=== PATIENT | female | born 1975 ===

== ENCOUNTER → 2022-09-28 14:16 | Outpatient (BNVA) | payer OTHER, SELFPAY | PROVIDERS: Visit Provider Physician Assistant Surgical ==

== ENCOUNTER 2022-12-20 14:23 | Outpatient (AMB) | payer OTHER, SELFPAY ==
--- NOTE | 2022-12-20 14:51 | MHC.OFFVISWM ---
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: office cmi Allergies sertraline [From ZOLOFT] Allergy (Unknown, Unverified 02/04/20 15:26) FEELS HOT dust,pollen,mold Allergy (Mild, Uncoded 12/20/22 14:59) Itchy Eyes Medication List - Last Reconciled 12/20/22 by PRITESH Knight aspirin 81 mg PO DAILY buspirone 10 mg PO BID diphenhydramine HCl (Banophen) 25 mg PO TID PRN docusate sodium 100 mg PO DAILY fexofenadine 180 mg PO DAILY loratadine (Allergy Relief (loratadine)) 5 mg PO BID topiramate 50 mg PO DAILY HPI HPI Comments History of Present Illness Details Pt is here to start the [facility] surgical weight loss program. She heard about our program on social media. Her goal is to lose weight and achieve a healthy lifestyle. She reports first being concerned about her weight over the last 5 years, highest weight to date was 216. Current weight is 194.8 pounds with a BMI of 36.8. She has tried multiple methods of weight loss including fad diets without permanent results. She lives with her . She does not work. She wakes at:?8 am, and goes to bed at?10 pm. Dinner is at 4. Breakfast: skip or coffee w cream and little sugar AM snack: skip Lunch: skip PM snack: skip Dinner: rice, meat, eggs, bread After dinner: chips, donuts Other snacks: as above Liquids: 64-96 oz water, no soda, no juice Alcohol/marijuana/tobacco intake: none Exercise: none, can join [employer] GERD score: 19 ESTER score: 6 ESS score: 1 QOL score: 115 [facility] Surgical History Hx of cholecystectomy Hx of tubal ligation Family History Mother Arthritis Osteoarthritis High cholesterol Hypertension Diabetes Heart problem Father Liver problem Diabetes Hypertension High cholesterol Social History Alcohol intake: never Patient Tobacco Use Status: Never used Tobacco Review of Systems Const All systems reviewed & are unremarkable except as noted in HPI and below Physical Exam Vital Signs: Last Vital Signs Temp 97.2 F 12/20/22 15:04 Pulse 72 12/20/22 15:04 BP 129/69 12/20/22 15:04 Pulse Ox 98 12/20/22 15:04 Oxygen Delivery Method Room Air 12/20/22 15:04 BMI result Body Mass Index 36.8 Const General: cooperative, healthy appearing and no acute distress Orientation/consciousness: patient oriented x3 HEENT Head: Yes normal to inspection Ears: hearing grossly normal bilaterally General nose exam: Normal external nose present Face and sinus: Yes normal facial exam Eyes General: appearance normal, both eyes and all related structures Resp Effort & Inspection: normal respiratory effort Auscultation: clear to auscultation bilaterally Cardio Rate: regular rate Rhythm: regular rhythm Heart sounds: S1 normal heart sound present and S2 normal heart sound present GI Inspection: Yes normal to inspection, No distended, Yes incision (well healed open cholecystectomy scar) and Yes obesity Palpation (GI): Soft to palpation, nontender and no guarding Auscultation: normal bowel sounds Skin General skin exam: no rashes or lesions noted Neuro General: patient oriented x3 Extrem General: No edema Psych Appearance: grossly normal Mental Status: mental status grossly normal Speech and movement: Normal speech and movement present Affect: normal affect Attitude: cooperative Assessment & Plan Assessment & Plan (1) Obesity (BMI 30-39.9): Code(s): E66.9 - Obesity, unspecified Plan: This is a?47 yo female who will start our SWL program to prepare for bariatric surgery.? Blood work, h pylori , CXR, ECG, Abd US and UGI have been ordered. She is being scheduled for RD and BH initial consultations. She will start SWL classes and watch the first three videos before her next appointment. ? Adequate sleep of 7-8 hours per night discussed, awakening at 8 am and going to bed around 10 pm ? Purchase body composition analyzer scale (Joe raygoza or Mimi perez) and check weight weekly. The best time to do this is first thing in the morning after going to the bathroom. 1. Nutritional counseling: Be sure to careful read the number of scoops per shake Start with 3 Premier Protein shakes ([employer], [employer], [facility]), First shake (1 scoop in 8 oz low fat unsweetened almond milk or water) at 9am-11am, Second shake (1/2 scoop in 8 oz unsweetened almond milk or water) at 1pm-3pm Dinner at 4pm (8 forks of protein and 8 forks of salad/vegetables). Meal to include lean meat (beef, fish, pork, turkey, chicken), cooked vegetables or a salad with olive oil and/or fruits (berries, pears, apples, kiwi). Avoid salt, breads, potatoes, rice, pasta, desserts. 1 protein bar (Zone Perfect bars at [employer], [employer], or [employer]) at 5pm-7pm. Another shake with 1/2 scoop in 8 oz unsweetened almond milk at 8pm-10pm. Try to drink 64 oz of water daily and avoid soda and juices. ?2. Each shake would be drunk slowly, like coffee in a period of 2 hours. ?3. Cut each bar in 4 pieces and eat each piece in 30 min ?to make each bar last 2 hours. ?4. I emphasized the importance of measuring accurately the food portion and measure it carefully when serving the food on the plate ?5. The meal portions include 8 full-size forks of meat and 8 full-size forks of salad. You always eat the meat portion but you can replace up to half of the forks of salad/vegetables with rice, potatoes or pasta, or a fruit ?if you like. The less you do it the better weight loss will be. ?6. One full-size fork is what can be scooped on the fork without falling aside and not what can be bit with the fork. Use regular forks like those you find in a typical restaurant. ?7.? Please send me weight measurements as soon as possible and then once a week. Always include your diet and exercise plan. Alternatively come weekly at the office for weight checks and send me the measurements. ?8. Exercise counseling: Begin by watching a stretching for beginners video. Start slowly and begin to stretch your muscles. You should do this before and after each exercise session to prevent injury. Please join [employer] gym near your home. Ask the distribution center manager or one of the trainers how to use the machines if you are unfamiliar with them. Start elliptical with a resistance of 2. Increase resistance by 1 every 3 min to your most comfortable resistance with a max resistance of 8. Reduce the resistance by 1 every 3 minutes back down to 2 and repeat cycles for 300 calories. Alternatively, start treadmill with a speed of 3.0 and incline of 0, increasing incline by 1 every 3 minutes to the highest comfortable level (max 6 for now) then decrease in the same fashion. Repeat process to a goal of 300 calories. Goal of 2000 calories burned or more weekly. You may also consider use of the stationary bike. The easiest would be to chose the fat-burn or interval training program on the machine and do this until you reach the 300 calorie goal. Alternatively, you can manually adjust the resistance in a similar fashion as mentioned above, (resistance of 2-8 with a goal speed of 12 mph). Tracking calories is essential. 9. Alternatively start walking outside daily, tracking calories with a goal of 300 calories per day, daily. You can download the an[employer] Pop[employer] which can track your time, distance and calories while walking outside. You press start in the anastasiya when you start and then stop when you are finished. 10.? It is important to avoid for at least 18 months postoperatively and it has been discussed at the information session 11. Please get labs, EKG and chest X-Ray within 1 week. 12. Discussed and answered all questions regarding?obtained consent to participate in the [place] [facility]?Registry. 13. Please follow the diet plan exactly, without any change. If you do not like something about the plan or you feel hungry, you need to communicate with me so I can help you revise the plan. You should not change the plan yourself. Text me at [phone] 14. Goal is to lose at least 12 pounds in the first month 15. Goal is to lose 10% of your weight before surgery, which is about 19 lbs. Ultimate weight goal: 175 lbs before surgery 16. Per your insurance company, you will need to be in our program for 3 months prior to approval of your surgery Patient is morbidly obese and is not considered stable at this time.?I spent a total of 70 minutes reviewing/updating records, examining the patient and counseling the patient on weight management as detailed above. Orders: Orders Vitamin B12 and Folate Today E66.9 - Obesity, unspecified Comprehensive Met. Panel Today E66.9 - Obesity, unspecified C Reactive Protein Today E66.9 - Obesity, unspecified Ferritin Today E66.9 - Obesity, unspecified Hemoglobin A1c Today E66.9 - Obesity, unspecified Insulin Today E66.9 - Obesity, unspecified IRON PROFILE Today E66.9 - Obesity, unspecified Lipid Panel Today E66.9 - Obesity, unspecified PTHI Today E66.9 - Obesity, unspecified TSH reflex Free T4 Today E66.9 - Obesity, unspecified Vitamin A Today E66.9 - Obesity, unspecified Vitamin B1 Today E66.9 - Obesity, unspecified Vitamin D 25-OH Total Today E66.9 - Obesity, unspecified Zinc Today E66.9 - Obesity, unspecified ECG 12 lead EKG Today E66.9 - Obesity, unspecified FL upper GI w air Today E66.9 - Obesity, unspecified Complete Blood Count Auto Diff Today E66.9 - Obesity, unspecified H Pylori Breath Test Today E66.9 - Obesity, unspecified US abdomen comp w elastography Today E66.9 - Obesity, unspecified XR chest 2V Today E66.9 - Obesity, unspecified Referrals Behavioral Health Referral E66.9 - Obesity, unspecified Nutrition/Dietitian Referral E66.9 - Obesity, unspecified Coding Level of Care Code New Pt Level 5 (80182) Diagnoses Obesity (BMI 30-39.9) E66.9 Time Spent (min) 99
[2022-12-20 15:04] VITALS: BP 129/69; PULSE 72; TEMP 36.2; O2SAT 98; BMI 36.8
== END 2022-12-20 17:13 | disposition home or self-care (01) ==
PROVIDERS: Visit Provider Physician Assistant Surgical
DX: E66.9 Obesity, unspecified (principal); Z68.36 Body mass index [BMI] 36.0-36.9, adult
CPT/HCPCS: 99205

== ENCOUNTER → 2022-12-20 14:23 | Outpatient (BNVA) | payer OTHER, SELFPAY | PROVIDERS: Visit Provider Physician Assistant Surgical | DX: E66.9 Obesity, unspecified (principal); Z68.36 Body mass index [BMI] 36.0-36.9, adult | CPT/HCPCS: 99202 ==

== ENCOUNTER 2022-12-25 13:56 | Outpatient (REF) | payer OTHER, SELFPAY ==
--- NOTE | ~2022-12-25 | XR_ITS ---
EXAMINATION: XR CHEST CLINICAL INFORMATION: Obesity COMPARISON: None available. TECHNIQUE: 2 views of the chest were obtained. FINDINGS: No significant abnormality is noted involving the heart, lungs, mediastinum, bony thorax or soft tissues. XR/XR chest 2V IMPRESSION: Unremarkable chest examination.
[2022-12-25 14:11] LABS: MANUAL DIFF FLAG NO
--- NOTE | 2022-12-25 14:26 | ECG_ITS ---
Test Reason : E66.9 Blood Pressure : / mmHG Vent. Rate : 073 BPM Atrial Rate : 073 BPM P-R Int : 166 ms QRS Dur : 084 ms QT Int : 390 ms P-R-T Axes : 044 009 013 degrees QTc Int : 429 ms Normal sinus rhythm Normal ECG No previous ECGs available Referred By: Karl Jain Electronically Signed By:Festus Flores
[2022-12-25 14:48] LABS: Basophils Percent Auto 0.6 % (0-2); Eosinophils Absolute Auto 0.1 X10*3/uL (0.0-0.4); Eosinophils Percent Auto 0.8 % (0-4); Hematocrit 39.1 % (37.0-47.0); Hemoglobin 12.7 g/dl (12.0-16.0); Imm Gran Abs Auto 0.02 X10*3/uL (0.00-0.03); Imm Gran Pct Auto 0.3 % (0.0-0.4); Lymphocytes Absolute Auto 1.9 X10*3/uL (1.2-4.9); Lymphocytes Percent Auto 26.1 % (20-40); Mean Corpuscular HGB Conc 32.5 g/dl (31.0-35.0); Mean Corpuscular Hemoglobin 28.2 pg (27.0-33.0); Mean Corpuscular Volume 86.7 fL (80.0-98.0); Mean Platelet Volume 10.7 fL (9.4-12.3); Monocytes Absolute Auto 0.5 X10*3/uL (0.1-1.2); Monocytes Percent Auto 6.8 % (2-11); Neutrophils Absolute Auto 4.7 x10*3/uL (2.0-8.3); Neutrophils Percent Auto 65.4 % (45-73); Platelet Count 339 X10*3/uL (160-400); Red Blood Count 4.51 X10*6/uL (4.20-5.50); Red Cell Distribution Width 13.5 % (11.0-16.0); White Blood Count 7.2 X10*3/uL (4.8-10.8)
[2022-12-25 15:51] LABS: Estimated Average Glucose 123 mg/dL; Hemoglobin A1c % 5.9 %
[2022-12-25 16:13] LABS: Alanine Aminotransferase 32 U/L (0-31); Albumin Level 4.4 g/dL (3.5-5.0); Alkaline Phosphatase 78 U/L (39-117); Anion Gap 14 (12-20); Aspartate Amino Transferase 24 U/L (5-31); Bilirubin Total 0.5 mg/dL (0.0-1.0); Blood Urea Nitrogen 20 mg/dL (9-16); C Reactive Protein 0.74 mg/dL (< or = 0.50); Calcium 9.9 mg/dL (8.4-10.2); Carbon Dioxide 21 mmol/L (22-29); Chloride 110 mmol/L (96-108); Cholesterol 241 mg/dL; Estimated Glomerular Filt Rate > 60; Glucose Random 101 mg/dL (60-115); HDL Cholesterol 44 mg/dL; Iron 56 mcg/dL (30-160); LDL Cholesterol Calculated 165 mg/dl; Percent Iron Saturation 20 % (15-50); Potassium 3.6 mmol/L (3.3-5.1); Sodium 141 mmol/L (135-145); Total Iron Binding Capacity 284 mcg/dL (228-428); Total Protein 8.1 g/dL (6.5-8.0); Triglycerides 164 mg/dL; Unsaturated Iron Binding 228 ug/dL
[2022-12-25 16:19] LABS: Ferritin 248 ng/mL (10-250); Insulin 19 uU/mL (2-29); TSH reflex Free T4 0.79 uIU/mL (0.32-4.0); Vitamin D 25-OH Total 28.8 ng/mL (>30)
[2022-12-25 16:30] LABS: Folate 13.9 ng/mL (> or = 4.0); Vitamin B12 552 pg/mL (200-900)
[2022-12-27 22:09] LABS: Calcium (PTHI) 9.8 mg/dL (8.6-10.2); PTHI 41 pg/mL (16-77)
[2022-12-28 17:02] LABS: Zinc 83 mcg/dL (60-130)
[2022-12-29 17:44] LABS: Vitamin A 76 mcg/dL (38-98)
[2022-12-31 05:18] LABS: Vitamin B1 10 nmol/L (8-30)
== END 2022-12-25 13:57 | disposition home or self-care (01) ==
LOC: HO.XRAY 13:56
PROVIDERS: Visit Provider Physician Assistant Surgical
DX: E66.9 Obesity, unspecified (principal)
CPT/HCPCS: 36415; 71046; 80053; 80061; 82306; 82607; 82728; 82746; 83036; 83525; 83540; 83970; 84425; 84443; 84590; 84630; 85025; 86140; 93005

== ENCOUNTER → 2022-12-25 14:26 | Outpatient (BNV) | payer OTHER, SELFPAY | PROVIDERS: Visit Provider Internal Medicine Cardiovascular Disease | DX: E66.9 Obesity, unspecified (principal) | CPT/HCPCS: 93010 ==

== ENCOUNTER → 2023-01-04 14:30 | Outpatient (BNVA) | payer OTHER, SELFPAY | PROVIDERS: PCP Internal Medicine; Visit Provider Dietitian, Registered | DX: E66.9 Obesity, unspecified (principal); Z68.35 Body mass index [BMI] 35.0-35.9, adult; Z90.49 Acquired absence of other specified parts of digestive tract; Z71.3 Dietary counseling and surveillance | CPT/HCPCS: 97802 ==

== ENCOUNTER 2023-01-18 12:35 | Outpatient (AMB) | payer OTHER, SELFPAY ==
--- NOTE | 2023-01-18 12:38 | A.OFFVIS_ITS ---
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 Allergies sertraline [From ZOLOFT] Allergy (Unknown, Unverified 01/18/23 12:53) FEELS HOT dust,pollen,mold Allergy (Mild, Uncoded 01/18/23 12:53) Itchy Eyes Medication List - Last Reconciled 01/18/23 by PRITESH Knight aspirin 81 mg PO DAILY buspirone 10 mg PO BID cholecalciferol (vitamin D3) 125 mcg PO DAILY 90 days diphenhydramine HCl (Banophen) 25 mg PO TID PRN docusate sodium 100 mg PO DAILY fexofenadine 180 mg PO DAILY loratadine (Allergy Relief (loratadine)) 5 mg PO BID riboflavin (vitamin B2) 400 mg PO DAILY topiramate 50 mg PO DAILY HPI HPI Comments History of Present Illness Details The patient is a pleasant 47 year old female who returns to the clinic for pre-operative surgical weight loss management. They were last seen in the o ffice on 12/20/22, recorded weight at that time was 194.8 pounds, with a BMI of 36.8. Today's weight is 186 pounds and BMI is 35.1. There has been a weight loss of 8.8 pounds since initiating the surgical weight loss program on 12/20/22 with a total body weight loss of 4.5 %. Pre op work up completed as follows: SWL classes:? 08/25 BH appts: 01/28/23 ? ? RD appts: f/u 02/08/23 Labs: 12/25/22-low D H. pylori: 01/18/23-P CXR: 12/25/22-nad EK12/25/22-normal ABD U/S: 01/22/23 UGI: 01/22/23 The patient reports she is following the meal plan. Current meal plan includes: 3 Premier Protein shakes ([employer], [employer], [employer]), First shake (1 scoop in 8 oz low fat unsweetened almond milk or water) at 9am- 11am, Second shake (1/2 scoop in 8 oz unsweetened almond milk or water) at 1pm-3pm Dinner at 4pm (8 forks of protein and 8 forks of salad/vegetables). 1 protein bar (Zone Perfect bars at [employer], [facility], or [employer]) at 5pm-7pm. Another shake with 1/2 scoop in 8 oz unsweetened almond milk at 8pm-10pm. Drinking 32 oz of water Current exercise plan includes: treadmill at home, daily, 300 calories, speed 2.4 incline 3-6 PFSH Surgical History Hx of cholecystectomy Hx of tubal ligation Family History Mother Arthritis Osteoarthritis High cholesterol Hypertension Diabetes Heart problem Father Liver problem Diabetes Hypertension High cholesterol Social History Alcohol intake: never Patient Tobacco Use Status: Never used Tobacco Review of Systems Const All systems reviewed & are unremarkable except as noted in HPI and below Physical Exam Vital Signs: Last Vital Signs Temp 97.3 F 01/18/23 12:51 Pulse 75 01/18/23 12:51 BP 129/76 01/18/23 12:51 Pulse Ox 96 01/18/23 12:51 Oxygen Delivery Method Room Air 01/18/23 12:51 BMI result Body Mass Index 35.1 Const General: healthy appearing and no acute distress Resp Effort & Inspection: normal respiratory effort Auscultation: clear to auscultation bilaterally Cardio Rate: regular rate Rhythm: regular rhythm GI Auscultation: normal bowel sounds Extrem General: Yes normal to inspection Assessment & Plan Assessment & Plan (1) Obesity (BMI 30-39.9): Code(s): E66.9 - Obesity, unspecified Plan: change meal plan to : 3 Premier Protein shakes ([employer], [employer], [employer]), First shake (1 scoop in 8 oz low fat unsweetened almond milk or water) at 9am- 11am, Second shake (1/2 scoop in 8 oz unsweetened almond milk or water) at 1pm-3pm Dinner at 4pm (8 forks of protein and 8 forks of salad/vegetables). Another shake with 1/2 scoop in 8 oz unsweetened almond milk at 8pm-10pm. May move to 7-9 pm as needed Reminded of upcoming appts rct 1 month Coding Level of Care Code Est Pt Level 3 (69650) Diagnoses Obesity (BMI 30-39.9) E66.9
[2023-01-18 12:51] VITALS: BP 129/76; PULSE 75; TEMP 36.3; O2SAT 96; BMI 35.1
== END 2023-01-18 13:24 | disposition home or self-care (01) ==
PROVIDERS: Visit Provider Physician Assistant Surgical
DX: E66.9 Obesity, unspecified (principal); Z68.35 Body mass index [BMI] 35.0-35.9, adult
CPT/HCPCS: 99213

== ENCOUNTER → 2023-01-18 12:35 | Outpatient (BNVA) | payer OTHER, SELFPAY | PROVIDERS: Visit Provider Physician Assistant Surgical | DX: Z11.0 Encounter for screening for intestinal infectious diseases (principal); E66.9 Obesity, unspecified; Z68.35 Body mass index [BMI] 35.0-35.9, adult | CPT/HCPCS: 83013; 99212 ==

== ENCOUNTER 2023-01-22 07:44 | Outpatient (REF) | payer OTHER, SELFPAY ==
--- NOTE | ~2023-01-22 | FL_ITS ---
EXAMINATION: XR FLUOROSCOPY UPPER GI WITH AIR CLINICAL INFORMATION: Preop bariatric surgery; obesity unspecified; mild gastroesophageal reflux. COMPARISON: None TECHNIQUE: Fluoroscopic air contrast upper GI examination was performed utilizing standard techniques with thin and thick barium and effervescent granules. Numerous spot images were obtained. FINDINGS: Lateral cine images of the oropharynx and hypopharynx demonstrate normal swallow mechanism with normal epiglottic inversion and soft palate elevation. No tracheal penetration, glottic or subglottic aspiration identified. No nasopharyngeal reflux present. Hypopharyngeal structures appear normal without evidence of mass or diverticulum. There was no significant cricopharyngeal achalasia. Dual and single contrast images of the esophagus demonstrate normal caliber, contour, and mucosal pattern. No evidence of stricture, mass, or ulcerations identified. Esophageal peristalsis was essentially normal. No evidence of hiatus hernia identified. Mild gastroesophageal reflux was seen during the course of the examination, to the level of the sera. Dual contrast and single contrast images of the stomach demonstrated normal contour and mucosal pattern without evidence of mass, ulceration, or other abnormality. Contrast freely passed into the gastric antrum and duodenal bulb without delay. Single and air-contrast images of the duodenal bulb demonstrate no abnormality. The duodenal sweep has a normal appearance, course, and mucosal fold appearance. The imaged proximal jejunum has a normal fold pattern and caliber. Of note was rapid transit of contrast into the proximal and mid small bowel, with contrast in the region of the mid to distal ileum at the and of the examination. The patient did state she was taking laxative of some sort but could not remember what. Cholecystectomy clips noted. FLUOROSCOPY TIME: 3.6 minutes. Number of Spot Images: 24 DOSE AREA PRODUCT: 43.926 uGy-m2 (microgray-meter squared) FL/FL upper GI w air IMPRESSION: 1. Mild gastroesophageal reflux. Remainder the examination was normal aside from somewhat rapid transit through the small bowel as detailed.
--- NOTE | ~2023-01-22 | US_ITS ---
EXAMINATION: US COMPLETE ABDOMEN WITH LIVER ELASTOGRAPHY CLINICAL INFORMATION: Obesity COMPARISON: None available. TECHNIQUE: Real-time imaging of the abdominal viscera. Noninvasive ultrasound liver fibrosis assessment is performed using Julissa ElastPQ point quantification shear wave elastography (2D-SWE) with a C5-2 MHz transducer. Multiple elastography samples are obtained. FINDINGS: PANCREAS: Not well visualized due to overlying bowel gas. ABDOMINAL AORTA: The proximal, middle, and distal aortic segments are normal in caliber. INFERIOR VENA CAVA: Visualized portions are normal. LIVER: Echogenic liver. Normal size and contour. No focal lesion or intrahepatic biliary duct dilatation. The right lobe measures 17 cm in length. The left lobe measures 7 cm in length. Portal flow is normal/hepatopedal Shear wave liver elastography median stiffness is 1.7 m/s (reference: normal median stiffness is 1.3 m/s or less). IQR/median stiffness to assess sampling precision is 0.08 (reference: good quality data set is IQR/median stiffness of 0.15 or less). GALLBLADDER: Surgically removed COMMON BILE DUCT: Normal in caliber measuring 0.6 cm in diameter. RIGHT KIDNEY: Normal. No hydronephrosis. No renal calculi or focal parenchymal lesions. The kidney measures 11 cm in maximum dimension. LEFT KIDNEY: Normal. No hydronephrosis. No renal calculi or focal parenchymal lesions. The kidney measures 11.66 cm in maximum dimension. SPLEEN: Normal. The spleen measures 9 cm in maximum dimension. FREE FLUID: None. US/US abdomen comp w elastography IMPRESSION: 1. Impression: Echogenic liver probably representing fatty infiltration. Limited visualization of the pancreas. 2. Liver elastography: Adequate liver sampling. Slightly increased liver stiffness suggestive of compensated advanced chronic liver disease but need further test for confirmation. REFERENCE: Society of Radiologists in Ultrasound Liver Stiffness Thresholds (2020): LIVER STIFFNESS THRESHOLDS: *Liver Stiffness equal or less than 1.3 m/s: High probability of being normal. *Liver Stiffness less than 1.7 m/s: In the absence of other known clinical signs, rules out compensated advanced chronic liver disease. *Liver Stiffness 1.7-2.1 m/s: Suggestive of compensated advanced chronic liver disease but need further test for confirmation. *Liver Stiffness over 2.1 m/s: Rules in compensated advanced chronic liver disease. *Liver Stiffness over 2.4 m/s: Suggestive of clinically significant portal hypertension. QUALITY OF DATA SET: *IQR/Median value equal or less than 0.15 implies a quality data set. *IQR/Median value over 0.15 implies a poor quality data set. SIGNIFICANT CHANGE FROM PRIOR EXAM: Significant change if liver stiffness measurement is 10% or greater from prior exam. OTHER CONSIDERATIONS: The stage of liver fibrosis may be overestimated in the setting of acute hepatitis, liver inflammation, elevated liver function tests, hepatic vascular congestion, obstructive cholestasis, non-fasting state, and infiltrative diseases such as amyloidosis and lymphoma. In some patients with NAFLD, the liver stiffness thresholds for compensated advanced chronic liver disease may be lower. In causes other than viral hepatitis and NAFLD, liver stiffness thresholds are not well established.
== END 2023-01-22 07:45 | disposition home or self-care (01) ==
LOC: HO.US 07:44
PROVIDERS: PCP Internal Medicine; Visit Provider Physician Assistant Surgical
DX: E66.9 Obesity, unspecified (principal)
CPT/HCPCS: 74246; 76705; 76981

== ENCOUNTER → 2023-01-22 07:45 | Outpatient (BNV) | payer OTHER, SELFPAY | PROVIDERS: PCP Internal Medicine; Visit Provider Radiology Diagnostic Radiology | DX: K21.9 Gastro-esophageal reflux disease without esophagitis (principal) | CPT/HCPCS: 74246 ==

== ENCOUNTER 2023-02-11 12:00 | Outpatient (AMB) | payer OTHER, SELFPAY ==
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
== END 2023-02-11 13:00 | disposition home or self-care (01) ==
LOC: HO.HBST 12:34
PROVIDERS: PCP Internal Medicine; Visit Provider Counselor Mental Health
DX: F43.9 Reaction to severe stress, unspecified (principal); F41.8 Other specified anxiety disorders; F41.0 Panic disorder [episodic paroxysmal anxiety]
CPT/HCPCS: 90791

== ENCOUNTER → 2023-02-11 12:00 | Outpatient (BNVA) | payer OTHER, SELFPAY | PROVIDERS: PCP Internal Medicine; Visit Provider Counselor Mental Health ==

== ENCOUNTER 2023-02-22 08:44 | Outpatient (AMB) | payer OTHER, SELFPAY ==
--- NOTE | 2023-02-22 08:49 | A.OFFVIS_ITS ---
Intake VS Expanded 02/22/23 09:03 BP 112/68 Blood Pressure Location Rt brachial Blood Pressure Position Sitting Pulse 68 Pulse Source Pulse Oximeter Temp 96.4 F L Temperature Source Temporal Artery Scan Pulse Oximetry 99 Oxygen Delivery Method Room Air Height 5 ft 1 in Weight 177 lb BMI 33.4 Body Fat % 41.9 Body Fat Mass 74.0 Fat Free Mass 102.8 Visceral Fat Rating 10.0 Body Water % 41.4 Body Water Mass 73.2 Muscle Mass/Score 97.4 Basal Metabolic Rate/Score 1,436 Intake Visit Reasons: (OV) F/U SWL Global Safety Officer Required: Yes Global Safety Officer Name: office cmi Allergies sertraline [From ZOLOFT] Allergy (Unknown, Verified 02/22/23 08:58) FEELS HOT dust,pollen,mold Allergy (Mild, Uncoded 01/18/23 12:53) Itchy Eyes Medication List - Last Reconciled 02/22/23 by PRITESH Knight aspirin 81 mg PO DAILY bupropion HCl (Wellbutrin XL) 300 mg PO QAM buspirone 10 mg PO BID cholecalciferol (vitamin D3) 125 mcg PO DAILY 90 days diphenhydramine HCl (Banophen) 25 mg PO TID PRN docusate sodium 100 mg PO DAILY fexofenadine 180 mg PO DAILY loratadine (Allergy Relief (loratadine)) 5 mg PO BID riboflavin (vitamin B2) 400 mg PO DAILY topiramate 50 mg PO DAILY HPI HPI Comments History of Present Illness Details The patient is a pleasant 47 year old female who returns to the clinic for pre-operative surgical weight loss management. They were last seen in the office on 01/18/23, recorded weight at that time was 186 pounds, with a BMI of 35.1. Today's weight is 177 pounds and BMI is 33.4. There has been a weight loss of 17.8 pounds since initiating the surgical weight loss program on 12/20/22 with a total body weight loss of 9.1 %. Pre op work up completed as follows: SWL classes:? 08/25 BH appts: f/u 03/13/23 ? ? RD appts: f/u 03/05/23 Labs: 12/25/22-low D H. pylori: 01/18/23-neg CXR: 12/25/22-nad EK12/25/22-normal ABD U/S: 01/22/23-fatty liver UGI: 01/22/23-mild gerd The patient reports she is following the meal plan. Current meal plan includes: 3 Premier Protein shakes ([employer], [employer], [employer]), First shake (1 scoop in 8 oz low fat unsweetened almond milk or water) at 9am- 11am, Second shake (1/2 scoop in 8 oz unsweetened almond milk or water) at 1pm-3pm Dinner at 4pm (8 forks of protein and 8 forks of salad/vegetables). Another shake with 1/2 scoop in 8 oz unsweetened almond milk at 8pm-10pm. May move to 7-9 pm as needed Drinking 32 oz of water Current exercise plan includes: treadmill at home, daily, 300 calories, speed 2.4 incline 3-6 PFSH Surgical History Hx of cholecystectomy Hx of tubal ligation Family History Mother Arthritis Osteoarthritis High cholesterol Hypertension Diabetes Heart problem Father Liver problem Diabetes Hypertension High cholesterol Social History Alcohol intake: never Patient Tobacco Use Status: Never used Tobacco Review of Systems Const All systems reviewed & are unremarkable except as noted in HPI and below Physical Exam Const General: healthy appearing and no acute distress Resp Effort & Inspection: normal respiratory effort Auscultation: clear to auscultation bilaterally Cardio Rate: regular rate Rhythm: regular rhythm GI Auscultation: normal bowel sounds Extrem General: Yes normal to inspection Assessment & Plan Assessment & Plan (1) Obesity (BMI 30-39.9): Code(s): E66.9 - Obesity, unspecified Plan: change meal plan 2 Premier Protein shakes ([employer], [employer], [employer]), First shake (1/2 scoop in 8 oz low fat unsweetened almond milk or water) at 9am- 11am, Second shake (1/2 scoop in 8 oz unsweetened almond milk or water) at 1pm-3pm Dinner at 4pm (7 forks of protein and 7 forks of salad/vegetables). continue exercise speed 2.8 incline 0-6 reminded of upcoming BH/RD appts transfer care to Dr Trivedi Coding Level of Care Code Est Pt Level 3 (35418) Diagnoses Obesity (BMI 30-39.9) E66.9
[2023-02-22 09:03] VITALS: BP 112/68; PULSE 68; TEMP 35.8; O2SAT 99; BMI 33.4
== END 2023-02-22 09:19 | disposition home or self-care (01) ==
PROVIDERS: Visit Provider Physician Assistant Surgical
DX: E66.9 Obesity, unspecified (principal); Z68.33 Body mass index [BMI] 33.0-33.9, adult
CPT/HCPCS: 99213

== ENCOUNTER → 2023-02-22 08:44 | Outpatient (BNVA) | payer OTHER, SELFPAY | PROVIDERS: Visit Provider Physician Assistant Surgical | DX: E66.9 Obesity, unspecified (principal); Z68.33 Body mass index [BMI] 33.0-33.9, adult | CPT/HCPCS: 99212 ==

== ENCOUNTER 2023-03-05 15:46 | Outpatient (AMB) | payer OTHER, SELFPAY ==
--- NOTE | 2023-03-05 15:42 | A.OFFVIS_ITS ---
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 194# current weight 177# Reason for consult elevated BMI Diet Assmnt0 Details pt states she is getting bored of her nutrition plan 9am-11am shake 1/2 scoop premier powder - 7g protein 1-3pm shake 1/2 scoop premier powder - 7 g protein [id number]: fish or chicken 8 forks of each protein intake is only about 40g per day SWL online classes: completed, did not score well on class 4 Dietary counseling reduction Diagnosis Nutrition problem #1 overweight/obesity As related to (etiology) #1 excess energy intake and physical inactivity As evidenced by (sign/symptom) #1 high BMI Monitoring/Goals Nutrition problem monitoring total energy intake, level of knowledge/skill, total PRO intake, total CHO intake and weight Outcome progress progressing Learning/Education Readiness to learn good Stages of change action Educational materials provided Yes (MN cookbook, macros, label, expect post op) Most Recent Diabetes Results: No Data to Display PFSH Surgical History Hx of cholecystectomy Hx of tubal ligation Family History Mother Arthritis Osteoarthritis High cholesterol Hypertension Diabetes Heart problem Father Liver problem Diabetes Hypertension High cholesterol Social History Alcohol intake: never Patient Tobacco Use Status: Never used Tobacco Assessment & Plan Assessment & Plan (1) Obesity (BMI 30-39.9): Code(s): E66.9 - Obesity, unspecified Patient Instructions: Patient is cleared from a nutrition standpoint for bariatric surgery. Educational requirements have been completed. Reviewed vitamin supplementation and commitment to protein shake for several months post surgery. Encouraged communication with office as needed talk to MD or PA as protein intake is low Telehealth Telehealth Location of provider rendering services: practice address Location of patient: address on file Patient Identification confirmed using: Name, : Yes Telehealth method: voice only Patient verbally consented to treatment: Yes Patient verbally consented to billing insurance company: Yes Patient informed of any privacy concerns related to visit: Yes Minutes spent on Phone/Video with Pt.: 30 Coding Level of Care Code Nutr Indiv Subseq (24895) Diagnoses Obesity (BMI 30-39.9) E66.9 Time Spent (min) 30
== END 2023-03-05 16:02 | disposition home or self-care (01) ==
LOC: HO.HBS 15:46
PROVIDERS: Visit Provider Dietitian, Registered
DX: E66.9 Obesity, unspecified (principal)

== ENCOUNTER → 2023-03-05 15:46 | Outpatient (BNVA) | payer OTHER, SELFPAY | PROVIDERS: Visit Provider Dietitian, Registered | DX: E66.9 Obesity, unspecified (principal); Z90.49 Acquired absence of other specified parts of digestive tract | CPT/HCPCS: 97803 ==

== ENCOUNTER 2023-03-22 08:04 | Outpatient (AMB) | payer OTHER, SELFPAY ==
--- NOTE | 2023-03-22 09:47 | MHC.OFFVISWM ---
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* Allergies sertraline [From ZOLOFT] Allergy (Unknown, Verified 03/22/23 09:48) FEELS HOT dust,pollen,mold Allergy (Mild, Uncoded 03/22/23 09:48) Itchy Eyes Medication List - Last Reconciled 03/22/23 by Kaiden Fisher MD aspirin 81 mg PO DAILY bupropion HCl (Wellbutrin XL) 300 mg PO QAM buspirone 10 mg PO BID cholecalciferol (vitamin D3) 125 mcg PO DAILY 90 days diphenhydramine HCl (Banophen) 25 mg PO TID PRN docusate sodium 100 mg PO DAILY fexofenadine 180 mg PO DAILY loratadine (Allergy Relief (loratadine)) 5 mg PO BID nabumetone 500 mg PO BID riboflavin (vitamin B2) 400 mg PO DAILY topiramate 50 mg PO DAILY HPI TV Consult/Transfer 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* HPI Details Start time: 9.30am, End time: 10.38am ?I spent 63 minutes speaking with the patient on the phone plus an additional 5 minutes reviewing and updating records for a total of 68 minutes HPI Comments History of Present Illness Details Overall weight loss: 19.5lbs, or 10.01% TBWL Is doing 2 Premier protein shakes (1 scoop in 8oz almond milk) and one meal (7 forks of protein and 7 forks of salad or vegetables) Exercise: [facility] Medical History (Updated 03/22/23 @ 09:57 by Kaiden Fisher MD) DJD (degenerative joint disease) Migraines GERD (gastroesophageal reflux disease) Anxiety Depression Hyperlipidemia Surgical History Hx of tubal ligation Hx of cholecystectomy Family History Mother Arthritis Osteoarthritis High cholesterol Hypertension Diabetes Heart problem Father Liver problem Diabetes Hypertension High cholesterol Social History Alcohol intake: never Patient Tobacco Use Status: Never used Tobacco Assessment & Plan Assessment & Plan (1) Obesity (BMI 30-39.9): Code(s): E66.9 - Obesity, unspecified Plan: 1. Plan for lap sleeve gastrectomy including upper GI endoscopy. All tests has been completed and reviewed and the patient is cleared for the surgery. ?If diaphragmatic or ventral hernias are present at time of surgery, these will be repaired laparoscopically as well. Risks and complications were discussed in detail including possible conversion to an open procedure, anastomotic leak, bleeding requiring transfusion, small bowel obstruction, , DVT and pulmonary embolism, cardiac, or pulmonary complications, as jail complications such as anastomotic ulcer, insufficient weight loss and vitamin deficiencies. I emphasized the importance of close follow-up, adherence to instructions and good communication. So far she has proven to be an excellent communicator and very compliant with all our directions accomplishing a great weight loss. I believe that she is an excellent candidate and she is ready. 2. Change nutritional plan to 2 Premier protein shakes (HALF scoop each in 8oz almond milk) at 10am-12pm and 2pm-4pm, dinner at 6pm (8 forks of protein and 8 forks of marlon or vegetables) and one Celebrate protein bar at 8pm-10pm 3. continue the [employer] device daily for 30 minutes 4. Please purchase a stationary bike at home that can track calories. Let me know if you do so I can give you an exercise plan. 5. Continue to send me weight measurements weekly on (2) BMI 33.0-33.9,adult: Code(s): Z68.33 - Body mass index [BMI] 33.0-33.9, adult (3) GERD (gastroesophageal reflux disease): Code(s): K21.9 - Gastro-esophageal reflux disease without esophagitis Telehealth Telehealth Location of provider rendering services: practice address Location of patient: address on file Patient Identification confirmed using: Name, : Yes Telehealth method: voice only Patient verbally consented to treatment: Yes Patient verbally consented to billing insurance company: Yes Patient informed of any privacy concerns related to visit: Yes Minutes spent on Phone/Video with Pt.: 68 Coding Level of Care Code Tele Est Pt Level 5 (07609) Diagnoses Obesity (BMI 30-39.9) E66.9 BMI 33.0-33.9,adult Z68.33 GERD (gastroesophageal reflux disease) K21.9 Time Spent (min) 68
[2023-03-22 10:02] VITALS: BMI 33.1
== END 2023-03-22 10:39 | disposition home or self-care (01) ==
LOC: HO.HBS 08:04
PROVIDERS: Visit Provider Surgery
DX: E66.9 Obesity, unspecified (principal); Z68.33 Body mass index [BMI] 33.0-33.9, adult; K21.9 Gastro-esophageal reflux disease without esophagitis
CPT/HCPCS: 99215

== ENCOUNTER → 2023-03-22 08:04 | Outpatient (BNVA) | payer OTHER, SELFPAY | PROVIDERS: Visit Provider Surgery ==

== ENCOUNTER 2023-04-08 12:30 | Outpatient (AMB) | payer OTHER, SELFPAY ==
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
== END 2023-04-08 13:00 | disposition home or self-care (01) ==
LOC: HO.HBST 12:38
PROVIDERS: Visit Provider Counselor Mental Health
DX: F41.0 Panic disorder [episodic paroxysmal anxiety] (principal); F43.9 Reaction to severe stress, unspecified; F41.8 Other specified anxiety disorders
CPT/HCPCS: 90834

== ENCOUNTER → 2023-04-08 12:30 | Outpatient (BNVA) | payer OTHER, SELFPAY | PROVIDERS: Visit Provider Counselor Mental Health ==

== ENCOUNTER 2023-04-29 10:15 | Outpatient (REF) | payer OTHER, SELFPAY ==
[2023-04-29 10:44] LABS: MANUAL DIFF FLAG NO
[2023-04-29 10:55] LABS: Basophils Percent Auto 0.7 % (0-2); Eosinophils Absolute Auto 0.1 X10*3/uL (0.0-0.4); Eosinophils Percent Auto 1.2 % (0-4); Hematocrit 39.8 % (37.0-47.0); Hemoglobin 12.8 g/dl (12.0-16.0); Imm Gran Abs Auto 0.02 X10*3/uL (0.00-0.03); Imm Gran Pct Auto 0.3 % (0.0-0.4); Lymphocytes Absolute Auto 1.5 X10*3/uL (1.2-4.9); Lymphocytes Percent Auto 25.2 % (20-40); Mean Corpuscular HGB Conc 32.2 g/dl (31.0-35.0); Mean Corpuscular Hemoglobin 28.2 pg (27.0-33.0); Mean Corpuscular Volume 87.7 fL (80.0-98.0); Mean Platelet Volume 10.9 fL (9.4-12.3); Monocytes Absolute Auto 0.3 X10*3/uL (0.1-1.2); Monocytes Percent Auto 5.4 % (2-11); Neutrophils Absolute Auto 4.1 x10*3/uL (2.0-8.3); Neutrophils Percent Auto 67.2 % (45-73); Platelet Count 302 X10*3/uL (160-400); Red Blood Count 4.54 X10*6/uL (4.20-5.50); Red Cell Distribution Width 13.5 % (11.0-16.0); White Blood Count 6.1 X10*3/uL (4.8-10.8)
[2023-04-29 11:01] LABS: Prothrombin Time 12.1 SEC (11.1-13.3)
[2023-04-29 11:03] LABS: Partial Thromboplastin Time 31.8 SEC (26.0-36.4)
[2023-04-29 11:05] LABS: Estimated Average Glucose 126 mg/dL
[2023-04-29 11:31] LABS: Alanine Aminotransferase 41 U/L (0-31); Albumin Level 4.3 g/dL (3.5-5.0); Alkaline Phosphatase 87 U/L (39-117); Anion Gap 11 (12-20); Aspartate Amino Transferase 22 U/L (5-31); Bilirubin Total 0.4 mg/dL (0.0-1.0); Blood Urea Nitrogen 24 mg/dL (9-16); C Reactive Protein 0.43 mg/dL (< or = 0.50); Calcium 10.1 mg/dL (8.4-10.2); Carbon Dioxide 23 mmol/L (22-29); Chloride 111 mmol/L (96-108); Cholesterol 218 mg/dL (<200); Estimated Glomerular Filt Rate 52; Glucose Random 124 mg/dL (60-115); HDL Cholesterol 37 mg/dL (>40); LDL Cholesterol Calculated 151 mg/dL (<100); Potassium 4.4 mmol/L (3.3-5.1); Sodium 141 mmol/L (135-145); Triglycerides 154 mg/dL (<150)
[2023-04-29 11:52] LABS: Insulin 22 uU/mL (2-29); TSH reflex Free T4 0.94 uIU/mL (0.32-4.0)
== END 2023-04-29 10:16 | disposition home or self-care (01) ==
LOC: HO.LAB 10:15
PROVIDERS: Visit Provider Surgery
DX: E66.9 Obesity, unspecified (principal); E78.5 Hyperlipidemia, unspecified
CPT/HCPCS: 36415; 80053; 80061; 83036; 83525; 84443; 85025; 85610; 85730; 86140; 86850; 86900; 86901

== ENCOUNTER 2023-05-03 09:06 | Outpatient (AMB) | payer OTHER, SELFPAY ==
--- NOTE | 2023-05-03 09:33 | A.OFFVIS_ITS ---
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* Allergies sertraline [From ZOLOFT] Allergy (Unknown, Verified 05/03/23 09:39) FEELS HOT dust,pollen,mold Allergy (Mild, Uncoded 05/03/23 09:39) Itchy Eyes Medication List - Last Reconciled 05/03/23 by Kaiden Fisher MD bupropion HCl (Wellbutrin XL) 300 mg PO QAM buspirone 10 mg PO BID cholecalciferol (vitamin D3) 125 mcg PO DAILY 90 days diphenhydramine HCl (Banophen) 25 mg PO TID PRN docusate sodium (Colace) 100 mg PO DAILY docusate sodium 100 mg PO DAILY fexofenadine 180 mg PO DAILY loratadine (Allergy Relief (loratadine)) 5 mg PO BID nabumetone 500 mg PO BID ondansetron 4 mg PO Q12H pantoprazole 40 mg PO DAILY polyethylene glycol 3350 (Miralax) 17 grams PO DAILY riboflavin (vitamin B2) 400 mg PO DAILY sucralfate 10 mL PO BID topiramate 50 mg PO DAILY HPI TV 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* HPI Details Start time: 8.18am, End time: 9.38am ?I spent 15 minutes speaking with the patient on the phone plus an additional 5 minutes reviewing and updating records for a total of 20 minutes HPI Comments History of Present Illness Details Overall weight loss: 27.3lbs, or 14% TBWL Is doing 2 Premier protein shakes (1/2 scoop in almond milk) and 3 Premier shakes with one scoop each [facility] Medical History (Updated 04/28/23 @ 19:04 by Kaiden Fisher MD) DJD (degenerative joint disease) Migraines GERD (gastroesophageal reflux disease) Anxiety Depression Hyperlipidemia Surgical History Hx of tubal ligation Hx of cholecystectomy Family History Mother Arthritis Osteoarthritis High cholesterol Hypertension Diabetes Heart problem Father Liver problem Diabetes Hypertension High cholesterol Social History Alcohol intake: never Patient Tobacco Use Status: Never used Tobacco Assessment & Plan Assessment & Plan (1) Obesity (BMI 30-39.9): Code(s): E66.9 - Obesity, unspecified Plan: 1. Plan for lap sleeve gastrectomy including upper GI endoscopy. All tests has been completed and reviewed and the patient is cleared for the surgery. ?If diaphragmatic or ventral hernias are present at time of surgery, these will be repaired laparoscopically as well. Risks and complications were discussed in d etail including possible conversion to an open procedure, anastomotic leak, bleeding requiring transfusion, small bowel obstruction, , DVT and pulmonary embolism, cardiac, or pulmonary complications, as prison complications such as anastomotic ulcer, insufficient weight loss and vitamin deficiencies. I emphasized the importance of close follow-up, adherence to instructions and good communication. So far she has proven to be an excellent communicator and very compliant with all our directions accomplishing a great weight loss. I believe that she is an excellent candidate and she is ready. 2. Preop prescriptions were provided and explained the purpose of each one. Need to be purchased preop. Start Pantoprazole now as you get it from the pharmacy, 1 pill per day. Sucralfate and Zofran are for after surgery as needed. 3. Bowel prep: please do 7 packets ?of Miralax mixing each one with a an 8oz glass of water, crystal light, gatorade zero, or propel ?on 05/07/23 and the same amount on 05/08/23. Continue the protein shakes during ?the bowel prep. 4. Needs to purchase 1oz medicine cups . 5. Needs to purchase Children's liquid Tylenol for postop pain control. 6. She needs to stop the?aspirin and Nabumetone as of Saturday04/29/23. Avoid motrin, Advil, Aleve, Ibuprofen, Naproxyn. Tylenol is OK. 7. She needs to purchase the Celebrate 4:1 protein shakes from the hospital's gift shop. 8. Will do basic preop blood work-up any day between Saturday04/23/22 and Saturday04/27/22 fasting for 12 hours and is scheduled to see the Anesthesiologist prior to the day of surgery. 9. Importance of adherence to postop folllow-up and recommendations was underscored and she understands that. ? 10. Stop food and bars as of Saturday04/29/23 and continue with 2 Premier protein shakes (HALF scoop EACH in 8oz almond milk) at 9am-11am and 12pm-2pm,? and three more Premier protein shakes with ONE scoop in 8oz of almond milk at 3pm-5pm, 6pm-8pm and 9pm-11pm 11. No soups, broths or V8 12. The patient's medical history has been reviewed and they are considered low risk for post op DVT and therefore DVT prophylaxis is not considered necessary. Travel after surgery was reviewed. The patient has not disclosed any travel plans during the first 30 days after surgery and they have been advised that within the first 30 days after surgery any bus, plane, train or car travel over 2 hours in duration is contraindicated due to the possibility of developing blood clots from immobility. Any travel, needs to include periods of ambulation of 10 minutes in duration every 2 hours.? Patient was instructed to discuss any plans for travel during this period with their bariatric surgeon. 13. Please take at the day of surgery the following medications: NONE 14. Stop any control pills and don't use them for one month after surgery 15. Absolutely no smoking or vaping, or marijuana until the surgery and for at least the first 4 weeks. Only nicotine patches are allowed. 16. Send me weight measurements on Saturday and then on 05/09/23 the day of surgery before you go to the hospital. 17. Avoid any steroids by mouth for any reason. Let me know if someone prescribes them to you Telehealth Telehealth Location of provider rendering services: practice address Location of patient: address on file Patient Identification confirmed using: Name, : Yes Telehealth method: voice only Patient verbally consented to treatment: Yes Patient verbally consented to billing insurance company: Yes Patient informed of any privacy concerns related to visit: Yes Minutes spent on Phone/Video with Pt.: 20 Coding Level of Care Code Tele Est Pt Level 3 (78550) Diagnoses Obesity (BMI 30-39.9) E66.9 Time Spent (min) 20
[2023-05-03 09:34] VITALS: BMI 31.6
== END 2023-05-03 09:40 | disposition home or self-care (01) ==
LOC: HO.HBS 09:07
PROVIDERS: Visit Provider Surgery
DX: E66.9 Obesity, unspecified (principal)
CPT/HCPCS: 99213

== ENCOUNTER → 2023-05-03 09:06 | Outpatient (BNVA) | payer OTHER, SELFPAY | PROVIDERS: Visit Provider Surgery ==

== ENCOUNTER 2023-05-07 10:22 | Day surgery (SDC) | payer OTHER, SELFPAY ==
[2023-05-03 13:30] VITALS: BMI 31.6
--- NOTE | 2023-05-04 16:07 | MHC.SHP ---
Pre-Procedural Eval Section A Date of Service: 05/04/23 The patient is an INPATIENT: No The History & Physical has been completed within 30 days and I have reviewed it.: Yes Section B Chief Complaint: Obesity, unspecified Relevant Family History (Specify if Yes): No Relevant Social History: None Present Medications: None Medical History: No relevant PMH History of Previous Operations: No relevant previous surgery Allergies: Allergies Allergy/AdvReac Type Severity Reaction Status Date / Time sertraline [From ZOLOFT] Allergy Intermediate flushing/feels Verified 05/03/23 12:00 hot dust,pollen,mold Allergy Mild Itchy Eyes Uncoded 05/03/23 09:39 Review of Systems Sugical H&P ROS: Negative: Constitution, Cardiovascular, Respiratory, Neurological, Psychiatric, Hem-Onc, Allergic/Immunologic, Gastrointestinal, Genitourinary, Musculoskeletal, Integumentary, Endocrine and Eyes/Ears/Nose/Throat Exam Surgical H&P Exam: Normal: HEENT, Normal: Heart, Normal: Lungs, Normal: Extremities, Normal: Abdomen, Normal: Skin and Normal: Neurological Plan Diagnosis/Plan: Unchanged I have reviewed the history and physical and performed a pertinent physical examination on my patient. No changes have occurred unless specified. Time Spent With Patient Time: Total time managing care of this patient today ____ minutes.
--- NOTE | 2023-05-06 09:23 | HO.ANESPROP2 ---
Documented by User: Diana Ennis NP 05/06/23 09:25 HPI - Anesthesia Eval Consult details Narrative: 47yo F for Gastrectomy Sleeve- EGD, possible diaphragmatic hernia, possible ventral hernia, possible open PMFSH Active Problems Active Problems: All Active Problems (Updated 05/03/23 @ 13:27 by Alannah Gao RN) Constipation (Acute) BMI 33.0-33.9,adult (Acute) Obesity (BMI 30-39.9) (Acute) DJD (degenerative joint disease) (Acute) Migraines (Acute) GERD (gastroesophageal reflux disease) (Acute) Anxiety (Acute) Depression (Acute) Hyperlipidemia (Acute) Past Medical History Medical History Asthma DJD (degenerative joint disease) Migraines GERD (gastroesophageal reflux disease) Anxiety Depression Hyperlipidemia Family History Family History Mother Arthritis Osteoarthritis High cholesterol Hypertension Diabetes Heart problem Father Liver problem Diabetes Hypertension High cholesterol Surgical History Surgical History Hx of tubal ligation Hx of cholecystectomy Social History Social History Are you a primary critical care registered nurse to a significant other at home: No Do you presently have visiting nurse or other home services: No Alcohol intake: never Patient Tobacco Use Status: Former Tobacco user Quit Date: age 36 Tobacco use type: Cigarette Use of substances other than those prescribed or required for medical reasons: No Have you been hit, kicked, punched, or otherwise hurt by someone within the past year? If so, by whom?: No Are you DNR?: No Advance Directives: No Advance Directives Information Provided: No Advance Directives on File: No Recently lost weight without trying: No Eating poorly because of decreased appetite: No Nutrition Risks: No Nutritional Risk Patient : No (has IUD-irregular menses) FDLMP: 03/24/23 : No Poor oral hygiene: No (missing teeth) Meds Allergies Allergy/AdvReac Type Severity Reaction Status Date / Time sertraline [From ZOLOFT] Allergy Intermediate flushing/feels Verified 05/03/23 12:00 hot dust,pollen,mold Allergy Mild Itchy Eyes Uncoded 12/15/23 09:39 Home Medications Medication Instructions Recorded Confirmed Last Taken Type buspirone 10 mg tablet 10 mg PO BID 12/20/22 05/03/23 05/06/23 History diphenhydramine HCl 25 mg capsule 25 mg PO TID PRN Anxiety 12/20/22 05/03/23 Unknown History (Banophen) fexofenadine 180 mg tablet 180 mg PO DAILY 12/20/22 05/03/23 05/06/23 History topiramate 50 mg capsule,extended 50 mg PO BID 12/20/22 05/03/23 05/06/23 History release 24 hr riboflavin (vitamin B2) 400 mg 400 mg PO DAILY 01/18/23 05/03/23 05/06/23 History tablet bupropion HCl 300 mg 24 hr tablet, 300 mg PO QAM 02/22/23 05/03/23 05/06/23 History extended release (Wellbutrin XL) fluticasone propionate 110 2 puff inhalation BID 05/03/23 05/03/23 05/07/23 History mcg/actuation HFA aerosol inhaler Exam Height,Weight and Vital Signs: Height 5 ft 1 in Weight 75.75 kg Pertinent Lab Results Pertinent Lab Results: Laboratory Tests 04/29/23 10:40 Blood Type A Positive Antibody Screen NEGATIVE Laboratory Tests 04/29/23 10:43 WBC 6.1 Hgb 12.8 Hct 39.8 Plt Count 302 Sodium 141 Potassium 4.4 D Chloride 111 H Carbon Dioxide 23 BUN 24 H Creatinine 1.13 Narrative Narrative: EKG 12/2022 Vent. Rate : 073 BPM Atrial Rate : 073 BPM P-R Int : 166 ms QRS Dur : 084 ms QT Int : 390 ms P-R-T Axes : 044 009 013 degrees QTc Int : 429 ms Normal sinus rhythm Normal ECG No previous ECGs available Assessment and Plan Assessment Anesthesia Assessment: Chart Reviewed Documented by User: Eduardo Menendez MD 05/07/23 12:40 [facility] Past Medical History Medical History Asthma DJD (degenerative joint disease) Migraines GERD (gastroesophageal reflux disease) Anxiety Depression Hyperlipidemia Family History Family History Mother Arthritis Osteoarthritis High cholesterol Hypertension Diabetes Heart problem Father Liver problem Diabetes Hypertension High cholesterol Family history of problems with anesthesia: No Surgical History Surgical History Hx of tubal ligation Hx of cholecystectomy History of Problems with Anesthesia: No Social History Social History Are you a primary critical care registered nurse to a significant other at home: No Do you presently have visiting nurse or other home services: No Alcohol intake: never Patient Tobacco Use Status: Former Tobacco user Quit Date: age 36 Tobacco use type: Cigarette Use of substances other than those prescribed or required for medical reasons: No Have you been hit, kicked, punched, or otherwise hurt by someone within the past year? If so, by whom?: No Are you DNR?: No Advance Directives: No Advance Directives Information Provided: No Advance Directives on File: No Recently lost weight without trying: No Eating poorly because of decreased appetite: No Nutrition Risks: No Nutritional Risk Patient : No (has IUD-irregular menses) FDLMP: 03/24/23 : No Poor oral hygiene: No (missing teeth) Meds Allergies Allergy/AdvReac Type Severity Reaction Status Date / Time sertraline [From ZOLOFT] Allergy Intermediate flushing/feels Verified 05/03/23 12:00 hot dust,pollen,mold Allergy Mild Itchy Eyes Uncoded 05/03/23 09:39 Home Medications Medication Instructions Recorded Confirmed Last Taken Type buspirone 10 mg tablet 10 mg PO BID 12/20/22 05/03/23 05/06/23 History diphenhydramine HCl 25 mg capsule 25 mg PO TID PRN Anxiety 12/20/22 05/03/23 Unknown History (Banophen) fexofenadine 180 mg tablet 180 mg PO DAILY 12/20/22 05/03/23 05/06/23 History topiramate 50 mg capsule,extended 50 mg PO BID 12/20/22 05/03/23 05/06/23 History release 24 hr riboflavin (vitamin B2) 400 mg 400 mg PO DAILY 01/18/23 05/03/23 05/06/23 History tablet bupropion HCl 300 mg 24 hr tablet, 300 mg PO QAM 02/22/23 05/03/23 05/06/23 History extended release (Wellbutrin XL) fluticasone propionate 110 2 puff inhalation BID 05/03/23 05/03/23 05/07/23 History mcg/actuation HFA aerosol inhaler Exam Airway Mallampati Class: III TM Dist: >3cm Neck ROM: Full Loose/Missing/Broken Teeth: Yes Heart: rrr+[id number] Lungs: cta b/l Assessment and Plan Assessment Anesthesia Assessment: Anesthesia Plan Discussed Final Anesthetic Review Family History of Problems with Anesthesia: No History of Problems with Anesthesia: No NPO: Yes ASA Class: III Final Preanesthetic Review: No Changes in Pt Med Stat, Meds/Allgs Chart Reviewed, Consent Obtained/Reviewed and Anes Risks/Benef Reviewed Patient Risk: Intermediate Procedure Risk: Intermediate Assessment/Block/Sedation in SS: Assess/Block/Sedation-SS Anesthetic Plan Anesthetic Plan: GA and Agree w/ Assess. and Plan Disposition: Standard PACU
[2023-05-07] VITALS (13 sets, daily range): BP systolic 100–152; BP diastolic 57–86; PULSE 58–77; RESP 11–18; TEMP 36.1–37; O2SAT 93–100; BMI 33.1
--- NOTE | 2023-05-07 10:56 | PM.OP ---
Brief Operative Note Date of Service: 05/07/23 Pre-op diagnosis: Severe obesity with comorbidities (see below) Post-op diagnosis: same (& abdominal adhesions) Procedure: INITIAL PATIENT BMI ON PRESENTATION AT OUR OFFICE: 36.7 kg/m2 LAST BMI BEFORE SURGERY: 32.1 kg/m2 COMORBIDITIES: GERD, hyperlipidemia, DJD, depression, anxiety, migraines, liver fibrosis, liver steatosis ?The patient presented to the Weight Management Program with significant obesity that was negatively impacting the patient's comorbidities as listed above.? The program is a phased program with a special focus on preoperative medical weight management to promote substantial weight loss and prepare the patients for the second phase of the program: bariatric surgery. The patient participated in an intensive weekly lifestyle ?intervention and exercise program during which the patient ?has lost between the initial office visit and the last preoperative visit 27.3lbs, or 14% of initial actual body weight. It was deemed appropriate for the patient to now have bariatric surgery. In light of the current Covid-19 pandemic and the well documented strong association of obesity and increased risk of worse outcomes if infected with Covid-19 (REFERENCES:https://pubmed.ncbi.nlm.nih.gov/39847045/,?https://pubmed.ncbi.nlm.nih.gov/41731003/), any delay in undergoing bariatric surgery may lead to the patient's worsening health condition and increased?risk of more severe Covid-19 disease if infected. In addition a recent?study from [facility] published in [facility] on 05/15/2021 ([email or web address]) found that, among patients with obesity, substantial weight loss achieved with surgery was associated with improved outcomes of COVID-19 infection. The findings suggest that obesity can be a modifiable risk factor for the severity of COVID-19 infection. In addition, the patient met the BMI-criteria for bariatric surgery based on the BMI on initial presentation. The patient should not be penalized for achieving such weight loss because ?it is not sustainable long-term without surgical intervention and it was achieved in preparation for bariatric surgery ?under my direction and based on my published research ([email or web address] and?https://www.soard.org/article/[email or web address](18)17922-X/pdf) ?that a 10% preoperative weight loss improves long-term weight loss after surgery and reduces perioperative complications.? Insurance carriers such as [facility] have endorsed my recommendations ?and have included in their policies criteria to include a 10% preoperative weight loss requirement. PROCEDURE: Esophago-gastroscopy, laparoscopic lysis of adhesions, laparoscopic sleeve gastrectomy and laparoscopic gastropexy INDICATIONS: This is a 47 year-old female who was electively scheduled for laparoscopic, possibly open sleeve gastrectomy. The risks and complications of the procedure were discussed with the patient in advance, particularly the possibility of ; pulmonary embolism; staple line leak; bleeding; GERD; cardiac, pulmonary, or renal complications; as well as long-term problems such as insufficient weight loss, vitamin deficiency, strictures, or ulcers. The patient understood all the risks, and was in agreement to proceed with surgery. DESCRIPTION OF PROCEDURE: After informed consent was obtained from the patient, the patient was given preoperative antibiotics, and was transferred to the operating room. After successful induction of general anesthesia, pneumatic compression devices were placed on both lower extremities. An upper endoscopy was performed next. The oropharynx and esophagus appeared to be within normal limits. There was no diaphragmatic hernia present consistent with the findings of the preoperative upper GI. The stomach was entered. Then after all fluid and air were suctioned and the stomach was fully decompressed, the scope was withdrawn and secured in the mid esophagus. The patient was then prepped and draped in the usual sterile manner, and abdominal access was established at the left upper quadrant with the Veress needle due to a history of open cholecystectomy incision. Once the abdomen is insufflated to a pressure 15mmHg two additional 5 mm Versi step ports were placed at the left flank and to the left and superior to the umbilicus. The area where the needle was placed was inspected and there was no injury. It was replaced with another 5 mm Versi-step port. There were adhesions in the abdomen from previous open cholecystectomy involving the omentum and the anterior abdominal wall. Those were lysed completely with the ultrasonic device. Once the adhesions were lysed, a 12 mm blunt port was placed at the right upper quadrant with the Issac technique. Under direct visualization, additional ports were placed, specifically one 5 mm Versi-step port to the left upper quadrant, and a 5 mm Versi-Step port to the right upper quadrant. 1% lidocaine plain was used to infiltrate all port sites as well as all fascia defects. Following that, the patient was placed in a steep reverse Trendelenburg position. An additional 5 mm port was placed to the right flank for the Mediflex retractor that was used to retract the left lobe of the liver. The gastro-esophageal fat pad was opened with the ultrasonic device (Thunderbeat, Olympus) and the anterior esophagus and hiatus were exposed. The angle of His was opened with the ultrasonic device the fundus of the stomach from any diaphragmatic and splenic attachments. I then opened the gastrocolic ligament between the transverse colon and the greater curvature of the stomach with the ultrasonic device to enter the lesser sac and facilitate the ligation of the short gastric vessels. I started at a mid-point along the greater curvature and using the Thunderbeat, all short gastric vessels were divided all the way to the angle of His until the left yobany was completely dissected at its entirety. I then divided the gastro-colic ligament distally to a distance of about 3-4 cm proximal to the pylorus. There were extensive congenital adhesions between the pancreas and posterior gastric wall. Those were lysed completely with the ultrasonic device. Adhesiolysis took approximately 45 min to complete. The stomach was then divided transversely with one Endo PALMIRA-45 purple and four PALMIRA-60 articulating purple loads using the SIGNIA stapler and loads. Every effort was made that the gastric sleeve had a tubular shape and an even caliber throughout. Once the sleeve resection was completed, the staple line of the gastric sleeve was reinforced with Hemoclips. The resected stomach was retrieved without difficulty from the Issac port. A gastropexy was then performed in order to prevent postoperative GERD and partial gastric volvulus. Several interrupted 2.0 Surgidac sutures were placed between the sleeve's staple line and the previously divided greater omentum and gastro-colic ligament using the Endo-Stitch device. ?An upper endoscopy was performed. There was no narrowing at the GE junction. The scope was easily advanced all the way to the pylorus which was clearly visualized. There was no narrowing anywhere and the sleeve's caliber was even throughout. The sleeve's staple line was inspected and there was no evidence of ischemia, bleeding or dehiscence. At that point the gastroscope was withdrawn from the patient?s mouth while we were decompressing the bowel and the stomach from any remaining air. I looked into the lesser sac to see how the sleeve was situating and it was situating well. There was no bleeding from the staple line, spleen, or short gastric vessels. The Mediflex retractor was removed, and the undersurface of the liver was inspected and there was no bleeding. The patient was placed in supine position. I closed the fascial defect of the 12 mm port site with a figure of eight #1 Polysorb suture. Then 30cc Ropivacaine plain with 10 mg of Dexamethasone were used to infiltrate the fascial closure as well as all skin incisions. At this point, the abdomen was deflated, all ports were removed under direct vision, and no bleeding was noted from any of the port sites. The skin incisions were irrigated with saline and were closed with 4-0 absorbable monofilament sutures. Steri-Strips and OpSites were used to cover all incisions. The patient was extubated and was transferred in stable condition to the recovery room for further care. I was present and performed all tejeda parts of the procedure. Ms. Gomez was the porcelain buildup assistant. There were no residents to assist with this case. Ronald Fisher MD, PhD, FACS Surgeon: Kaiden Fisher MD Anesthesia: GETA, local and other (TAP block) Was an Commercial Loan Closer used for this Procedure?: No Commercial Loan Closer: Honey Gomez Estimated blood loss (mL): 10 IV fluids (mL): 3,000 Urine output (mL): 0 (No Bee to record output) Pathology: other (Stomach) Condition: stable Disposition: PACU
--- NOTE | 2023-05-07 10:59 | P.PNGS_ITS ---
Subjective Subjective Date of Service: 05/08/23 Interval history: Feels well. Mild incisional pain. She is tolerating phase 1 bariatric diet Physical Exam 2 Vital Signs: Vital Signs: Last Vital Signs Temp 97.8 F 05/07/23 10:48 Pulse 69 05/07/23 10:48 Resp 16 05/07/23 10:48 BP 119/67 05/07/23 10:48 Pulse Ox 98 05/07/23 10:48 O2 Del Method Room Air 05/07/23 10:48 BMI result Body Mass Index 31.6 GI: Inspection: Yes normal to inspection, Yes incision (clean, dry and intact) and Yes obesity Palpation (GI): Soft to palpation Extrem: Right lower extremity: normal to inspection (no calf tenderness) L eft lower extremity: normal to inspection (no calf tenderness) Objective Data Active Medications Albuterol Sulfate (Albuterol Sulfate (0.083%) 2.5 Mg/3 Ml Vial.Neb) 2.5 mg INHALE ONCE PRN PRN Reason: Shortness of Breath/Wheezing Lactated Ringer's (Lr) 1,000 mls @ 100 mls/hr IVCONT .Q10H YOSHI Lactated Ringer's (Lr) 1,000 mls @ 999 mls/hr IV .Q1H1M YOSHI Stop: 05/07/23 12:30 Labs 05/08/23 06:14 05/08/23 06:14 Procedures Date of Service Date of Service: 05/08/23 Progress Note: A&P Assessment and plan (1) Obesity (BMI 30-39.9): Status: Acute Assessment and Plan: s/p laparoscopic sleeve gastrectomy, lysis of adhesions and gastropexy Doing well Will check am labs and if OK the patient will be discharged home (2) BMI 32.0-32.9,adult: Status: Acute (3) Hyperlipidemia: Status: Acute (4) Depression: Status: Acute (5) Anxiety: Status: Acute (6) Migraines: Status: Acute (7) DJD (degenerative joint disease): Status: Acute (8) Steatosis, liver: Status: Acute (9) Liver fibrosis: Status: Acute (10) S/P laparoscopic sleeve gastrectomy: Status: Acute (11) Intra-abdominal adhesions: Status: Acute Time Spent With Patient Time: Total time managing care of this patient today ____ minutes. Quality Stroke Does the patient have a stroke diagnosis?: No VTE Prior VTE?: No VTE Risk Level:: Surgical - moderate VTE Device Contraindication: N/A - Device Ordered VTE Drug Contraindication: Treatment Not Indicated
[2023-05-07] MEDS: Lactated Ringers 1,000 ML 999 ML IV (11:02)
[2023-05-07] MEDS: Aprepitant 32 MG/4.4 ML VIAL IVPUSH (11:06)
--- NOTE | 2023-05-07 15:30 | PM.DS ---
DS: Providers Provider Date of Service: 05/08/23 Primary care physician: Unknown Physician DS: Diagnosis Discharge Diagnosis (1) Obesity (BMI 30-39.9): Status: Acute (2) BMI 32.0-32.9,adult: Status: Acute (3) Hyperlipidemia: Status: Acute (4) Depression: Status: Acute (5) Anxiety: Status: Acute (6) Migraines: Status: Acute (7) DJD (degenerative joint disease): Status: Acute (8) Steatosis, liver: Status: Acute (9) Liver fibrosis: Status: Acute DS: Summary Hospital Course Hospital Course: ADMITTING DIAGNOSIS: morbid obesity, HLD, migraines, liver steatosis DISCHARGE DIAGNOSIS: same, s/p laparoscopic sleeve gastrectomy PAST SURGICAL HISTORY: open cholecystectomy, tubal ligation PROCEDURE: upper endoscopy, laparoscopic sleeve gastrectomy DISCHARGE SUMMARY: History of Present Illness: The patient is a 47 year-old woman with a BMI of 36.8 kg/m2 and associated co-morbidities as described above. The patient had extensive work-up, lost 27.3 lbs preoperatively and was electively scheduled for laparoscopic, possible open sleeve gastrectomy and gastropexy. Risks and complications of the surgery were discussed with the patient in advance, particularly the possibility of , pulmonary embolism, anastomotic leak, bleeding, bowel injury, GERD, cardiac, renal or pulmonary complications. The patient understood all the risks and was in agreement with the surgical plan. Hospital Course: The patient underwent an uneventful laparoscopic sleeve gastrectomy with gastropexy on the day of admission. Postoperatively, the patient was transferred to the surgical floor. The patient received IV Acetaminophen and IV dilaudid for pain control. Patient was started on bariatric phase 1 diet POD #0. On postoperative day one, the patient was feeling well without nausea, vomiting, fevers, or tachycardia. The patient had some mild incisional pain and the abdomen was soft. On the morning of postoperative day one, the patient was continued on 1 ounce of water or ice every half hour. During the day, the patient did fairly well, having some incisional pain, but able to ambulate adequately and to tolerate liquids well. Since the patient is doing well, we decided that the patient was ready to be discharged. The patient was given instructions to follow-up with me next week and to call my office for any fever over 101, persistent abdominal pain, nausea, vomiting, GERD, symptoms of DVT such as calf tenderness, or leg swelling, or pulmonary embolism such as chest pain or shortness of breath. The patient was also instructed to drink 40-60 ounces of liquids per day using the 1-ounce cups. The patient had been given prescriptions for Tylenol for pain, Zofran prn for nausea, and pantoprazole and carafate previously. The patient was encouraged to ambulate and use the incentive spirometer. The patient was allowed to shower, but no baths, and encouraged to stay active at home. All of these instructions were given to the patient personally. All questions were answered and the patient understood all instructions, the instructions were also given to the patient in print. Time Attestation Discharge coordination time: Less than 30 minutes Quality: Safe Use of Opioids Does Pt have an Active Cancer Diagnosis on the Problem List?: No Quality: Stroke Does the patient have a stroke diagnosis?: No Physical Exam Vital Signs: Vital Signs: Last Vital Signs Temp 97.8 F 05/07/23 10:48 Pulse 69 05/07/23 10:48 Resp 16 05/07/23 10:48 BP 119/67 05/07/23 10:48 Pulse Ox 98 05/07/23 10:48 O2 Del Method Room Air 05/07/23 10:48 BMI result Body Mass Index 31.6 DS: Data Data Completed and Pending Pending studies at discharge: Pending at discharge 05/07/23 14:36 Surgical [PTH] Routine Discharge Plan Discharge Patient Disposition: Home, Self-Care Referrals: Physician,Unknown J [Primary Care Provider] - 1 Week Discharge Medications: Continued pantoprazole 40 mg tablet,delayed release (DR/EC) 40 mg PO DAILY Qty: 30 2RF sucralfate 100 mg/mL suspension 10 ml PO BID Qty: 400 2RF ondansetron 4 mg tablet,disintegrating 4 mg PO Q12H Qty: 20 0RF Rx Instructions: Only take one every 12 hours as needed if you have nausea docusate sodium [Colace] 100 mg capsule 100 mg PO DAILY Qty: 30 2RF fluticasone propionate 110 mcg/actuation HFA aerosol inhaler 2 puff INHALATION BID melatonin 3 mg tablet 3 mg PO BEDTIME acetaminophen 500 mg tablet 1,000 mg PO Q8H PRN (Reason: pain) fluticasone propionate 50 mcg/actuation spray,suspension 1 spray intranasal DAILY topiramate 50 mg tablet 50 mg PO BID buspirone 10 mg Tablet 20 mg PO DAILY@1800 Rx Instructions: 10mg in the morning and 20mg in the evening diphenhydramine HCl [Banophen] 25 mg capsule 25 mg PO TID PRN (Reason: Anxiety) buspirone 10 mg tablet 10 mg PO QAM Rx Instructions: 10mg in the morning and 20mg in the evening fexofenadine 180 mg tablet 180 mg PO BID bupropion HCl [Wellbutrin XL] 300 mg tablet extended release 24 hr 300 mg PO QAM Discontinued cholecalciferol (vitamin D3) 125 mcg (5,000 unit) capsule 125 mcg PO DAILY 90 Days Qty: 90 0RF riboflavin (vitamin B2) 400 mg tablet 400 mg PO DAILY Discharge Orders: Discharge Order (Routine); Ordered 05/08/23 Ordered By: Kaiden Fisher Activity on Discharge: No heavy lifting Activity Restrictions/Additional Instructions: No tub baths, sex or returning to work until discussed at first post op appointment. No exercise, alcohol, tobacco or illegal drug use. Continue to use incentive spirometer hourly while awake. Walk in home for 5- 10 minutes every 2 hours during the first week. Continue phase 1 diet today and start phase 2 diet tomorrow morning. Follow all instructions in the bariatric handbook and call with any questions. 1. Please call your doctor or come back to the emergency room should any new symptoms arise. 2. You will receive a courtesy call from [facility] 24-48 hours after discharge. 3. Activity: abstain from alcohol, practice limited stair climbing, no bending, no driving, no exercise, no illicit substances, no lifting, no sex, no tub bath, no work. 4. Diet: continue as discussed with bariatric team.. 5. Dressing Change/Wound Care: Do not change or remove surgical dressings unless they are wet or soiled. 6. Call your doctor if: - Your temperature exceeds 101.5 F - You experience excessive pain or swelling - You have an unexpected reaction to medication - You have excessive bleeding - You experience continued vomiting/nausea - Your incision begins to separate - Your incision shows signs of infection such as increased redness, swelling, excessive pain, heat, or drainage (light blood or clear fluid is normal) 7. General instructions: No lifting greater than 5 lbs for 1 week and not more than 20lbs the next 3?weeks. No driving until seen at the office in 5-7 days after surgery. If you do not move your bowels in the next 2 days, please tell?Dr. Fisher. Please walk around your home every hour or two to prevent blood clots from forming in your legs. You do not need to wake from sleeping to walk. Please sleep in a bed or couch to prevent kinking at the hips and knees. Please take your incentive spirometer (your lung director utilization management) home with you and use it for the next few days to prevent pneumonia. You may shower, no hot tubs, baths or swimming pools.?Please follow the post op diet instructions you are?given by Dr Shikha kelley? and text me daily at 5-6pm for an update.?If you have any issues or concerns or questions please communicate this to him via text.? The Celebrate shakes have all of the bariatric vitamins you need if you consume these shakes. If you are drinking other protein shakes, you will need to purchase the Celebrate multivitamins and calcium that are available in the hospital gift shop on the first floor of the [facility].??Do not take anything without first discussing with Dr Fisher. Please make sure you are consuming at least 40 ounces of fluids per day starting the?day AFTER your discharge from the hospital. Always drink 1-2 ml per minute using the 5ml?syringe. If you drink faster you may experience?bloating,?gas pain, burping, nausea or heartburn. In that case please slow down your pace and use the syringe to?understand better the?proper?pace and volume of drinking. Do not hesitate to contact the office with any questions at . The patient's medical history has been reviewed and they are considered low risk for post op DVT and therefore DVT prophylaxis is not considered necessary. Travel after surgery was reviewed. The patient has not disclosed any travel plans during the first 30 days after surgery and they have been advised that within the first 30 days after surgery any bus, plane, train or car travel over 2 hours in duration is contraindicated due to the possibility of developing blood clots from immobility. Any travel, needs to include periods of ambulation of 10 minutes in duration every 2 hours. The patient was instructed to discuss any plans for travel during this period with their bariatric surgeon. Discharge Date/Time: 05/08/23 09:57
[2023-05-07 16:05] LABS: Hematocrit 33.8 % (37.0-47.0); Hemoglobin 11.1 g/dl (12.0-16.0)
[2023-05-07 16:17] LABS: Anion Gap 13 (12-20); Blood Urea Nitrogen 17 mg/dL (9-16); Carbon Dioxide 21 mmol/L (22-29); Chloride 109 mmol/L (96-108); Creatinine Clr Calc Pharmacy 76.1; Estimated Glomerular Filt Rate > 60; Glucose Random 115 mg/dL (60-115); Potassium 4.4 mmol/L (3.3-5.1); Sodium 139 mmol/L (135-145)
[2023-05-07] MEDS: Lactated Ringers 1,000 ML 100 ML IVCONT (18:20)
[2023-05-07] MEDS: ceFAZolin Sodium/Dextrose,Iso 2 GM/50 ML PIGGYBACK IV (19:22)
--- NOTE | 2023-05-07 19:59 | PHA.MEDREC ---
Pharmacy Consult ? Medication Reconciliation Pharmacy has completed the medication reconciliation. Spoke to patient and confirmed medication list.
[2023-05-07] MEDS: Famotidine/PF 20 MG/2 ML VIAL IVPUSH (20:45)
[2023-05-07] MEDS: Acetaminophen 1,000 MG/100 ML PIGGYBACK 16.7 MG IV (20:45)
[2023-05-07] MEDS: 0.9 % Sodium Chloride Flush 3 ML SYRINGE IVFLUSH (20:46)
[2023-05-08] MEDS: HYDROmorphone HCl 0.5 MG/0.5 ML SYRINGE 0.25 MG IVPUSH (01:05)
[2023-05-08] MEDS: ondansetron HCL 4 MG/2 ML VIAL IVPUSH (01:09)
[2023-05-08] MEDS: Acetaminophen 1,000 MG/100 ML PIGGYBACK 16.7 MG IV (02:30)
[2023-05-08 03:56] VITALS: BP 111/61; PULSE 58; RESP 16; TEMP 36; O2SAT 95
[2023-05-08] MEDS: Lactated Ringers 1,000 ML 100 ML IVCONT (03:58)
[2023-05-08 06:30] LABS: MANUAL DIFF FLAG NO
[2023-05-08 06:35] LABS: Hematocrit 34.3 % (37.0-47.0); Hemoglobin 11.3 g/dl (12.0-16.0); Imm Gran Abs Auto 0.05 X10*3/uL (0.00-0.03); Imm Gran Pct Auto 0.6 % (0.0-0.4); Lymphocytes Absolute Auto 0.7 X10*3/uL (1.2-4.9); Lymphocytes Percent Auto 7.6 % (20-40); Mean Corpuscular HGB Conc 32.9 g/dl (31.0-35.0); Mean Corpuscular Hemoglobin 28.6 pg (27.0-33.0); Mean Corpuscular Volume 86.8 fL (80.0-98.0); Mean Platelet Volume 11.2 fL (9.4-12.3); Monocytes Absolute Auto 0.2 X10*3/uL (0.1-1.2); Neutrophils Absolute Auto 8.1 x10*3/uL (2.0-8.3); Neutrophils Percent Auto 89.8 % (45-73); Platelet Count 269 X10*3/uL (160-400); Red Blood Count 3.95 X10*6/uL (4.20-5.50); Red Cell Distribution Width 13.5 % (11.0-16.0)
[2023-05-08 06:51] LABS: Anion Gap 15 (12-20); Blood Urea Nitrogen 15 mg/dL (9-16); Calcium 9.5 mg/dL (8.4-10.2); Carbon Dioxide 20 mmol/L (22-29); Chloride 109 mmol/L (96-108); Creatinine Clr Calc Pharmacy 74.5; Estimated Glomerular Filt Rate > 60; Glucose Random 132 mg/dL (60-115); Potassium 4.6 mmol/L (3.3-5.1); Sodium 139 mmol/L (135-145)
[2023-05-08 07:16] VITALS: BP 117/63; PULSE 53; RESP 16; TEMP 36.5; O2SAT 95
[2023-05-08] MEDS: Famotidine/PF 20 MG/2 ML VIAL IVPUSH (07:58)
[2023-05-08] MEDS: 0.9 % Sodium Chloride Flush 3 ML SYRINGE IVFLUSH (07:58)
--- NOTE | 2023-05-08 09:14 | MHC.CM.PN ---
Female 47 S/P Gastic sleeve surgery. She lives with her spouse. She is independent with all functional mobility. She declined the offer to document a HCP. DP home with Family support and transport. PCP Hazel James.
--- NOTE | 2023-05-08 09:46 | HO.POSTANES ---
Post Anesthesia Evaluation Post Anesthesia Evaluation Date of Service: 05/08/23 Vital Signs: Vital Signs Temp Pulse Resp BP Pulse Ox O2 Del Method 05/08/23 07:16 97.7 F 53 16 117/63 95 Room Air 05/08/23 03:56 96.8 F 58 16 111/61 95 Room Air 05/07/23 23:57 97.3 F 62 14 117/57 L 93 Room Air Anesthesia: General Endotracheal-GETA Mental Status: Awake Pain Control: Satisfactory Nausea/Vomiting: None Hydration: Adequate Anesthesia-Related Issues: No Anes. Related Issues
--- NOTE | 2023-05-08 09:48 | PC.NURSE ---
Pt understands discharge instructions, no questions at this time. States she will follow up with PCP and surgical team. Pt sig. other also understands d/c instructions.
== END 2023-05-08 09:57 | disposition home or self-care (01) ==
LOC: HO.SSS 17:39 → HO.S3 17:52
PROVIDERS: Physician Assistant; Absent Provider Surgery; PCP Student in an Organized Health Care Education/Training Program; Visit Provider Surgery
PROC: (CPT 43845; principal; 2023-05-07 12:50)
DX: E66.01 Morbid (severe) obesity due to excess calories (principal); Z68.32 Body mass index [BMI] 32.0-32.9, adult; K21.9 Gastro-esophageal reflux disease without esophagitis; K66.0 Peritoneal adhesions (postprocedural) (postinfection); Q43.3 Congenital malformations of intestinal fixation; K76.0 Fatty (change of) liver, not elsewhere classified; K74.00 Hepatic fibrosis, unspecified; E78.5 Hyperlipidemia, unspecified; M19.90 Unspecified osteoarthritis, unspecified site; G43.909 Migraine, unspecified, not intractable, without status migrainosus; F32.A Depression, unspecified; F41.9 Anxiety disorder, unspecified; Z90.49 Acquired absence of other specified parts of digestive tract; Z98.51 Tubal ligation status; Z79.899 Other long term (current) drug therapy; Z88.8 Allergy status to other drugs, medicaments and biological substances
CPT/HCPCS: 43775; 43659; 49329; 36415; 80048; 85014; 85018; 85025; 86850; 86900; 86901; 88304; 88305; 88307; 88342; 99024; A4649; C9145; J0131; J0690; J1100; J1170; J2250; J2405; J2704; J2795; J3010; J7120

== ENCOUNTER → 2023-05-07 10:22 | Outpatient (BNV) | payer OTHER, SELFPAY | PROVIDERS: Absent Provider Surgery; Visit Provider Surgery | DX: E66.9 Obesity, unspecified (principal); Z68.32 Body mass index [BMI] 32.0-32.9, adult; Q43.3 Congenital malformations of intestinal fixation | CPT/HCPCS: 43659; 43775; 99024 ==

== ENCOUNTER 2023-05-14 12:37 | Outpatient (AMB) | payer OTHER, SELFPAY ==
--- NOTE | 2023-05-14 13:01 | A.OFFVIS_ITS ---
Intake VS Expanded 05/14/23 13:11 BP 120/77 Blood Pressure Location Rt brachial Blood Pressure Position Sitting Pulse 96 Pulse Source Pulse Oximeter Temp 97.4 F Temperature Source Temporal Artery Scan Pulse Oximetry 97 Oxygen Delivery Method Room Air Height 5 ft 1 in Weight 153 lb 9.6 oz BMI 29.0 Body Fat % 40.1 Body Fat Mass 61.6 Fat Free Mass 92.0 Visceral Fat Rating 8.0 Body Water % 42.7 Body Water Mass 65.4 Muscle Mass/Score 87.4 Basal Metabolic Rate/Score 1,289 Intake Visit Reasons: (OV) PO LSG 05/07/23 Allergies sertraline [From ZOLOFT] Allergy (Intermediate, Verified 05/14/23 13:04) flushing/feels hot dust,pollen,mold Allergy (Mild, Uncoded 05/03/23 09:39) Itchy Eyes HPI HPI Comments History of Present Illness Details 47-year-old female, 7 days post sleeve g astrectomy performed on 05/07/[address] Fisher She initially did well with the celebrate 4 in 1 however became intolerant with nausea and was subsequently switched to Premier protein. She is now having the same issue with the Premier protein and will discuss this with Dr. Fisher. She is taking in approximately 40 oz of fluids. She has moved her bowels and is overall doing fairly well. [facility] Medical History Asthma DJD (degenerative joint disease) Migraines GERD (gastroesophageal reflux disease) Anxiety Depression Hyperlipidemia Surgical History Hx of tubal ligation Hx of cholecystectomy Family History Mother Arthritis Osteoarthritis High cholesterol Hypertension Diabetes Heart problem Father Liver problem Diabetes Hypertension High cholesterol Social History Household Members: Family Housing: Apartment Are you a primary property caretaker to a significant other at home: No Do you presently have visiting nurse or other home services: No Alcohol intake: never Patient Tobacco Use Status: Former Tobacco user Quit Date: age 36 Tobacco use type: Cigarette service: No Physical Exam GI Inspection: Yes incision (Clean, dry, intact.) Assessment & Plan Assessment & Plan (1) S/P laparoscopic sleeve gastrectomy: Code(s): Z98.84 - Bariatric surgery status Plan: POD 7 s/p LSG on 05/07/[address] Fisher Weight loss prior to surgery was 28.3 pounds or 14.5 % TBWL. Original weight on 12/20/2022 was in 194.8 pounds and op weight was 166.5 pounds. Be sure to text Dr Fisher exactly 1 week after surgery your weight from your home scale so he can adjust your meal plan. Continue meal plan until f/u w Jain in 2 weeks May shower, no submersion in bath for another week Continue abdominal binder with activity and exercise for the next 2 weeks. Exercise prior to surgery was treadmill, may resume No abdominal exercises for 6 weeks post operatively Will be emailed link to post op video for review Reminded of the pace of drinking, 2 mL per minute, 1 oz/15 min. She will discuss with Dr. Fisher her distaste for the Premier protein powdered shake. Coding Level of Care Code Global (30394) Diagnoses S/P laparoscopic sleeve gastrectomy Z98.84
[2023-05-14 13:11] VITALS: BP 120/77; PULSE 96; TEMP 36.3; O2SAT 97; BMI 29.0
== END 2023-05-14 13:21 | disposition home or self-care (01) ==
PROVIDERS: Visit Provider Physician Assistant Surgical
DX: E66.3 Overweight (principal); Z68.29 Body mass index [BMI] 29.0-29.9, adult; Z90.3 Acquired absence of stomach [part of]; Z98.84 Bariatric surgery status
CPT/HCPCS: 99024

== ENCOUNTER → 2023-05-14 12:37 | Outpatient (BNVA) | payer OTHER, SELFPAY | PROVIDERS: Visit Provider Physician Assistant Surgical | DX: Z98.84 Bariatric surgery status (principal) | CPT/HCPCS: 99212 ==

== ENCOUNTER 2023-05-28 14:33 | Outpatient (AMB) | payer OTHER, SELFPAY ==
--- NOTE | 2023-05-28 14:17 | A.OFFVIS_ITS ---
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 Fisher Celebrate 4in1 made her nauseous - spoke with Dr. Fisher about this and now is doing fairlife and Premier shakes but also don't sit well once they hit my stomach it doesn't feel good - normally doesn't drink any milk based shakes 2 fairlife shakes + 1/3 of a shake Hydration: 1 bottle Dietary counseling reduction Diagnosis Nutrition problem #1 overweight/obesity As related to (etiology) #1 excess energy intake and physical inactivity As evidenced by (sign/symptom) #1 high BMI Monitoring/Goals Nutrition problem monitoring total energy intake, level of knowledge/skill, total PRO intake, total CHO intake and weight Learning/Education Readiness to learn good Stages of change action Most Recent Diabetes Results: Cholesterol 218 mg/dL (<200) H 04/29/23 HDL Cholesterol 37 mg/dL (>40) L 04/29/23 Triglycerides 154 mg/dL (<150) H 04/29/23 Creatinine 0.90 mg/dL (0.5-1.4) 05/08/23 Blood Urea Nitrogen 15 mg/dL (9-16) 05/08/23 Sodium 139 mmol/L (135-145) 05/08/23 Potassium 4.6 mmol/L (3.3-5.1) 05/08/23 Chloride 109 mmol/L (96-108) H 05/08/23 Carbon Dioxide 20 mmol/L (22-29) L 05/08/23 Calcium 9.5 mg/dL (8.4-10.2) 05/08/23 AST 22 U/L (5-31) 04/29/23 ALT 41 U/L (0-31) H 04/29/23 Total Protein 8.0 g/dL (6.5-8.0) 04/29/23 Albumin 4.3 g/dL (3.5-5.0) 04/29/23 PFSH Medical History Asthma DJD (degenerative joint disease) Migraines GERD (gastroesophageal reflux disease) Anxiety Depression Hyperlipidemia Surgical History Hx of tubal ligation Hx of cholecystectomy Family History Mother Arthritis Osteoarthritis High cholesterol Hypertension Diabetes Heart problem Father Liver problem Diabetes Hypertension High cholesterol Social History Household Members: Family Housing: Apartment Are you a primary caregiver assisted living to a significant other at home: No Do you presently have visiting nurse or other home services: No Alcohol intake: never Patient Tobacco Use Status: Former Tobacco user Quit Date: age 36 Tobacco use type: Cigarette service: No Assessment & Plan Assessment & Plan (1) Overweight (BMI 25.0-29.9): Code(s): E66.3 - Overweight Plan recommend isopure infusions or other protein water. she will discuss with surgeon . she has a scheduled appt with [facility] Location of provider rendering services: practice address Location of patient: address on file Patient Identification confirmed using: Name, : Yes Telehealth method: voice only Patient verbally consented to treatment: Yes Patient verbally consented to billing insurance company: Yes Patient informed of any privacy concerns related to visit: Yes Minutes spent on Phone/Video with Pt.: 30 Coding Level of Care Code Nutr Indiv Subseq ([id number]) Diagnoses Overweight (BMI 25.0-29.9) E66.3 Time Spent (min) 20
[2023-05-28 15:07] VITALS: BMI 27.8
== END 2023-05-28 15:07 | disposition home or self-care (01) ==
LOC: HO.HBS 14:33
PROVIDERS: Visit Provider Dietitian, Registered
DX: E66.3 Overweight (principal)

== ENCOUNTER → 2023-05-28 14:33 | Outpatient (BNVA) | payer OTHER, SELFPAY | PROVIDERS: Visit Provider Dietitian, Registered | DX: E66.3 Overweight (principal); Z68.27 Body mass index [BMI] 27.0-27.9, adult; Z98.84 Bariatric surgery status | CPT/HCPCS: 97803 ==

== ENCOUNTER 2023-06-11 12:52 | Outpatient (AMB) | payer OTHER, SELFPAY ==
--- NOTE | 2023-06-11 10:36 | MHC.OFFVISWM ---
Intake Intake Visit Reasons: (TV) PO LSG 05/07/23 Allergies sertraline [From ZOLOFT] Allergy (Intermediate, Verified 05/14/23 13:04) flushing/feels hot dust,pollen,mold Allergy (Mild, Uncoded 05/03/23 09:39) Itchy Eyes HPI HPI Comments History of Present Illness Details This?a?47?yo female who is s/p LSG without hiatal hernia repair on?05/07/2023. Presents for one-month post op visit. Weight today is 145.4 pounds, with a BMI of 27.8. There has been a 49.4 pound weight loss,(initial weight 194.8 pounds) since starting the program on 12/20/2022 reflecting a 25.3 % total body weight loss and a weight loss of 21.1 pounds since surgery (operative weight 166.5 pounds) reflecting a 12.6 % TBWL since surgery. No complaints of nausea, emesis, abdominal pain or reflux. She reports she has had constipation, last BM 1 week, pos flatus. She has also has a spitting suture along the left midline incision Doesn't like the protein bar States she is tired of water and shakes and is not going to do isopure but will do protein 20 Weight loss prior to surgery was 28.3 pounds or 14.5 % TBWL. Original weight on 12/20/2022 was in 194.8 pounds and op weight was 166.5 pounds. Present meal plan includes: 8-10 am isopure 26 gm (1 scoop) in 8 oz water or Protein 20 water 11-1 another shake or protein water 2-5 ZP bar 7 pm 1 egg or 4 forks cottage cheese or slovak yogurt Drinking 32 oz water Exercise routine includes: walk treadmill at home, (none this week due to foot injury) 175 calories. Willing to join [facility] Medical History BMI 32.0-32.9,adult Asthma DJD (degenerative joint disease) Migraines GERD (gastroesophageal reflux disease) Anxiety Depression Hyperlipidemia Surgical History Hx of tubal ligation Hx of cholecystectomy Family History Mother Arthritis Osteoarthritis High cholesterol Hypertension Diabetes Heart problem Father Liver problem Diabetes Hypertension High cholesterol Social History Household Members: Family Housing: Apartment Are you a primary child care lead teacher to a significant other at home: No Do you presently have visiting nurse or other home services: No Alcohol intake: never Patient Tobacco Use Status: Former Tobacco user Quit Date: age 36 Tobacco use type: Cigarette service: No Assessment & Plan Assessment & Plan (1) S/P laparoscopic sleeve gastrectomy: Code(s): Z98.84 - Bariatric surgery status Plan: Change meal plan to two protein 20 drinks per day, and 2 small meals consisting of 4 forks of protein and 2 forks of cooked vegetables. Encouraged to join [employer] and increase exercise activity. I had the patient come into the office and clipped one spitting suture. No evidence of dehiscence. (2) Constipation: Code(s): K59.00 - Constipation, unspecified Plan: Add senna and p.r.n. Dulcolax Medications: New sennosides (senna) 17.2 mg (2 x 8.6 mg) PO BEDTIME 90 days 180 tabs 0RF bisacodyl (Dulcolax (bisacodyl)) 10 mg W[place] DAILY 12 ea 0RF Coding Level of Care Code Global (94264) Diagnoses S/P laparoscopic sleeve gastrectomy Z98.84 Constipation K59.00
== END 2023-06-11 12:55 | disposition home or self-care (01) ==
LOC: HO.HBS 12:52
PROVIDERS: Visit Provider Physician Assistant Surgical
DX: E66.3 Overweight (principal); Z68.27 Body mass index [BMI] 27.0-27.9, adult; Z90.3 Acquired absence of stomach [part of]; Z98.84 Bariatric surgery status
CPT/HCPCS: 99024

== ENCOUNTER → 2023-06-11 12:52 | Outpatient (BNVA) | payer OTHER, SELFPAY | PROVIDERS: Visit Provider Physician Assistant Surgical | DX: Z98.84 Bariatric surgery status (principal); K59.00 Constipation, unspecified | CPT/HCPCS: 99212 ==

== ENCOUNTER → 2023-07-01 11:30 | Outpatient (BNVA) | payer OTHER, SELFPAY | PROVIDERS: Visit Provider Physician Assistant Surgical | DX: Z98.84 Bariatric surgery status (principal) | CPT/HCPCS: 99212 ==

== ENCOUNTER 2023-07-29 09:11 | Outpatient (AMB) | payer OTHER, SELFPAY ==
--- NOTE | 2023-07-29 09:16 | A.OFFVIS_ITS ---
Intake VS Expanded 07/29/23 09:31 BP 118/74 Blood Pressure Location Rt brachial Blood Pressure Position Sitting Pulse 71 Pulse Source Pulse Oximeter Temp 96.8 F Temperature Source Temporal Artery Scan Pulse Oximetry 99 Oxygen Delivery Method Room Air Height 5 ft 1 in Weight 138 lb 6.4 oz BMI 26.1 Body Fat % 34.3 Body Fat Mass 47.4 Fat Free Mass 90.8 Visceral Fat Rating 6.0 Body Water % 46.9 Body Water Mass 64.8 Muscle Mass/Score 86.2 Basal Metabolic Rate/Score 1,252 Intake Visit Reasons: (ov) PO LSG 05/07/23 Allergies sertraline [From [facility]] Allergy (Intermediate, Verified 07/29/23 09:26) flushing/feels hot dust,pollen,mold Allergy (Mild, Uncoded 05/03/23 09:39) Itchy Eyes Medication List - Last Reconciled 07/29/23 by PRITESH Knight acetaminophen 1,000 mg PO Q8H PRN bisacodyl (Dulcolax (bisacodyl)) 10 mg IN DAILY bupropion HCl (Wellbutrin XL) 300 mg PO QAM buspirone 20 mg PO DAILY@1800 buspirone 10 mg PO QAM calcium carbonate-vitamin D3 500 mg-10 mcg (400 unit) (Calcium 500 + D) 1 tab PO BID diphenhydramine HCl (Banophen) 25 mg PO TID PRN docusate sodium (Colace) 100 mg PO DAILY fexofenadine 180 mg PO BID fluticasone propionate 110 mcg/actuation 2 puffs inhalation BID fluticasone propionate 50 mcg/actuation 1 spray intranasal DAILY melatonin 3 mg PO BEDTIME multivitamin 1 tab PO DAILY sennosides (senna) 17.2 mg (2 x 8.6 mg) PO BEDTIME 90 days topiramate 50 mg PO BID HPI HPI Comments History of Present Illness Details This?a?47?yo female who is s/p LSG without hiatal hernia repair on?05/07/2023. Presents for 3 month post op visit. Weight today is 138.4 pounds, with a BMI of 26.1. There has been a 56.4 pound weight loss,(initial weight 194.8 pounds) since starting the program on 12/20/2022 reflecting a 28.9 % total body weight loss and a weight loss of 28.1 pounds since surgery (operative weight 166.5 pounds) reflecting a 16.8 % TBWL since surgery. No complaints of nausea, emesis, abdominal pain or reflux. States that she wants to increase her meal plan to include lettuce, spinach, tomato, pork, turkey. States she has been having 2 Protein 20 stern , yakut yogurt and small meal whe n she is out working and 2 isopure shakes , yogurt and small meal when home. No further constipation Taking bariatric fusion MVI and dm + D Present meal plan includes: 8-10 am isopure 26 gm (1 scoop) in 8 oz water or Protein 20 water 11-1 another shake 1/2 scoop 2-5 yogurt, or scram egg 7 pm meal 4 forks protein and 3 forks ve g. Drinking 32 oz water Exercise routine includes: walk outside, home treadmill broke unable to join [employer] due to finances COUNT INCLUDES [facility] Medical History BMI 32.0-32.9,adult Asthma DJD (degenerative joint disease) Migraines GERD (gastroesophageal reflux disease) Anxiety Depression Hyperlipidemia Surgical History (Updated 07/29/23 @ 09:27 by Comfort Arellano CMA) S/P laparoscopic sleeve gastrectomy Hx of tubal ligation Hx of cholecystectomy Family History Mother Arthritis Osteoarthritis High cholesterol Hypertension Diabetes Heart problem Father Liver problem Diabetes Hypertension High cholesterol Social History Household Members: Family Housing: Apartment Are you a primary career agent to a significant other at home: No Do you presently have visiting nurse or other home services: No Alcohol intake: never Patient Tobacco Use Status: Former Tobacco user Quit Date: age 36 Tobacco use type: Cigarette service: No Physical Exam Const General: healthy appearing and no acute distress Resp Effort & Inspection: normal respiratory effort Auscultation: clear to auscultation bilaterally Cardio Rate: regular rate Rhythm: regular rhythm GI Auscultation: normal bowel sounds Extrem General: Yes normal to inspection Assessment & Plan Assessment & Plan (1) S/P laparoscopic sleeve gastrectomy: Code(s): Z98.84 - Bariatric surgery status Plan: Patient is doing well. Discussed strategies for exercise including home videos, walking outside and tracking calories, we discussed joining [employer] but she states that even with the discount, she can not afford it. We will have her continue her current meal plan and return to the office in 3-4 weeks. Coding Level of Care Code Global (73165) Diagnoses S/P laparoscopic sleeve gastrectomy Z98.84
[2023-07-29 09:31] VITALS: BP 118/74; PULSE 71; TEMP 36; O2SAT 99; BMI 26.1
== END 2023-07-29 09:49 | disposition home or self-care (01) ==
PROVIDERS: Visit Provider Physician Assistant Surgical
DX: E66.3 Overweight (principal); Z68.26 Body mass index [BMI] 26.0-26.9, adult; Z90.3 Acquired absence of stomach [part of]; Z98.84 Bariatric surgery status
CPT/HCPCS: 99024

== ENCOUNTER → 2023-07-29 09:11 | Outpatient (BNVA) | payer OTHER, SELFPAY | PROVIDERS: Visit Provider Physician Assistant Surgical | DX: Z48.815 Encounter for surgical aftercare following surgery on the digestive system (principal); Z98.84 Bariatric surgery status | CPT/HCPCS: 99212 ==

== ENCOUNTER 2023-10-11 13:22 | Outpatient (AMB) | payer OTHER, SELFPAY ==
--- NOTE | 2023-10-11 13:31 | MHC.OFFVISWM ---
VS Expanded 10/11/23 13:40 BP 118/74 Blood Pressure Location Rt brachial Blood Pressure Position Sitting Pulse 64 Pulse Source Pulse Oximeter Temp 96.8 F Temperature Source Temporal Artery Scan Pulse Oximetry 100 Oxygen Delivery Method Room Air Height 5 ft 1 in Weight 128 lb 3.2 oz BMI 24.2 Body Fat % 28.9 Body Fat Mass 37.0 Fat Free Mass 91.0 Visceral Fat Rating 5.0 Body Water % 50.6 Body Water Mass 64.8 Muscle Mass/Score 86.4 Basal Metabolic Rate/Score 1,236 Intake Visit Reasons: (ov) PO LSG 05/07/23 Washateria Attendant Required: Yes Washateria Attendant Name: office cmi Allergies sertraline [From ZOLOFT] Allergy (Intermediate, Verified 10/11/23 13:35) flushing/feels hot dust,pollen,mold Allergy (Mild, Uncoded 05/03/23 09:39) Itchy Eyes Medication List - Last Reconciled 10/11/23 by PRITESH Knight acetaminophen 1,000 mg PO Q8H PRN bupropion HCl XL (Wellbutrin XL) 300 mg PO QAM buspirone 20 mg PO DAILY@1800 clotrimazole 1% (Antifungal (clotrimazole)) 1 appl topical BID diphenhydramine HCl (Banophen) 25 mg PO TID PRN docusate sodium (Colace) 100 mg PO DAILY fexofenadine 180 mg PO BID fluticasone propionate 110 mcg/actuation 2 puffs inhalation BID fluticasone propionate 50 mcg/actuation 1 spray intranasal DAILY melatonin 3 mg PO BEDTIME multivitamin 1 tab PO DAILY sennosides (senna) 17.2 mg (2 x 8.6 mg) PO BEDTIME 90 days topiramate 50 mg PO BID HPI Comments Details: This?a?47?yo female who is s/p LSG without hiatal hernia repair on?05/07/2023. Presents for 5 month post op visit. Weight today is 128.2 pounds, with a BMI of 24.2. There has been a 66.6 pound weight loss,(initial weight 194.8 pounds) since starting the program on 12/20/2022 reflecting a 34.1 % total body weight loss and a weight loss of 38.3 pounds since surgery (operative weight 166.5 pounds) reflecting a 23 % TBWL since surgery. No complaints of nausea, emesis, abdominal pain or reflux. States that she wants to increase her meal plan to include lettuce, spinach, tomato, pork, turkey. No further constipation she would like to know what she could do for a meal plan utilizing 2 meals per day instead of 2 shakes per day. Using 30 gm per shake whey protein 1/2 scoop 1 day per week) Taking bariatric fusion MVI and dm + D Present meal plan includes: 8-10 am isopure 26 gm (1 scoop) in 8 oz water 11-1 another shake 1/2 scoop 2-5 yogurt, or scram egg 7 pm meal 4 forks protein and 3 forks veg. Drinking 32 oz water Exercise routine includes: walk outside, home treadmill broke unable to join [employer] due to finances [facility] Medical History BMI 32.0-32.9,adult Asthma DJD (degenerative joint disease) Migraines GERD (gastroesophageal reflux disease) Anxiety Depression Hyperlipidemia Surgical History S/P laparoscopic sleeve gastrectomy Hx of tubal ligation Hx of cholecystectomy Family History Mother Arthritis Osteoarthritis High cholesterol Hypertension Diabetes Heart problem Father Liver problem Diabetes Hypertension High cholesterol Social History Household Members: Family Housing: Apartment Are you a primary career coordinator to a significant other at home: No Do you presently have visiting nurse or other home services: No Alcohol intake: never Patient Tobacco Use Status: Former Tobacco user Quit Date: age 36 Tobacco use type: Cigarette service: No Physical Exam Vital Signs: Last Vital Signs Temp 96.8 F 10/11/23 13:40 Pulse 64 10/11/23 13:40 BP 118/74 10/11/23 13:40 Pulse Ox 100 10/11/23 13:40 Oxygen Delivery Method Room Air 10/11/23 13:40 BMI result Body Mass Index 24.2 Const General: healthy appearing and no acute distress Resp Effort & Inspection: normal respiratory effort Auscultation: clear to auscultation bilaterally Cardio Rate: regular rate Rhythm: regular rhythm GI Auscultation: normal bowel sounds Extrem General: Yes normal to inspection Assessment & Plan Assessment & Plan (1) S/P laparoscopic sleeve gastrectomy: Code(s): Z98.84 - Bariatric surgery status Category: Surgical Plan: Patient has achieved a healthy weight. She does not wish to lose anymore weight. She would like to change her meal plan to incorporate to meals. Utilizing either isopure or her whey protein (26 gm per scoop) 1 shake 1 scoop and 2 meals with 4 forks protein and 4 forks vegetables. Encouraged to continue to walk outside. Follow-up in the office in 1 month for six-month postoperative lab work
[2023-10-11 13:40] VITALS: BP 118/74; PULSE 64; TEMP 36; O2SAT 100; BMI 24.2
== END 2023-10-11 14:13 | disposition home or self-care (01) ==
PROVIDERS: Visit Provider Physician Assistant Surgical
DX: Z71.3 Dietary counseling and surveillance (principal); Z90.3 Acquired absence of stomach [part of]; Z98.84 Bariatric surgery status
CPT/HCPCS: 99213

== ENCOUNTER → 2023-10-11 13:22 | Outpatient (BNVA) | payer OTHER, SELFPAY | PROVIDERS: Visit Provider Physician Assistant Surgical | DX: Z98.84 Bariatric surgery status (principal) | CPT/HCPCS: 99212 ==

== ENCOUNTER 2023-11-11 15:03 | Outpatient (AMB) | payer OTHER, SELFPAY ==
--- NOTE | 2023-11-11 15:07 | A.OFFVIS_ITS ---
VS Expanded 11/11/23 15:11 BP 149/66 H Blood Pressure Location Rt brachial Blood Pressure Position Sitting Pulse 73 Pulse Source Pulse Oximeter Temp 97.1 F Pulse Oximetry 98 Oxygen Delivery Method Room Air Height 5 ft 1 in Weight 125 lb BMI 23.6 Body Fat % 28.3 Body Fat Mass 35.2 Fat Free Mass 89.6 Visceral Fat Rating 5.0 Body Water % 51.1 Body Water Mass 63.8 Muscle Mass/Score 84.8 Basal Metabolic Rate/Score 1,215 Intake Visit Reasons: (ov) PO LSG 05/07/23 Heddle Machine Operator Required: Yes Heddle Machine Operator Name: office cmi Allergies sertraline [From ZOLOFT] Allergy (Intermediate, Verified 11/11/23 15:09) flushing/feels hot dust,pollen,mold Allergy (Mild, Uncoded 05/03/23 09:39) Itchy Eyes Medication List - Last Reconciled 11/11/23 by PRITESH Knight acetaminophen 1,000 mg PO Q8H PRN bupropion HCl XL (Wellbutrin XL) 300 mg PO QAM buspirone 20 mg PO DAILY@1800 clotrimazole 1% (Antifungal (clotrimazole)) 1 appl topical BID diphenhydramine HCl (Banophen) 25 mg PO TID PRN docusate sodium (Colace) 100 mg PO DAILY fexofenadine 180 mg PO BID fluticasone propionate 110 mcg/actuation 2 puffs inhalation BID fluticasone propionate 50 mcg/actuation 1 spray intranasal DAILY melatonin 3 mg PO BEDTIME multivitamin 1 tab PO DAILY sennosides (senna) 17.2 mg (2 x 8.6 mg) PO BEDTIME 90 days topiramate 50 mg PO BID HPI Comments Details: This?a?48?yo female who is s/p LSG without hiatal hernia repair on?05/07/2023. Presents for 6 month post op visit. Weight today is 125 pounds, with a BMI of 23.6. There has been a 69.8 pound weight loss,(initial weight 194.8 pounds) since starting the program on 12/20/2022 reflecting a 35.8 % total body weight loss and a weight loss of 41.5 pounds since surgery (operative weight 166.5 pounds) reflecting a 24.9 % TBWL since surgery. No complaints of nausea, emesis, abdominal pain or reflux. States that she sometimes is hungry after dinner. No further constipation she would like to know what she could do for a meal plan utilizing 2 meals per day instead of 2 shakes per day. Using 30 gm per shake whey protein 1/2 scoop 1 day per week) Taking bariatric fusion MVI and dm + D Present meal plan includes: 8-10 am isopure 26 gm (1 scoop) or whey protein 30 gm per shake w 8 oz water or almond milk noon meal 4 forks protein and 4 forks veg 7 pm meal 4 forks protein and 4 forks veg. Drinking 40-60 oz water Exercise routine includes: walk outside, home treadmill broke unable to join [employer] due to finances Any post op complications: none CHARLES: never DM: never HTN: never Hyperlipidemia: improved GERD:?0-5 scale ??0 = no symptoms ??1 = symptoms noticeable but not bothersome 2 =symptoms bothersome but not daily ? 3 = symptoms bothersome and daily 4 = symptoms affect daily activities 5 = symptoms are incapacitating, unable to do daily activities ? How bad is the heartburn: 0 ? Heartburn while lying down: 0 ? Heartburn when standing up: 0 ? Heartburn after meals: 0 ? Does heartburn change your diet: 0 ? Does heartburn wake you up from sleep: 0 ? Do you have difficulty swallowin ? Do you have pain with swallowin ? If you take medicine for your reflux, does this affect your daily life: 0 Satisfaction with present condition - satisfied or not satisfied: satisfied [facility] Medical History BMI 32.0-32.9,adult Asthma DJD (degenerative joint disease) Migraines GERD (gastroesophageal reflux disease) Anxiety Depression Hyperlipidemia Surgical History S/P laparoscopic sleeve gastrectomy Hx of tubal ligation Hx of cholecystectomy Family History Mother Arthritis Osteoarthritis High cholesterol Hypertension Diabetes Heart problem Father Liver problem Diabetes Hypertension High cholesterol Social History Household Members: Family Housing: Apartment Are you a primary care process manager to a significant other at home: No Do you presently have visiting nurse or other home services: No Alcohol intake: never Patient Tobacco Use Status: Former Tobacco user Tobacco use type: Cigarette service: No Physical Exam Vital Signs: Last Vital Signs Temp 97.1 F 11/11/23 15:11 Pulse 73 11/11/23 15:11 BP 149/66 H 11/11/23 15:11 Pulse Ox 98 11/11/23 15:11 Oxygen Delivery Method Room Air 11/11/23 15:11 BMI result Body Mass Index 23.6 Const General: cooperative and no acute distress Orientation/consciousness: patient oriented x3 Resp Effort & Inspection: normal respiratory effort Auscultation: clear to auscultation bilaterally Cardio Rate: regular rate Rhythm: regular rhythm GI Inspection: Yes normal to inspection and Yes incision (well healed) Palpation (GI): Soft to palpation and no masses Neuro General: patient oriented x3 Assessment & Plan Assessment & Plan (1) S/P laparoscopic sleeve gastrectomy: Code(s): Z98.84 - Bariatric surgery status Category: Surgical Plan: Overall, patient has done very well. She will continue current meal plan. Encouraged to restart exercise, including yoga. We will check six-month postop labs. Return to the office in 2 months. Orders: Orders Insulin Today E78.5 - Hyperlipidemia, unspecified, K74.00 - Hepatic fibrosis, unspecified, Z98.84 - Bariatric surgery status Hemoglobin A1c Today E78.5 - Hyperlipidemia, unspecified, K74.00 - Hepatic fibrosis, unspecified, Z98.84 - Bariatric surgery status Complete Blood Count Auto Diff Today E78.5 - Hyperlipidemia, unspecified, K74.00 - Hepatic fibrosis, unspecified, Z98.84 - Bariatric surgery status Zinc Today E78.5 - Hyperlipidemia, unspecified, K74.00 - Hepatic fibrosis, unspecified, Z98.84 - Bariatric surgery status Vitamin B1 Today E78.5 - Hyperlipidemia, unspecified, K74.00 - Hepatic fibrosis, unspecified, Z98.84 - Bariatric surgery status Vitamin A Today E78.5 - Hyperlipidemia, unspecified, K74.00 - Hepatic fibrosis, unspecified, Z98.84 - Bariatric surgery status TSH reflex Free T4 Today E78.5 - Hyperlipidemia, unspecified, K74.00 - Hepatic fibrosis, unspecified, Z98.84 - Bariatric surgery status Ferritin Today E78.5 - Hyperlipidemia, unspecified, K74.00 - Hepatic fibrosis, unspecified, Z98.84 - Bariatric surgery status Vitamin D 25-OH Total Today E78.5 - Hyperlipidemia, unspecified, K74.00 - Hepatic fibrosis, unspecified, Z98.84 - Bariatric surgery status Lipid Panel Today E78.5 - Hyperlipidemia, unspecified, K74.00 - Hepatic fibrosis, unspecified, Z98.84 - Bariatric surgery status IRON PROFILE Today E78.5 - Hyperlipidemia, unspecified, K74.00 - Hepatic fibrosis, unspecified, Z98.84 - Bariatric surgery status Vitamin B12 and Folate Today E78.5 - Hyperlipidemia, unspecified, K74.00 - Hepatic fibrosis, unspecified, Z98.84 - Bariatric surgery status C Reactive Protein Today E78.5 - Hyperlipidemia, unspecified, K74.00 - Hepatic fibrosis, unspecified, Z98.84 - Bariatric surgery status Basic Metabolic Panel Today E78.5 - Hyperlipidemia, unspecified, K74.00 - Hepatic fibrosis, unspecified, Z98.84 - Bariatric surgery status
[2023-11-11 15:11] VITALS: BP 149/66; PULSE 73; TEMP 36.2; O2SAT 98; BMI 23.6
== END 2023-11-11 15:44 | disposition home or self-care (01) ==
PROVIDERS: Visit Provider Physician Assistant Surgical
DX: Z71.3 Dietary counseling and surveillance (principal); Z90.3 Acquired absence of stomach [part of]; Z98.84 Bariatric surgery status
CPT/HCPCS: 99214

== ENCOUNTER → 2023-11-11 15:03 | Outpatient (BNVA) | payer OTHER, SELFPAY | PROVIDERS: Visit Provider Physician Assistant Surgical | DX: Z98.84 Bariatric surgery status (principal); E78.5 Hyperlipidemia, unspecified; K74.00 Hepatic fibrosis, unspecified | CPT/HCPCS: 99212 ==

== ENCOUNTER 2023-11-12 09:38 | Outpatient (REF) | payer OTHER, SELFPAY ==
[2023-11-12 10:08] LABS: MANUAL DIFF FLAG NO
[2023-11-12 10:37] LABS: Basophils Percent Auto 0.7 % (0-2); Eosinophils Absolute Auto 0.1 X10*3/uL (0.0-0.4); Eosinophils Percent Auto 1.7 % (0-4); Hematocrit 36.8 % (37.0-47.0); Hemoglobin 12.3 g/dl (12.0-16.0); Imm Gran Abs Auto 0.01 X10*3/uL (0.00-0.03); Imm Gran Pct Auto 0.2 % (0.0-0.4); Lymphocytes Absolute Auto 1.3 X10*3/uL (1.2-4.9); Lymphocytes Percent Auto 30.2 % (20-40); Mean Corpuscular HGB Conc 33.4 g/dl (31.0-35.0); Mean Corpuscular Hemoglobin 30.1 pg (27.0-33.0); Mean Corpuscular Volume 90.2 fL (80.0-98.0); Mean Platelet Volume 10.8 fL (9.4-12.3); Monocytes Absolute Auto 0.3 X10*3/uL (0.1-1.2); Monocytes Percent Auto 6.2 % (2-11); Neutrophils Absolute Auto 2.6 x10*3/uL (2.0-8.3); Platelet Count 275 X10*3/uL (160-400); Red Blood Count 4.08 X10*6/uL (4.20-5.50); Red Cell Distribution Width 13.9 % (11.0-16.0); White Blood Count 4.2 X10*3/uL (4.8-10.8)
[2023-11-12 10:44] LABS: Estimated Average Glucose 105 mg/dL; Hemoglobin A1c % 5.3 % (<6.0)
[2023-11-12 11:31] LABS: Anion Gap 11 (12-20); Blood Urea Nitrogen 19 mg/dL (9-16); C Reactive Protein < 0.10 mg/dL (< or = 0.50); Calcium 9.8 mg/dL (8.4-10.2); Carbon Dioxide 22 mmol/L (22-29); Chloride 114 mmol/L (96-108); Cholesterol 228 mg/dL (<200); Estimated Glomerular Filt Rate > 60; Glucose Random 88 mg/dL (60-115); HDL Cholesterol 45 mg/dL (>40); Iron 85 mcg/dL (30-160); LDL Cholesterol Calculated 160 mg/dL (<100); Percent Iron Saturation 37 % (15-50); Potassium 3.8 mmol/L (3.3-5.1); Sodium 143 mmol/L (135-145); Total Iron Binding Capacity 228 mcg/dL (228-428); Triglycerides 116 mg/dL (<150); Unsaturated Iron Binding 143 ug/dL
[2023-11-12 11:42] LABS: Ferritin 258 ng/mL (10-250); TSH reflex Free T4 0.91 uIU/mL (0.32-4.0); Vitamin D 25-OH Total 36.1 ng/mL (>30)
[2023-11-12 12:02] LABS: Folate 10.5 ng/mL (> or = 4.0); Vitamin B12 458 pg/mL (200-900)
[2023-11-12 12:13] LABS: Insulin 6 uU/mL (2-29)
[2023-11-17 00:32] LABS: Vitamin A 67 mcg/dL (38-98)
[2023-11-17 00:47] LABS: Zinc 84 mcg/dL (60-130)
[2023-11-19 06:29] LABS: Vitamin B1 29 nmol/L (8-30)
== END 2023-11-12 09:39 | disposition home or self-care (01) ==
LOC: HO.LAB 09:38
PROVIDERS: Visit Provider Physician Assistant Surgical
DX: E78.5 Hyperlipidemia, unspecified (principal); K74.00 Hepatic fibrosis, unspecified; Z98.84 Bariatric surgery status
CPT/HCPCS: 36415; 80048; 80061; 82306; 82607; 82728; 82746; 83036; 83525; 83540; 84425; 84443; 84590; 84630; 85025; 86140

== ENCOUNTER 2024-01-06 14:14 | Outpatient (AMB) | payer OTHER, SELFPAY ==
--- NOTE | 2024-01-06 14:32 | MHC.OFFVISWM ---
VS Expanded 01/06/24 14:43 BP 124/76 Blood Pressure Location Rt brachial Blood Pressure Position Sitting Pulse 70 Pulse Source Pulse Oximeter Temp 96.8 F Temperature Source Temporal Artery Scan Pulse Oximetry 99 Oxygen Delivery Method Room Air Height 5 ft 1 in Weight 120 lb 12.8 oz BMI 22.8 Body Fat % 27.2 Body Fat Mass 32.8 Fat Free Mass 87.8 Visceral Fat Rating 4.0 Body Water % 51.7 Body Water Mass 62.4 Muscle Mass/Score 83.4 Basal Metabolic Rate/Score 1,191 Intake Visit Reasons: (ov) PO LSG 05/07/23 Operating Room Coordinator Required: No Allergies sertraline [From ZOLOFT] Allergy (Intermediate, Verified 01/06/24 14:40) flushing/feels hot dust,pollen,mold Allergy (Mild, Uncoded 05/03/23 09:39) Itchy Eyes Medication List - Last Reconciled 01/06/24 by PRITESH Knight acetaminophen 1,000 mg PO Q8H PRN bupropion HCl XL (Wellbutrin XL) 300 mg PO QAM buspirone 20 mg PO DAILY@1800 clotrimazole 1% (Antifungal (clotrimazole)) 1 appl topical BID diphenhydramine HCl (Banophen) 25 mg PO TID PRN docusate sodium (Colace) 100 mg PO DAILY fexofenadine 180 mg PO BID fluticasone propionate 110 mcg/actuation 2 puffs inhalation BID fluticasone propionate 50 mcg/actuation 1 spray intranasal DAILY melatonin 3 mg PO BEDTIME multivitamin 1 tab PO DAILY sennosides (senna) 17.2 mg (2 x 8.6 mg) PO BEDTIME 90 days topiramate 50 mg PO BID HPI Comments Details: This?a?48?yo female who is s/p LSG without hiatal hernia repair on?05/07/2023. Presents for 8 month post op visit. Weight today is 120.8 pounds, with a BMI of 22.8. There has been a 74 pound weight loss,(initial weight 194.8 pounds) since starting the program on 12/20/2022 reflecting a 37.9 % total body weight loss and a weight loss of 45.7 pounds since surgery (operative weight 166.5 pounds) reflecting a 27.4 % TBWL since surgery. No complaints of nausea, emesis, abdominal pain or reflux. States that she sometimes is hungry after dinner. No further constipation Using 30 gm per shake whey protein 1/2 scoop 1 day per week) Taking bariatric fusion MVI and dm + D Present meal plan includes: 8-10 am isopure 26 gm (1 scoop) or whey protein 30 gm per shake w 8 oz water or almond milk noon meal 4 forks protein and 4 forks veg 7 pm meal 4 forks protein and 4 forks veg. Drinking 40-60 oz water Exercise routine includes: none in several weeks due to ankle pain. just got a cortisone injection and now no pain. [facility] Medical History BMI 32.0-32.9,adult Asthma DJD (degenerative joint disease) Migraines GERD (gastroesophageal reflux disease) Anxiety Depression Hyperlipidemia Surgical History S/P laparoscopic sleeve gastrectomy Hx of tubal ligation Hx of cholecystectomy Family History Mother Arthritis Osteoarthritis High cholesterol Hypertension Diabetes Heart problem Father Liver problem Diabetes Hypertension High cholesterol Social History Household Members: Family Housing: Apartment Are you a primary care services manager to a significant other at home: No Do you presently have visiting nurse or other home services: No Alcohol intake: never Patient Tobacco Use Status: Former Tobacco user Tobacco use type: Cigarette service: No Physical Exam Vital Signs: Last Vital Signs Temp 96.8 F 01/06/24 14:43 Pulse 70 01/06/24 14:43 BP 124/76 01/06/24 14:43 Pulse Ox 99 01/06/24 14:43 Oxygen Delivery Method Room Air 01/06/24 14:43 BMI result Body Mass Index 22.8 Const General: healthy appearing and no acute distress Resp Effort & Inspection: normal respiratory effort Auscultation: clear to auscultation bilaterally Cardio Rate: regular rate Rhythm: regular rhythm GI Auscultation: normal bowel sounds Extrem General: Yes normal to inspection Assessment & Plan Assessment & Plan (1) Obesity (BMI 30-39.9): Code(s): E66.9 - Obesity, unspecified Category: Medical Plan: Discussed the importance of measuring her food portions. Additionally, she did inquire about a 30 g ready to drink shake which she could do in the morning.
[2024-01-06 14:43] VITALS: BP 124/76; PULSE 70; TEMP 36; O2SAT 99; BMI 22.8
== END 2024-01-06 15:30 | disposition home or self-care (01) ==
PROVIDERS: Visit Provider Physician Assistant Surgical
DX: Z71.3 Dietary counseling and surveillance (principal); Z90.3 Acquired absence of stomach [part of]; Z98.84 Bariatric surgery status
CPT/HCPCS: 99213

== ENCOUNTER → 2024-01-06 14:14 | Outpatient (BNVA) | payer OTHER, SELFPAY | PROVIDERS: Visit Provider Physician Assistant Surgical | DX: E66.9 Obesity, unspecified (principal); Z71.3 Dietary counseling and surveillance; Z98.84 Bariatric surgery status | CPT/HCPCS: 99212 ==

== ENCOUNTER 2024-02-13 14:48 | Outpatient (AMB) | payer OTHER, SELFPAY ==
--- NOTE | 2024-02-13 14:55 | A.OFFVIS_ITS ---
VS Expanded 02/13/24 15:01 BP 125/72 Blood Pressure Location Rt brachial Blood Pressure Position Sitting Pulse 77 Pulse Source Pulse Oximeter Temp 96.5 F L Temperature Source Temporal Artery Scan Pulse Oximetry 99 Oxygen Delivery Method Room Air Height 5 ft 1 in Weight 118 lb BMI 22.3 Body Fat % 26.5 Body Fat Mass 31.4 Fat Free Mass 86.6 Visceral Fat Rating 4.0 Body Water % 52.3 Body Water Mass 61.8 Muscle Mass/Score 82.2 Basal Metabolic Rate/Score 1,176 Intake Visit Reasons: (ov) PO LSG 05/07/23 Allergies sertraline [From ZOLOFT] Allergy (Intermediate, Verified 02/13/24 14:55) flushing/feels hot dust,pollen,mold Allergy (Mild, Uncoded 02/13/24 14:55) Itchy Eyes HPI Comments Details: This?a?48?yo female who is s/p LSG without hiatal hernia repair on?05/07/2023. Presents for 9 month post op visit. Weight today is 118 pounds, with a BMI of 22.3. There has been a 76.8 pound weight loss,(initial weight 194.8 pounds) since starting the program on 12/20/2022 reflecting a 39.4 % total body weight loss and a weight loss of 48.5 pounds since surgery (operative weight 166.5 pounds) reflecting a 29.1 % TBWL since surgery. No complaints of nausea, emesis, abdominal pain or reflux. States that she sometimes is hungry after dinner. No further constipation Taking bariatric fusion MVI and dm + D Present meal plan includes: 9-11 am premier protein (1 scoop) w 8 oz almond milk noon meal 4 forks protein and 4 forks veg 2-4 pm and other 1 scoop shake 7 pm meal 4 forks protein and 4 forks veg. Drinking 40-60 oz water Exercise routine includes: band exercises at home [facility] Medical History BMI 32.0-32.9,adult Asthma DJD (degenerative joint disease) Migraines GERD (gastroesophageal reflux disease) Anxiety Depression Hyperlipidemia Surgical History S/P laparoscopic sleeve gastrectomy Hx of tubal ligation Hx of cholecystectomy Family History Mother Arthritis Osteoarthritis High cholesterol Hypertension Diabetes Heart problem Father Liver problem Diabetes Hypertension High cholesterol Social History Household Members: Family Housing: Apartment Are you a primary child care director to a significant other at home: No Do you presently have visiting nurse or other home services: No Alcohol intake: never Patient Tobacco Use Status: Former Tobacco user Tobacco use type: Cigarette service: No Physical Exam Vital Signs: Last Vital Signs Temp 96.5 F L 02/13/24 15:01 Pulse 77 02/13/24 15:01 BP 125/72 02/13/24 15:01 Pulse Ox 99 02/13/24 15:01 Oxygen Delivery Method Room Air 02/13/24 15:01 BMI result Body Mass Index 22.3 Const General: healthy appearing and no acute distress Resp Effort & Inspection: normal respiratory effort Auscultation: clear to auscultation bilaterally Cardio Rate: regular rate Rhythm: regular rhythm GI Auscultation: normal bowel sounds Extrem General: Yes normal to inspection Assessment & Plan Assessment & Plan (1) S/P laparoscopic sleeve gastrectomy: Code(s): Z98.84 - Bariatric surgery status Category: Surgical Plan: Patient has done very well. She has no complaints at today's visit. She will continue current meal plan and exercise plan. Follow-up in the office as scheduled.
[2024-02-13 15:01] VITALS: BP 125/72; PULSE 77; TEMP 35.8; O2SAT 99; BMI 22.3
== END 2024-02-13 15:41 | disposition home or self-care (01) ==
PROVIDERS: Visit Provider Physician Assistant Surgical
DX: Z71.3 Dietary counseling and surveillance (principal); Z98.84 Bariatric surgery status
CPT/HCPCS: 99213

== ENCOUNTER → 2024-02-13 14:48 | Outpatient (BNVA) | payer OTHER, SELFPAY | PROVIDERS: Visit Provider Physician Assistant Surgical | DX: Z71.3 Dietary counseling and surveillance (principal); Z98.84 Bariatric surgery status | CPT/HCPCS: 99212 ==

== ENCOUNTER 2024-04-29 14:32 | Outpatient (AMB) | payer MEDICARE, MEDICAID, SELFPAY ==
--- NOTE | 2024-04-29 14:39 | MHC.OFFVISWM ---
VS Expanded 04/29/24 14:56 BP 118/70 Blood Pressure Location Rt brachial Blood Pressure Position Sitting Pulse 68 Pulse Source Pulse Oximeter Temp 97.8 F Temperature Source Temporal Artery Scan Pulse Oximetry 100 Oxygen Delivery Method Room Air Height 5 ft 1 in Weight 115 lb BMI 21.7 Body Fat % 25.3 Body Fat Mass 29.2 Fat Free Mass 85.8 Visceral Fat Rating 4.0 Body Water % 53.2 Body Water Mass 61.0 Muscle Mass/Score 81.4 Basal Metabolic Rate/Score 1,162 Intake Visit Reasons: (ov) PO LSG 05/07/23 Mobile Electronics Installer Required: No Allergies sertraline [From ZOLOFT] Allergy (Intermediate, Verified 04/29/24 14:51) flushing/feels hot dust,pollen,mold Allergy (Mild, Uncoded 02/13/24 14:55) Itchy Eyes Medication List - Last Reconciled 04/29/24 by PRITESH Knight acetaminophen 1,000 mg PO Q8H PRN bupropion HCl XL (Wellbutrin XL) 300 mg PO QAM buspirone 20 mg PO DAILY@1800 clotrimazole 1% (Antifungal (clotrimazole)) 1 appl topical BID diphenhydramine HCl (Banophen) 25 mg PO TID PRN docusate sodium (Colace) 100 mg PO DAILY fexofenadine 180 mg PO BID fluticasone propionate 110 mcg/actuation 2 puffs inhalation BID fluticasone propionate 50 mcg/actuation 1 spray intranasal DAILY melatonin 3 mg PO BEDTIME multivitamin 1 tab PO DAILY sennosides (senna) 17.2 mg (2 x 8.6 mg) PO BEDTIME 90 days topiramate 50 mg PO BID HPI Comments Details: This?a?48?yo female who is s/p LSG without hiatal hernia repair on?05/07/2023. Presents for 1 year post op visit. Weight today is 115 pounds, with a BMI of 21.7. There has been a 79.8 pound weight loss,(initial weight 194.8 pounds) since starting the program on 12/20/2022 reflecting a 40.9 % total body weight loss and a weight loss of 51.5 pounds since surgery (operative weight 166.5 pounds) reflecting a 30.9 % TBWL since surgery. No complaints of nausea, emesis, abdominal pain or reflux. States that she sometimes is hungry after dinner. She states that she is having difficulty with excess skin of her abdomen and arms. This causes rash as well as discomfort with pain and itching. She does get an odor underneath her abdominal fold and in the groin area. This causes increased hygiene demand. She would have to shower at least twice per day. With regard to her arms, this causes discomfort with exercise and ill fitting clothing as a result of the excess skin. She has been using the prescribed clotrimazole with efficacy although recurrence if she stops using it. No further constipation Taking bariatric fusion MVI and dm + D Present meal plan includes: 9-11 am premier protein (1 scoop) w 8 oz almond milk noon meal 4 forks protein and 4 forks veg 2-4 pm and other 1 scoop shake 7 pm meal 4 forks protein and 4 forks veg. Drinking 40-60 oz water Exercise routine includes: Recently went to PT for left ankle, needs surgery, seeing [facility], waiting for CT scan. band exercises at home Any post op complications: none CHARLES: never DM: never HTN: never Hyperlipidemia: improved GERD:?0-5 scale ??0 = no symptoms ??1 = symptoms noticeable but not bothersome 2 =symptoms bothersome but not daily ? 3 = symptoms bothersome and daily 4 = symptoms affect daily activities 5 = symptoms are incapacitating, unable to do daily activities ? How bad is the heartburn: 0 ? Heartburn while lying down: 0 ? Heartburn when standing up: 0 ? Heartburn after meals: 0 ? Does heartburn change your diet: 0 ? Does heartburn wake you up from sleep: 0 ? Do you have difficulty swallowin ? Do you have pain with swallowin ? If you take medicine for your reflux, does this affect your daily life: 0 Satisfaction with present condition - satisfied or not satisfied: satisfied [facility] Medical History BMI 32.0-32.9,adult Asthma DJD (degenerative joint disease) Migraines GERD (gastroesophageal reflux disease) Anxiety Depression Hyperlipidemia Surgical History S/P laparoscopic sleeve gastrectomy Hx of tubal ligation Hx of cholecystectomy Family History Mother Arthritis Osteoarthritis High cholesterol Hypertension Diabetes Heart problem Father Liver problem Diabetes Hypertension High cholesterol Social History Household Members: Family Housing: Apartment Are you a primary inspector health care facilities to a significant other at home: No Do you presently have visiting nurse or other home services: No Alcohol intake: never Patient Tobacco Use Status: Former Tobacco user Tobacco use type: Cigarette service: No Physical Exam Const General: cooperative and no acute distress Orientation/consciousness: patient oriented x3 Resp Effort & Inspection: normal respiratory effort Auscultation: clear to auscultation bilaterally Cardio Rate: regular rate Rhythm: regular rhythm GI Inspection: Yes normal to inspection and Yes incision (well healed) Palpation (GI): Soft to palpation and no masses Neuro General: patient oriented x3 Assessment & Plan Assessment & Plan (1) S/P laparoscopic sleeve gastrectomy: Code(s): Z98.84 - Bariatric surgery status Category: Surgical Plan: Patient is doing well, satisfied with her meal plan. She may expand to include fresh fruit including berries, apple, pear, orange. She is somewhat limited in exercise given her ankle injury, she is doing the best that she can with band work. Continue to follow meal plan. One year postop labs ordered. Return to clinic 3 months, sooner should she have any questions or concerns. Orders: Orders Hemoglobin A1c Today E78.5 - Hyperlipidemia, unspecified, Z98.84 - Bariatric surgery status Lipid Panel Today E78.5 - Hyperlipidemia, unspecified, Z98.84 - Bariatric surgery status IRON PROFILE Today E78.5 - Hyperlipidemia, unspecified, Z98.84 - Bariatric surgery status Comprehensive Met. Panel Today E78.5 - Hyperlipidemia, unspecified, Z98.84 - Bariatric surgery status Vitamin A Today E78.5 - Hyperlipidemia, unspecified, Z98.84 - Bariatric surgery status TSH reflex Free T4 Today E78.5 - Hyperlipidemia, unspecified, Z98.84 - Bariatric surgery status Insulin Today E78.5 - Hyperlipidemia, unspecified, Z98.84 - Bariatric surgery status Complete Blood Count Auto Diff Today E78.5 - Hyperlipidemia, unspecified, Z98.84 - Bariatric surgery status Vitamin B12 and Folate Today E78.5 - Hyperlipidemia, unspecified, Z98.84 - Bariatric surgery status Zinc Today E78.5 - Hyperlipidemia, unspecified, Z98.84 - Bariatric surgery status C Reactive Protein Today E78.5 - Hyperlipidemia, unspecified, Z98.84 - Bariatric surgery status Vitamin B1 Today E78.5 - Hyperlipidemia, unspecified, Z98.84 - Bariatric surgery status Ferritin Today E78.5 - Hyperlipidemia, unspecified, Z98.84 - Bariatric surgery status Vitamin D 25-OH Total Today E78.5 - Hyperlipidemia, unspecified, Z98.84 - Bariatric surgery status
[2024-04-29 14:56] VITALS: BP 118/70; PULSE 68; TEMP 36.6; O2SAT 100; BMI 21.7
== END 2024-04-29 15:19 | disposition home or self-care (01) ==
PROVIDERS: Visit Provider Physician Assistant Surgical
DX: L98.7 Excessive and redundant skin and subcutaneous tissue (principal); Z90.3 Acquired absence of stomach [part of]; Z98.84 Bariatric surgery status
CPT/HCPCS: 99214; G2211

== ENCOUNTER → 2024-04-29 14:32 | Outpatient (BNVA) | payer MEDICARE, MEDICAID, SELFPAY | PROVIDERS: Visit Provider Physician Assistant Surgical | DX: L98.7 Excessive and redundant skin and subcutaneous tissue (principal); E78.5 Hyperlipidemia, unspecified; Z71.3 Dietary counseling and surveillance; Z98.84 Bariatric surgery status | CPT/HCPCS: 99212 ==

== ENCOUNTER 2024-05-07 09:03 | Outpatient (REF) | payer MEDICARE, MEDICAID, SELFPAY ==
[2024-05-07 09:23] LABS: MANUAL DIFF FLAG NO
[2024-05-07 09:50] LABS: Basophils Absolute Auto 0.1 X10*3/uL (0.0-0.2); Basophils Percent Auto 1.3 % (0-2); Eosinophils Absolute Auto 0.1 X10*3/uL (0.0-0.4); Eosinophils Percent Auto 1.7 % (0-4); Hematocrit 37.6 % (37.0-47.0); Hemoglobin 12.6 g/dl (12.0-16.0); Imm Gran Abs Auto 0.01 X10*3/uL (0.00-0.03); Imm Gran Pct Auto 0.2 % (0.0-0.4); Lymphocytes Absolute Auto 1.7 X10*3/uL (1.2-4.9); Lymphocytes Percent Auto 37.2 % (20-40); Mean Corpuscular HGB Conc 33.5 g/dl (31.0-35.0); Mean Corpuscular Hemoglobin 30.1 pg (27.0-33.0); Monocytes Absolute Auto 0.3 X10*3/uL (0.1-1.2); Monocytes Percent Auto 6.5 % (2-11); Neutrophils Absolute Auto 2.4 x10*3/uL (2.0-8.3); Neutrophils Percent Auto 53.1 % (45-73); Platelet Count 299 X10*3/uL (160-400); Red Blood Count 4.18 X10*6/uL (4.20-5.50); Red Cell Distribution Width 13.5 % (11.0-16.0); White Blood Count 4.6 X10*3/uL (4.8-10.8)
[2024-05-07 09:54] LABS: Estimated Average Glucose 103 mg/dL; Hemoglobin A1C 107.6629 umol/L; Hemoglobin A1c % 5.2 % (<6.0); Total Hemoglobin (HGBA1C) 3242.8429 umol/L
[2024-05-07 10:46] LABS: Alanine Aminotransferase 22 U/L (0-31); Albumin Level 4.2 g/dL (3.5-5.0); Alkaline Phosphatase 68 U/L (39-117); Anion Gap 9 (12-20); Aspartate Amino Transferase 21 U/L (5-31); Bilirubin Total 0.4 mg/dL (0.0-1.0); Blood Urea Nitrogen 20 mg/dL (9-16); C Reactive Protein < 0.04 mg/dL (< or = 0.50); Calcium 9.6 mg/dL (8.4-10.2); Carbon Dioxide 26 mmol/L (22-29); Chloride 115 mmol/L (96-108); Cholesterol 214 mg/dL (<200); Estimated Glomerular Filt Rate 58; Glucose Random 87 mg/dL (60-115); HDL Cholesterol 58 mg/dL (>40); Iron 58 mcg/dL (30-160); LDL Cholesterol Calculated 142 mg/dL (<100); Percent Iron Saturation 25 % (15-50); Potassium 3.8 mmol/L (3.3-5.1); Sodium 146 mmol/L (135-145); Total Iron Binding Capacity 235 mcg/dL (228-428); Total Protein 7.3 g/dL (6.5-8.0); Triglycerides 72 mg/dL (<150); Unsaturated Iron Binding 177 ug/dL
[2024-05-07 11:04] LABS: Ferritin 231 ng/mL (10-250); TSH reflex Free T4 1.52 uIU/mL (0.32-4.0); Vitamin D 25-OH Total 31.8 ng/mL (>30)
[2024-05-07 11:09] LABS: Folate 6.6 ng/mL (> or = 4.0); Vitamin B12 440 pg/mL (200-900)
[2024-05-07 11:25] LABS: Insulin 8 uU/mL (2-29)
[2024-05-11 03:08] LABS: Zinc 91 mcg/dL (60-130)
[2024-05-12 00:39] LABS: Vitamin A 84 mcg/dL (38-98)
[2024-05-14 16:29] LABS: Vitamin B1 24 nmol/L (8-30)
== END 2024-05-07 09:04 | disposition home or self-care (01) ==
LOC: HO.LAB 09:03
PROVIDERS: Visit Provider Physician Assistant Surgical
DX: E78.5 Hyperlipidemia, unspecified (principal); Z98.84 Bariatric surgery status; Z13.1 Encounter for screening for diabetes mellitus
CPT/HCPCS: 36415; 80053; 80061; 82306; 82607; 82728; 82746; 83036; 83525; 83540; 84425; 84443; 84590; 84630; 85025; 86140

== ENCOUNTER 2024-07-17 10:44 | Outpatient (AMB) | payer MEDICARE, MEDICAID, SELFPAY ==
--- NOTE | 2024-07-17 10:52 | MHC.OFFVISWM ---
VS Expanded 07/17/24 10:53 BP 98/63 Blood Pressure Location Lt brachial Blood Pressure Position Sitting Pulse 79 Pulse Source Pulse Oximeter Temp 97.7 F Temperature Source Temporal Artery Scan Pulse Oximetry 98 Oxygen Delivery Method Room Air Height 5 ft 1 in Weight 116 lb 2 oz BMI 21.9 Body Fat % 11.2 Body Fat Mass 13.0 Fat Free Mass 103.2 Body Water % 63.2 Body Water Mass 73.4 Muscle Mass/Score 97.8 Basal Metabolic Rate/Score 1,336 Intake Visit Reasons: (ov) PO LSG 05/07/23 Intake Note: (ov) PO LSG 05/07/23 Meteorological Engineer Required: No Allergies sertraline [From ZOLOFT] Allergy (Intermediate, Verified 04/29/24 14:51) flushing/feels hot dust,pollen,mold Allergy (Mild, Uncoded 02/13/24 14:55) Itchy Eyes Medication List - Last Reconciled 07/17/24 by PRITESH Knight acetaminophen 1,000 mg PO Q8H PRN bupropion HCl XL (Wellbutrin XL) 300 mg PO QAM buspirone 20 mg PO DAILY@1800 clotrimazole 1% (Antifungal (clotrimazole)) 1 appl topical BID diphenhydramine HCl (Banophen) 25 mg PO TID PRN docusate sodium (Colace) 100 mg PO DAILY fexofenadine 180 mg PO BID fluticasone propionate 110 mcg/actuation 2 puffs inhalation BID fluticasone propionate 50 mcg/actuation 1 spray intranasal DAILY melatonin 3 mg PO BEDTIME multivitamin 1 tab PO DAILY sennosides (senna) 17.2 mg (2 x 8.6 mg) PO BEDTIME topiramate 50 mg PO BID HPI Comments Details: This?a?48?yo female who is s/p LSG without hiatal hernia repair on?05/07/2023. Presents for 1 year 2 month post op visit. Weight today is 115 pounds, with a BMI of 21.7. There has been a 79.8 pound weight loss,(initial weight 194.8 pounds) since starting the program on 12/20/2022 reflecting a 40.9 % total body weight loss and a weight loss of 51.5 pounds since surgery (operative weight 166.5 pounds) reflecting a 30.9 % TBWL since surgery. No complaints of nausea, emesis, abdominal pain or reflux. States that she sometimes is hungry after dinner. She states that she is having difficulty with excess skin of her abdomen and arms. This causes rash as well as discomfort with pain and itching. She does get an odor underneath her abdominal fold and in the groin area. This causes increased hygiene demand. She would have to shower at least twice per day. With regard to her arms, this causes discomfort with exercise and ill fitting clothing as a result of the excess skin. She has been using the prescribed clotrimazole with efficacy although recurrence if she stops using it. This occurrs about 2-3 times per month. She has also marielena increasing the number of times she is showering to keep the area clean. Additionally, she has been experiencing increasing midthoracic back pain. This caused so much discomfort that she went to see her primary care physician and an x-ray was obtained. Back pain persists and she likely will be referred to a renal medicine specialist. There is concern that the excess skin is contributing to her low back pain. She has had an 80 lb weight loss since starting the program. No further constipation Taking bariatric fusion MVI and dm + D Present meal plan includes: 9-11 am premier protein (1 scoop) w 8 oz almond milk noon meal 4 forks protein and 4 forks veg 2-4 pm and other 1 scoop shake 7 pm meal 4 forks protein and 4 forks veg. Drinking 40-60 oz water Exercise routine includes: Recently went to PT for left ankle, needs surgery, seeing [facility], waiting for CT scan. band exercises at home [facility] Medical History BMI 32.0-32.9,adult Asthma DJD (degenerative joint disease) Migraines GERD (gastroesophageal reflux disease) Anxiety Depression Hyperlipidemia Surgical History S/P laparoscopic sleeve gastrectomy Hx of tubal ligation Hx of cholecystectomy Family History Mother Arthritis Osteoarthritis High cholesterol Hypertension Diabetes Heart problem Father Liver problem Diabetes Hypertension High cholesterol Social History Household Members: Family Housing: Apartment Are you a primary pharmacy care coordinator to a significant other at home: No Do you presently have visiting nurse or other home services: No Alcohol intake: never Patient Tobacco Use Status: Former Tobacco user Tobacco use type: Cigarette service: No Physical Exam Vital Signs: Last Vital Signs Temp 97.7 F 07/17/24 10:53 Pulse 79 07/17/24 10:53 BP 98/63 07/17/24 10:53 Pulse Ox 98 07/17/24 10:53 Oxygen Delivery Method Room Air 07/17/24 10:53 BMI result Body Mass Index 21.9 Skin Other: Pannus grade 2 with no active rash. Evidence of some mild skin thickening within the fold, consistent with recurrent dermatitis. Assessment & Plan Assessment & Plan (1) S/P laparoscopic sleeve gastrectomy: Code(s): Z98.84 - Bariatric surgery status Category: Surgical Plan: Patient will continue current meal plan. Exercise as she is able given her ankle pain. She waiting to be scheduled to follow up with the orthopedic physician. She will also discuss with her primary care physician possible referral to [facility] for her ongoing back pain. Return to the office for 18 month postop visit. Encouraged to text weight weekly and with any questions or concerns. (2) Excess skin: Code(s): L98.7 - Excessive and redundant skin and subcutaneous tissue Category: Medical Plan: Patient has had recurrent dermatitis, treated with antifungal medications. 2-3 times per month. We will continue to monitor closely. She will alert me if the antifungal is no longer working at which point consideration for adding topical steroid. Given the fact that she has had excessive weight loss, recurrent dermatitis. She has maintained a stable and healthy weight. We will follow clinically and submit to her insurance at approximately 18 months postoperatively for medically necessary skin removal surgery of the abdomen.
[2024-07-17 10:53] VITALS: BP 98/63; PULSE 79; TEMP 36.5; O2SAT 98; BMI 21.9
== END 2024-07-17 11:25 | disposition home or self-care (01) ==
PROVIDERS: Visit Provider Physician Assistant Surgical
DX: L98.7 Excessive and redundant skin and subcutaneous tissue (principal); Z90.3 Acquired absence of stomach [part of]; Z98.84 Bariatric surgery status
CPT/HCPCS: 99213; G2211

== ENCOUNTER → 2024-07-17 10:44 | Outpatient (BNVA) | payer MEDICARE, MEDICAID, SELFPAY | PROVIDERS: Visit Provider Physician Assistant Surgical | DX: L98.7 Excessive and redundant skin and subcutaneous tissue (principal); Z98.84 Bariatric surgery status | CPT/HCPCS: 99212 ==

== ENCOUNTER 2024-10-23 09:38 | Outpatient (AMB) | payer MEDICARE, MEDICAID, SELFPAY ==
--- NOTE | 2024-10-23 10:12 | A.OFFVIS_ITS ---
VS Expanded 10/23/24 10:17 BP 114/64 Blood Pressure Location Rt brachial Blood Pressure Position Sitting Pulse 64 Pulse Source Pulse Oximeter Temp 97.1 F Temperature Source Temporal Artery Scan Pulse Oximetry 99 Oxygen Delivery Method Room Air Height 5 ft 1 in Weight 121 lb 6.4 oz BMI 22.9 Body Fat % 26.0 Body Fat Mass 31.6 Fat Free Mass 89.8 Visceral Fat Rating 4.0 Body Water % 52.7 Body Water Mass 64.0 Muscle Mass/Score 85.0 Basal Metabolic Rate/Score 1,210 Intake Visit Reasons: (ov) PO LSG 05/07/23 Renewal Specialist Required: Yes Renewal Specialist Services: Renewal Specialist Present Renewal Specialist Name: hospital [facility] Allergies sertraline [From ZOLOFT] Allergy (Intermediate, Verified 10/23/24 10:14) flushing/feels hot dust,pollen,mold Allergy (Mild, Uncoded 02/13/24 14:55) Itchy Eyes Medication List - Last Reconciled 10/23/24 by PRITESH Knight acetaminophen 1,000 mg PO Q8H PRN bupropion HCl XL (Wellbutrin XL) 300 mg PO QAM buspirone 20 mg PO DAILY@1800 calcium carbonate (Oyster Shell Calcium) 500 mg PO BID clotrimazole 1% (Antifungal (clotrimazole)) 1 appl topical BID diphenhydramine HCl (Banophen) 25 mg PO TID PRN docusate sodium (Colace) 100 mg PO DAILY fexofenadine 180 mg PO BID fluticasone propionate 110 mcg/actuation 2 puffs inhalation BID fluticasone propionate 50 mcg/actuation 1 spray intranasal DAILY melatonin 3 mg PO BEDTIME multivitamin 1 tab PO DAILY sennosides (senna) 17.2 mg (2 x 8.6 mg) PO BEDTIME topiramate 50 mg PO BID HPI Comments Details: This?a?49?yo female who is s/p LSG without hiatal hernia repair on?05/07/2023. Presents for 1 year 6 month post op visit. Weight today is 121.4 pounds, with a BMI of 22.9. There has been a 73.4 pound weight loss,(initial weight 194.8 pounds) since starting the program on 12/20/2022 reflecting a 37.6 % total body weight loss and a weight loss of 45.1 pounds since surgery (operative weight 166.5 pounds) reflecting a 27 % TBWL since surgery. No complaints of nausea, emesis, abdominal pain or reflux. States that she sometimes is hungry after dinner. She states that she is having difficulty with excess skin of her abdomen and arms. This causes rash as well as discomfort with pain and itching. She does get an odor underneath her abdominal fold and in the groin area. This causes increased hygiene demand. She would have to shower at least twice per day. With regard to her arms, this causes discomfort with exercise and ill fitting clothing as a result of the excess skin. She has been using the prescribed clotrimazole with efficacy although recurrence if she stops using it. This occurrs about 2-3 times per month. She has also marielena increasing the number of times she is showering to keep the area clean. Additionally, she has been experiencing increasing midthoracic back pain. This caused so much discomfort that she went to see her primary care physician and an x-ray was obtained. Back pain persists and she likely will be referred to a behavior management specialist. There is concern that the excess skin is contributing to her low back pain. She has had an 80 lb weight loss since starting the program. Taking bariatric fusion MVI and dm + D. She states she is not doing the shake in the morning but rather using 2 eggs. Present meal plan includes: 9-11 am premier protein (1 scoop) w 8 oz almond milk noon meal 4 forks protein and 4 forks veg 2-4 pm and other 1 scoop shake 7 pm meal 4 forks protein and 4 forks veg. Drinking 40-60 oz water Exercise routine includes: walking outside daily 30-60 min has membership Any post op complications: none CHARLES: never DM: never HTN: never Hyperlipidemia: improved GERD:?0-5 scale ??0 = no symptoms ??1 = symptoms noticeable but not bothersome 2 =symptoms bothersome but not daily ? 3 = symptoms bothersome and daily 4 = symptoms affect daily activities 5 = symptoms are incapacitating, unable to do daily activities ? How bad is the heartburn: 0 ? Heartburn while lying down: 0 ? Heartburn when standing up: 0 ? Heartburn after meals: 0 ? Does heartburn change your diet: 0 ? Does heartburn wake you up from sleep: 0 ? Do you have difficulty swallowin ? Do you have pain with swallowin ? If you take medicine for your reflux, does this affect your daily life: 0 Satisfaction with present condition - satisfied or not satisfied: satisfied [facility] Medical History BMI 32.0-32.9,adult Asthma DJD (degenerative joint disease) Migraines GERD (gastroesophageal reflux disease) Anxiety Depression Hyperlipidemia Surgical History S/P laparoscopic sleeve gastrectomy Hx of tubal ligation Hx of cholecystectomy Family History Mother Arthritis Osteoarthritis High cholesterol Hypertension Diabetes Heart problem Father Liver problem Diabetes Hypertension High cholesterol Social History Household Members: Family Housing: Apartment Are you a primary dialysis patient care technician to a significant other at home: No Do you presently have visiting nurse or other home services: No Alcohol intake: never Patient Tobacco Use Status: Former Tobacco user Tobacco use type: Cigarette service: No Physical Exam Const General: cooperative and no acute distress Orientation/consciousness: patient oriented x3 Resp Effort & Inspection: normal respiratory effort Auscultation: clear to auscultation bilaterally Cardio Rate: regular rate Rhythm: regular rhythm GI Inspection: Yes normal to inspection and Yes incision (well healed) Palpation (GI): Soft to palpation and no masses Skin Other: Excess skin noted of the arms and abdomen. Pannus grade 2 to the abdomen. Left arm does have evidence of inclusion cysts, secondary to excess skin. Umbilicus has minor irritation and slight odor. Under the abdominal pannus there is evidence of chronic skin irritation but no active dermatitis Neuro General: patient oriented x3 Assessment & Plan Assessment & Plan (1) S/P laparoscopic sleeve gastrectomy: Code(s): Z98.84 - Bariatric surgery status Category: Surgical Plan: Check 18 month postop labs. Change meal plan in accordance to her wishes to have less shake product: 9-11 am 2 eggs with 4 forks of vegetables noon meal 4 forks protein and 4 forks veg 2-4 pm and other 1 scoop shake 7 pm meal 4 forks protein and 4 forks veg. Encouraged to return to [employer] fitness gym utilizing the recumbent stationary bike. This is in addition to walking outside. She has been under the care of various physicians for her back pain. Recumbent bike would likely be the most tolerate it. She certainly may consider walking in a pool. (2) Excess skin: Code(s): L98.7 - Excessive and redundant skin and subcutaneous tissue Category: Medical Plan: Given patient's 73.4 lb weight loss or 37.6% total body weight loss, she has developed excess skin of the arms and abdomen. She has had rashes to the abdomen that have been recurrent and recalcitrant to topical antifungal creams. This has been going on for the last 4 months despite appropriate medical treatment. As result, we are recommending medically necessary skin removal surgery of the abdomen. With regards to the excess skin of her arms. This has additionally negatively impacted her ADLs with discomfort and pain as well as rashes. She has had recurrent cysts within the left arm and axillary region. These are worsened by excess skin rubbing and we will be removed at the time of surgery. We will submit to her insurance company for medically necessary skin removal surgery of her abdomen and arms Orders: Orders Hemoglobin A1c Today E78.5 - Hyperlipidemia, unspecified, F41.9 - Anxiety disorder, unspecified, K74.00 - Hepatic fibrosis, unspecified, Z98.84 - Bariatric surgery status Complete Blood Count Auto Diff Today E78.5 - Hyperlipidemia, unspecified, F41.9 - Anxiety disorder, unspecified, K74.00 - Hepatic fibrosis, unspecified, Z98.84 - Bariatric surgery status Vitamin B12 and Folate Today E78.5 - Hyperlipidemia, unspecified, F41.9 - Anxiety disorder, unspecified, K74.00 - Hepatic fibrosis, unspecified, Z98.84 - Bariatric surgery status C Reactive Protein Today E78.5 - Hyperlipidemia, unspecified, F41.9 - Anxiety disorder, unspecified, K74.00 - Hepatic fibrosis, unspecified, Z98.84 - Bariatric surgery status Vitamin B1 Today E78.5 - Hyperlipidemia, unspecified, F41.9 - Anxiety disorder, unspecified, K74.00 - Hepatic fibrosis, unspecified, Z98.84 - Bariatric surgery status TSH reflex Free T4 Today E78.5 - Hyperlipidemia, unspecified, F41.9 - Anxiety disorder, unspecified, K74.00 - Hepatic fibrosis, unspecified, Z98.84 - Bariatric surgery status Insulin Today E78.5 - Hyperlipidemia, unspecified, F41.9 - Anxiety disorder, unspecified, K74.00 - Hepatic fibrosis, unspecified, Z98.84 - Bariatric surgery status Lipid Panel Today E78.5 - Hyperlipidemia, unspecified, F41.9 - Anxiety disorder, unspecified, K74.00 - Hepatic fibrosis, unspecified, Z98.84 - Bariatric surgery status IRON PROFILE Today E78.5 - Hyperlipidemia, unspecified, F41.9 - Anxiety disorder, unspecified, K74.00 - Hepatic fibrosis, unspecified, Z98.84 - Bariatric surgery status Zinc Today E78.5 - Hyperlipidemia, unspecified, F41.9 - Anxiety disorder, unspecified, K74.00 - Hepatic fibrosis, unspecified, Z98.84 - Bariatric surgery status Vitamin A Today E78.5 - Hyperlipidemia, unspecified, F41.9 - Anxiety disorder, unspecified, K74.00 - Hepatic fibrosis, unspecified, Z98.84 - Bariatric surgery status Ferritin Today E78.5 - Hyperlipidemia, unspecified, F41.9 - Anxiety disorder, unspecified, K74.00 - Hepatic fibrosis, unspecified, Z98.84 - Bariatric surgery status Vitamin D 25-OH Total Today E78.5 - Hyperlipidemia, unspecified, F41.9 - Anxiety disorder, unspecified, K74.00 - Hepatic fibrosis, unspecified, Z98.84 - Bariatric surgery status Basic Metabolic Panel Today E78.5 - Hyperlipidemia, unspecified, F41.9 - Anxiety disorder, unspecified, K74.00 - Hepatic fibrosis, unspecified, Z98.84 - Bariatric surgery status
--- OUTSIDE RECORDS SUMMARY | 2024-10-23 10:14 | XMS_ITS | Data Portability ---
Author Organization JENNIFER Maxime Barakat [facility], [facility] Address [address] [place] [address] Care Team Providers Care Senior [email or web address] Developer Name Role Phone AMBREEN PANDYA Referring Provider [phone] Assessment Encounter Date Assessment Date Assessment LastModified by Organization Details LastModified Time 03/18/2024 03/18/2024 Assessment: Smal l improvement with DF flexion but c/o pain over anterior and medial aspect of ankle during and after DF PROM. Able to perform WBing and strengthening exercises without increased pain or sxs. 03/18. Ongoing tight DF ROM. Good strength with increased PREs. Plan: Continue Rx to progress ROM and strength as tolerated. Recheck with MD on 04/03/24. [email or web address] Not available 03/18/2024 18:39:28 03/25/2024 03/25/2024 Assessment: Pt reports some increased pain with wobble board stretching.Ongoing limited DF. Good tolerance to all ther-ex. Plan: Continue Rx to progress ROM and strength as tolerated. Recheck with MD on 04/03/24. [email or web address] Not available 03/25/2024 15:54:28 03/31/2024 03/31/2024 Assessment: Pt with improved L ankle mobility and strength but decreased balance. Pt continues to c/o discomfort over anterior aspect of her foot with IV & EV ROM. Reviewed HEP. All questions and concerns were addressed and answered. Plan: D/c to independent HEP. Recheck with MD on 04/03/24 for updated order. 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 She was last seen 3 months ago. At her last visit she had a corticosteroid injection. She reports this gave her about 1 week of symptom relief. She has been doing physical therapy. This has been helpful for motion. Otherwise she still has pain daily with activity. Rates it as a 10 out of 10 at times. Feels like it is deep in the ankle joint. She is considering surgical intervention. Lives in [place], disabled and out of work, nondiabetic, non-smoker Past family history, medical history, social history, allergies, and review of systems has been reviewed, updated and are located in the patient's chart. PHYSICAL EXAM: Constitutional: Healthy appearing individual in no acute distress Psychiatric: Alert and oriented Respiratory: Unlabored breathing Lymphatic: No lymphadenopathy in the foot/ankle Skin: No open wounds CV: Palpable pedal pulses Neuro: Light touch grossly intact MSK: Focused examination of the left foot and ankle- On standing exam ankle and foot alignment are appropriate. No gross deformity. On seated exam her skin is intact. Mild periarticular swelling about the ankle. No ecchymosis or signs of trauma. Her ankle is thin and her soft tissue envelope is thin at the lateral ankle. There is heterotopic bone at the lateral ankle which is palpable which is tender to her. She has a 20 degree arc of motion at the ankle which is nonpainful. Hard stop at about neutral dorsiflexion which is painful. Tender over the gutters as well as anterior ankle. She does have some crepitus with range of motion. Slightly limited hindfoot range of motion compared to the contralateral side. Stable ligamentous exam. Motor exam- intact dorsiflexion/plant arflexion, inversion/eversion Sensory exam- reports sensation intact to light touch SP/DP/S/S/T distributions Palpable DP/PT pulses, foot warm and well perfused, appropriate capillary refill Calf is soft, supple, non-tender IMAGING: Prior weightbearing x-rays of the left foot and ankle reviewed. Patient had a prior PER mechanism fibula fracture which has healed in a shortened position with mild varus. Fracture appears well-healed. She likely also had a syndesmotic injury. There is synostosis with heterotopic bone formation at the syndesmosis. Mature callus at the lateral fibula. She has posttraumatic ankle arthritis with degenerative change of the tibiotalar joint and anterior osteophyte formation. No acute bony abnormality. Foot is well aligned. 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 Continues to be symptomatic despite conservative measures. She is considering surgical intervention in the future. She has had a chance to think and read more about ankle fusion versus ankle replacement. She would like to be considered for an ankle replacement. She would consider doing this sometime in 2024. I ordered a CT scan today with prophecy for in bone total ankle replacement. We will see her back after the CT scan is complete for further discussion. Patient agrees with the plan, all questions answered. Speech recognition hooker on software was used to create portions of this document. An attempt at proofreading has been made to minimize errors. Please call for corrections. 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 Last seen by me in March. CT scan was completed in April. Here today with her . Symptoms largely unchanged. Has pain in the ankle joint with activity that she feels limits her. She is getting frustrated with conservative measures and is considering surgery. Lives in [place], disabled and out of work, nondiabetic, non-smoker Past family history, medical history, social history, allergies, and review of systems has been reviewed, updated and are located in the patient's chart. PHYSICAL EXAM: Constitutional: Healthy appearing individual in no acute distress Psychiatric: Alert and oriented Respiratory: Unlabored breathing Lymphatic: No lymphadenopathy in the foot/ankle Skin: No open wounds CV: Palpable pedal pulses Neuro: Light touch grossly intact MSK: Focused examination of the left foot and ankle- On standing exam ankle and foot alignment are appropriate. No gross deformity. On seated exam her skin is intact. Mild periarticular swelling about the ankle. No ecchymosis or signs of trauma. Her ankle is thin and her soft tissue envelope is thin at the lateral ankle. There is heterotopic bone at the lateral ankle which is palpable which is tender to her. She has a 20 degree arc of motion at the ankle with crepitus. Pain at extremes of motion. No pain centrally. Hard stop at about neutral dorsiflexion which is painful. Tender over the gutters as well as anterior ankle. Slightly limited hindfoot range of motion compared to the contralateral side. Stable ligamentous exam. Motor exam- intact dorsiflexion/plant arflexion, inversion/eversion Sensory exam- reports sensation intact to light touch SP/DP/S/S/T distributions Palpable DP/PT pulses, foot warm and well perfused, appropriate capillary refill Calf is soft, supple, non-tender IMAGING: Prior weightbearing x-rays of the left foot and ankle reviewed. Patient had a prior PER mechanism fibula fracture which has healed in a shortened position with mild varus. Fracture appears well-healed. She likely also had a syndesmotic injury. There is synostosis with heterotopic bone formation at the syndesmosis. Mature callus at the lateral fibula. She has posttraumatic ankle arthritis with degenerative change of the tibiotalar joint and anterior osteophyte formation. No acute bony abnormality. Foot is well aligned. CT scan with prophecy protocol dated 05/18/2024 (Rayus reviewed.) Advanced degenerative change of the ankle joint. Concentric alignment. No significant bone loss or subchondral cysts. ASSESSMENT: Hx of left ankle fracture 1990s with posttraumatic ankle arthritis, syndesmosis synostosis, heterotopic bone formation PLAN: We discussed the diagnosis, treatment to date, and the plan moving forward. She is growing frustrated conservative measures. She is considering surgery. Again reviewed treatment options. She is leaning towards ankle replacement. We will need to get her CT scan reactivated and prophecy protocol set up. She was provided with information regarding total ankle replacement versus ankle arthrodesis. She will consider her options. Will see her back once the plan is protocoled. Patient agrees with the plan, all questions answered. Speech recognition hooker on software was used to create portions of this document. An attempt at proofreading has been made to minimize errors. Please call for corrections. [email or web address] Not available 10/13/2024 20:34:23 Plan of Treatment Reminders Order Date Submit Date Provider Last Modified By Organization Details Last Modified Time Details Appointments None recorded. Lab None recorded. Referral None recorded. Procedures None recorded. Surgeries None recorded. Imaging CT, lower extremity, w/o contrast - CT LEFT ANKLE PHROPHECY -INBONE LEFT ANKLE ARTHRITIS 2023 024 [facility] [place], Replaced by [facility] [address], [address], 11:47:17 Medication Orders None recorded. Patient TargetsNo targets recorded. Patient InstructionsNo instructions recorded. Reason for Referral None Reported. Results Created Date Observation Date Name Description Value Unit Range Abnormal Flag Note LastModifiedBy Organization Detail LastModifiedTime 05/18/20 24 05/18/2024 CT, lower extre mity, w/o contr ast No observ ation record ed. [email or web address] [facility] [place] [address] [address], [place], [address], 05/22/2024 16:51:19 05/18/20 24 05/18/2024 CT, lower extre mity, w/o contr ast No observ ation record ed. [facility] [address], [address], 05/18/2024 13:23:07 Result Notes None recorded. Problems Name Problem SNOMED Code Status Onset Date Resolution Date Notes Provider Name and Address Organization Details Recorded Time Pain of left ankle joint 22900876282218 103 Active 2023 KAYLIA L'HEUREUX [place], [place] - [facility] 4 15:05:14 Fracture of ankle 30302333 Active 2023 KAYLIA L'HEUREUX [place] - [facility] 4 15:21:56 Traumatic arthropath y-ankle 053282034 Active 2023 Stephen Sibley MD [address] [facility] [address], [place], [address] , [facility] - [facility] 4 16:43:18 Problem Notes None recorded. Procedures Surgical History Date Name Laterality Status Provider Name and Address Organization Details Recorded Time 56273 Therapeutic Exercise (1:1) completed Ole Carias DPT [address], [place], [address], [facility] 03/31/2024 09:21:23 4 74770 Therapeutic Exercise (1:1) completed Ole Carias DPT [address], [place], [address], [facility] 03/25/2024 15:51:30 4 96172: Manual therapy completed Ole Carias DPT [address], [place], [address], [facility] 03/25/2024 15:51:33 03951 Therapeutic Exercise (1:1) completed Ole Carias DPT [address], [place], [address], [facility] 03/18/2024 18:37:03 4 20012: Manual therapy completed Ole Carias DPT [address], [place], [address], [facility] 03/18/2024 18:39:36 60103 Therapeutic Exercise (1:1) completed Ole Carias DPT [address], [place], [address], [facility] 03/16/2024 18:28:36 86444: Manual therapy completed Ole Carias DPT [address], [place], [address], [facility] 03/13/2024 21:04:28 58632 Therapeutic Exercise (1:1) cancelled Lelia Aponte PTA [address], [place], [address], [facility] 03/10/2024 12:07:44 40210: Hot or Cold Pack cancelled Lelia Dare, UNDERTAKER HELPER [address], [place], [address], [facility] 03/10/2024 12:07:43 4 28114: Manual therapy cancelled Lelia Dare, UNDERTAKER HELPER [address], [place], [address], [facility] 03/10/2024 12:07:44 4 93887 Therapeutic Exercise (1:1) completed Lelia Dare, UNDERTAKER HELPER [address], [place], [address], [facility] - [facility] 03/06/2024 13:16:24 4 68532: Hot or Cold Pack completed Lelia Saldañay, UNDERTAKER HELPER [address], [place], [address], [facility] 03/09/2024 16:15:52 4 95820: Manual therapy completed Lelia Saldañay, UNDERTAKER HELPER [address], [place], [address], [facility] 03/06/2024 13:16:24 42211 Therapeutic Exercise (1:1) cancelled Lelia Dare, UNDERTAKER HELPER [address], [place], [address], [facility] 03/05/2024 11:59:32 42747: Hot or Cold Pack cancelled Lelia Dare, UNDERTAKER HELPER [address], [place], [address], [facility] 03/05/2024 11:59:32 91093: Manual therapy cancelled Lelia Dare, UNDERTAKER HELPER [address], [place], [address], [facility] 03/05/2024 11:59:32 72028 Therapeutic Exercise (1:1) completed Lelia Dare, UNDERTAKER HELPER [address], [place], [address], [facility] 03/04/2024 19:52:29 4 29215: Hot or Cold Pack completed Lelia Aponte PTA [address], [place], [address], [facility] 03/03/2024 12:04:34 4 02975: Manual therapy completed Lelia Aponte PTA [address], [place], [address], [facility] 03/03/2024 12:04:35 4 99417 Therapeutic Exercise (1:1) completed Ole Carias DPT [address], [place], [address], [facility] 02/27/2024 18:54:52 4 46699: Hot or Cold Pack completed Ole Carias DPT [address], [place], [address], [facility] 02/25/2024 19:32:04 4 25181: Manual therapy completed Ole Carias DPT [address], [place], [address], [facility] 02/25/2024 19:32:04 4 80888 Therapeutic Exercise (1:1) completed Ole Carias DPT [address], [place], [address], [facility] 02/19/2024 14:40:01 4 69253: Hot or Cold Pack completed Ole Carias DPT [address], [place], [address], [facility] 02/19/2024 14:40:22 4 77106: Manual therapy completed Ole Carias DPT [address], [place], [address], [facility] 02/19/2024 14:40:11 4 49894 Therapeutic Exercise (1:1) completed Ole Carias DPT [address], [place], [address], [facility] 02/17/2024 20:29:56 4 07079: Low complexity PT Eval completed Ole Carias DPT [address], [place], [address], [facility] 02/17/2024 20:30:03 4 Ankle Joint Asp & Inj, L/R Celestone 2cc completed Stephen Sibley MD [address], [place], [address], [facility] 12/26/2023 14:24:58 Imaging Results None recorded. Procedure Notes None recorded. Medical Equipment None Reported. Allergies Allergen ID Allergen Name Allergen Category Reaction Reaction Severity Criticality Documentation Date Start Date Code Code System Note Provider Name and Address Organization Details Recorded Time 845659 Zoloft medicatio n Not available Not available Not available 10/22/2023 36822 RxNorm KAYLIA L'HEUREUX [facility] 4 15:02:10 Medications Name Sig Start Date Stop Date Status Note LastModified by Organization Details LastModified Time vitamin d3 125 mcg (5000 ut) caps active Not Available Not Available Not Available multivitami n tablet TAKE 1 TABLET BY MOUTH EVERY DAY active Not Available Not Available No t Available bupropion HCl SR 150 mg tablet,12 hr sustained-r elease TAKE 1 TABLET BY MOUTH TWICE A DAY EVERY MORNING AND AFTERNOON 10/21 completed Not Available Not Available Not Available acetaminoph en 325 mg tablet TAKE 1 TABLET BY MOUTH EVERY 4 HOURS NEEDED FEVER active Not Available Not Available No t Available Carafate 100 mg/mL oral suspension 10 ML ORALLY 2 TIMES A DAY 10/21 completed Not Available Not Available Not Available ketotifen 0.025 % (0.035 %) eye drops INSTILL 1 DROP IN EACH EYE UP TO TWICE A DAY NEEDED active Not Available Not Available No t Available senna 8.6 mg tablet TAKE 2 TABLETS BY MOUTH AT BEDTIME FOR 90 DAYS active Not Available Not Available No t Available clobetasol 0.05 % topical cream APPLY TWICE A DAY, NEEDED. AVOID USE ON THE FACE/NECK /GROIN active Not Available Not Available No t Available melatonin 3 mg tablet TAKE 1 TABLET BY MOUTH EVERYDAY AT BEDTIME active Not Available Not Available No t Available fexofenadin e 180 mg tablet TAKE 1 TABLET BY MOUTH EVERY DAY NEEDED active Not Available Not Available No t Available aspirin 81 mg tablet,jonh yed release TAKE 1 TABLET BY MOUTH EVERY DAY 10/21 completed Not Available Not Available Not Available acetaminoph en 500 mg tablet TAKE 2 TABLETS BY MOUTH EVERY 8 HOURS NEEDED FOR PAIN active Not Available Not Available No t Available calcium 500 mg (as calcium carbonate 1,250 mg) tablet TAKE 1 TABLET BY MOUTH TWICE A DAY active Not Available Not Available No t Available bisacodyl 10 mg rectal suppository UNWRAP AND INSERT 1 SUPPOSITO RY RECTALLY DAILY active Not Available Not Available No t Available pantoprazol e 40 mg tablet,jonh yed release TAKE 1 TABLET BY MOUTH DAILY 10/21 completed Not Available Not Available Not Available Banophen 25 mg tablet TAKE 1 TABLET BY MOUTH 3 TIMES A DAY NEEDED FOR HIVES active Not Available Not Available No t Available nystatin 100,000 unit/gram topical cream APPLY TO AFFECTED AREA TWICE A DAY active Not Available Not Available No t Available buspirone 10 mg tablet TAKE 1 TABLET BY MOUTH EVERY MORNING 1 TABLET EVERY AFTERNOON , 2 TABLETS AT BEDTIME. active Not Available Not Available No t Available docusate sodium 100 mg capsule TAKE 1 CAPSULE BY MOUTH TWICE A DAY WITH PLENTY OF WATER TO PREVENT CONSTIPAT ION active Not Available Not Available No t Available Banophen 25 mg capsule TAKE 1 CAPSULE BY MOUTH EVERY DAY NEEDED ALLERGY SYMPTOMS active Not Available Not Available No t Available epinephrine 0.3 mg/0.3 mL injection, auto-inject or INJECT 0.3 MG INTRAMUSC ULARLY ONCE active Not Available Not Available No t Available estradiol 0.01% (0.1 mg/gram) vaginal cream APPLY 1 GRAM VAGINALLY EVERY SATURDAY, SATURDAY , AND SATURDAY AT NIGHT active Not Available Not Available No t Available Nasal Decongestan t (pseudoephe drine) 30 mg tablet TAKE 1 TABLET BY MOUTH EVERY 6 HOURS NEEDED FOR CONGESTIO N active Not Available Not Available No t Available ondansetron 4 mg disintegrat ing tablet PLEASE SEE ATTACHED FOR DETAILED DIRECTION S 10/21 completed Not Available Not Available Not Available fluticasone propionate 50 mcg/actuati on nasal spray,suspe nsion USE 2 SPRAYS IN EACH NOSTRIL EVERY DAY active Not Available Not Available No t Available clotrimazol e 1 % topical cream APPLY TOPICALLY 2 TIMES A DAY active Not Available Not Available No t Available cholecalcif marilyn (vitamin D3) 125 mcg (5,000 unit) capsule TAKE 1 CAPSULE BY MOUTH EVERY DAY 10/21 completed Not Available Not Available Not Available loratadine 10 mg tablet TAKE 1 TABLET BY MOUTH EVERY DAY active Not Available Not Available No t Available fluticasone propionate 110 mcg/actuati on HFA aerosol inhaler TAKE 2 PUFFS BY MOUTH TWICE A DAY active Not Available Not Available No t Available mometasone 0.1 % topical cream APPLY TO AFFECTED AREA TWICE A DAY NEEDED active Not Available Not Available No t Available nabumetone 500 mg tablet TAKE 2 TABLETS BY MOUTH EVERY DAY WITH FOOD NEEDED FOR PAIN 10/21 completed Not Available Not Available Not Available Ventolin HFA 90 mcg/actuati on aerosol inhaler INHALE 2 PUFFS BY MOUTH EVERY 6 HOURS NEEDED FOR WHEEZING active Not Available Not Available No t Available Pain Reliever Plus 250 mg-250 mg-65 mg tablet TAKE 2 TABLETS BY MOUTH EVERY 6 HOURS NEEDED FOR HEADACHE active Not Available Not Available No t Available bupropion HCl XL 300 mg 24 hr tablet, extended release TAKE 1 TABLET BY MOUTH EVERY DAY IN THE MORNING active Not Available Not Available No t Available topiramate 50 mg tablet TAKE 1 TABLET BY MOUTH TWICE A DAY active Not Available Not Available No t Available vitamin B complex-fol ic acid 0.4 mg tablet TAKE 1 TABLET BY MOUTH EVERY DAY active Not Available Not Available No t Available diclofenac 1 % topical gel APPLY TO AFFECTED AREA 4 TIMES A DAY active Not Available Not Available No t Available Purelax 17 gram oral powder packet PLEASE SEE ATTACHED FOR DETAILED DIRECTION S active Not Available Not Available No t Available lidocaine 5 % topical ointment APPLY TOPICALLY 3 TIMES A DAY NEEDED FOR MODERATE PAIN, WASH HANDS THOROUGHL Y AFTER APPLICATI ON active Not Available Not Available No t Available riboflavin (vitamin B2) 400 mg tablet TAKE 1 TABLET BY MOUTH EVERY DAY 06/04 /2024 completed Not Available Not Available Not Available Vitals Date Recorded Body height Body mass index (BMI) Body weight Provider Name and Address Organization Details Last Updated DateTime 10/13/2024 154.94 cm 23.8 kg/m2 73227.64 g Babsnate Landa [facility] 10/13/2024 15:41:45 Date Recorded Body height Body mass index (BMI) Body weight Provider Name and Address Organization Details Last Updated DateTime 04/03/2024 154.94 cm 23.8 kg/m2 69281.64 g Sabrina Gene [facility] 04/03/2024 12:36:57 Social History Question Answer Notes LastModified by Sencha Details LastModified Time Tobacco Smoking Status Never Smoker JOJO mcmullen [facility] 10/22/2023 15:04:53 What Is Your Relationship Status? Information not available 10/22/2023 Sex: Unknown Functional Status Question Answer Note LastModified by Sencha Details LastModified Time Do you use any illicit or recreational drugs? No Information not available 10/22/2023 Do you or have you ever used any other forms of tobacco or nicotine? No Information not available 10/22/2023 What is your level of alcohol consumption? None Information not available 10/22/2023 Mental Status None recorded. Family History Nothing Reported. Medical History Condition Response Allergies/Hayfever N Coronary Artery Disease N Anxiety/Depression N Breathing or lung disorders N Emphysema N Nerve Disorders N Thyroid Problems N COPD N Pacemaker N Anemia N Kidney/Bladder Problems N Vascular Disease N Heart Trouble N Heart Attack (MS) N Gastrointestinal Disease N Cholesterol N Diabetes N Autoimmune disease N Bleeding Disorder N Orthotics N Arthritis N Seizures/Epilepsy N Blood Clot N AIDS/HIV N Congestive Heart Failure (CHF) N Acid Reflux (GERD) N Cancer N Stroke N Asthma N Circulation Problems N Peripheral Vascular Disease N Sleep Apnea N Hepatitis N Heart Disease N Rheumatoid Arthritis N Arrhythmia N Pulmonary Embolism N Headaches N Fibromyalgia N Hypertension N Osteoporosis N Gynecological HistoryNo gynecological history recorded. Obstetrics History GPAL:G 0 P 0 0 0 0 Past Encounters Encounter ID Performer Location Encounter Start Date Encounter Closed Date Diagnosis/Indication Diagnosis SNOMED-CT Code Diagnosis ICD10 Code Diagnosis Note [id number] Harmony Inman PA-C [facility] [address] [place] [address] 10/22/2023 14:29:26 11/13/2023 14:14:19 Pain of left ankle joint 9794476459 9965759 M25.971 [id number] Stephen Sibley MD [facility] [address] [place] [address] 10/25/2023 14:22:14 12/03/2023 10:16:01 Pain of left ankle joint 8850892808 0852491 M25.572 Traumatic arthropathy-ankle 402823983 M12.163 [id number] Stephen Sibley MD [facility] [address] [place] [address] 12/26/2023 12:42:52 01/15/2024 14:21:52 Pain of left ankle joint 9217536137 2524265 M25.572 Fracture of ankle 171568 01 S82.92XA Traumatic arthropathy-ankle 645897124 M12.959 [id number] Ole Carias DPT [facility] [address] [place] [address] 02/17/2024 14:51:04 02/17/2024 16:45:49 Ankle pain 241047720 M25.027 [id number] Ole Carias DPT [facility] [address] [place] [address] 02/19/2024 13:59:23 02/19/2024 15:19:21 Ankle pain 102042590 M25.933 [id number] Ole Carias DPT [facility] [address] [place] [address] 02/27/2024 15:19:48 02/27/2024 16:40:12 Ankle pain 067144914 M25.369 [id number] Lelia Aponte UNDERTAKER HELPER [facility] [address] [place] [address] 03/04/2024 12:46:49 03/04/2024 13:50:17 Ankle pain 721706640 M25.291 [id number] Lelia Dare, UNDERTAKER HELPER [facility] [address] [place] [address] 03/09/2024 14:43:51 03/09/2024 16:20:04 Ankle pain 728976153 M25.476 [id number] Ole Carias DPT [facility] [address] [place] [address] 03/16/2024 14:36:09 03/16/2024 15:45:11 Ankle pain 999913271 M25.971 [id number] Ole Carias DPT [facility] [address] [place] [address] 03/18/2024 14:27:22 03/18/2024 17:09:49 Ankle pain 636782159 M25.938 [id number] Ole Carias DPT [facility] [address] [place] [address] 03/25/2024 14:44:49 03/25/2024 16:15:36 Ankle pain 521732909 M25.948 [id number] Ole Carias DPT [facility] [address] [place] [address] 03/31/2024 08:16:28 03/31/2024 11:05:46 Ankle pain 749731029 M25.664 [id number] MD Deisi Persaud [address] [place] [address] 04/03/2024 12:32:28 04/23/2024 08:48:23 Pain of left ankle joint 8280718802 8244005 M25.572 Fracture of ankle 439964 01 S82.92XA Traumatic arthropathy-ankle 233281771 M12.850 [id number] Stephen Sibley MD [facility] [address] [place] [address] 10/13/2024 14:34:53 10/22/2024 09:04:42 Pain of left ankle joint 5941015326 6518085 M25.572 Fracture of ankle 328541 01 S82.92XA Traumatic arthropathy-ankle 560794535 M12.579 Health Concerns Section Related Observation LastModified by Organization Detai ls LastModified Time None Recorded Concern Status LastModified by Organization Details LastModified Time None Recorded Advance Directives Directive None Recorded Payers Encounter Date Sequence Insurance Name Policy Number Policy Hinds Covered Member ID Hinds Member ID Guarantor Name 03/18/2024 2 [facility]MEDICA[facility] H[facility]) [id number] Karie G G Wai de Sutton [id number] Karie G Wai [place] 03/25/2024 2 [facility] (MEDICAID HMO) [id number] Karie G G [place] [id number] Karie G Wai de [place] 03/31/2024 2 [facility] (MEDICAID HMO) [id number] Karie G G [place] [id number] Karie G Wai de [place] 03/31/2024 2 [place] Karie G Wai de [place] [id number] Karie G Wai de [place] 04/03/2024 2 [place] Karie G Wai de [place] [id number] Karie G Wai de [place] 10/13/2024 1 [employer] (MEDICARE REPLACEMENT/AD VANTAGE - PPO) [id number] Karie G Wai de [place] [id number] Karie G Wai de [place] 10/13/2024 2 [place] Karie G Wai [place] [id number] Karie G Wai de [place] Notes Date Note Type Note Provider Name and Address Organization Details Recorded Time 03/18/2024 text/html Patient presents today reporting 6/10 pain. Pt states her knee and ankle is sore. Ole Carias DPT [address], [place], [address], [facility] 03/18/2024 18:39:48 03/25/2024 text/html Patient presents today reporting 0/10 pain but had some increased pain yesterday due to a cold weather. Ole Carias DPT [address], [place], [address], [facility] 03/25/2024 15:54:58 03/31/2024 text/html Patient presents today reporting 3/10 pain. Pt states her ankle is sore today because of the cold weather. Pt feels PT helps and able to move her ankle better now. Ole Carias, DPT [address] [facility] [address], [place], [address], [facility] 03/31/2024 09:24:34 OBGyn Episode No OBEpisode recorded.
[2024-10-23 10:17] VITALS: BP 114/64; PULSE 64; TEMP 36.2; O2SAT 99; BMI 22.9
== END 2024-10-23 10:58 | disposition home or self-care (01) ==
LOC: HO.HBS 09:38
PROVIDERS: Visit Provider Physician Assistant Surgical
DX: L98.7 Excessive and redundant skin and subcutaneous tissue (principal); Z90.3 Acquired absence of stomach [part of]; Z98.84 Bariatric surgery status
CPT/HCPCS: 99214; G2211

== ENCOUNTER → 2024-10-23 09:38 | Outpatient (BNVA) | payer MEDICARE, MEDICAID, SELFPAY | PROVIDERS: Visit Provider Physician Assistant Surgical | DX: L98.7 Excessive and redundant skin and subcutaneous tissue (principal); K74.00 Hepatic fibrosis, unspecified; E78.5 Hyperlipidemia, unspecified; F41.9 Anxiety disorder, unspecified; Z68.22 Body mass index [BMI] 22.0-22.9, adult; Z90.3 Acquired absence of stomach [part of]; Z98.84 Bariatric surgery status | CPT/HCPCS: 99212 ==

== ENCOUNTER 2024-11-05 08:53 | Outpatient (REF) | payer MEDICARE, MEDICAID, SELFPAY ==
[2024-11-05 09:20] LABS: MANUAL DIFF FLAG NO
--- OUTSIDE RECORDS SUMMARY | 2024-11-05 09:27 | XMS_ITS | Data Portability ---
Author Organization JENNIFER Maxime Barakat [facility], [facility] Address [address] [place] [address] Care Team Providers Care Case Assembler Name Role Phone AMBREEN PANDYA Referring Provider [phone] Assessment Encounter Date Assessment Date Assessment LastModified [...] as tolerated. Recheck with MD on 04/03/24. [email or web address] Not available 03/18/2024 18:39:28 03/25/2024 03/25/2024 Assessment: Pt reports some increased pain with wobble board stretching.Ongoing limited DF. Good tolerance to all ther-ex. Plan: Continue Rx to progress ROM and strength as tolerated. Recheck with MD on 04/03/24. [email or web address] Not available 03/25/2024 15:54:28 03/31/2024 03/31/2024 Assessment: Pt with improved L ankle mobility and strength but decreased balance. Pt continues to c/o discomfort over anterior aspect of her foot with IV & EV ROM. Reviewed HEP. All questions and concerns were addressed and answered. Plan: D/c to independent HEP. Recheck with MD on 04/03/24 for updated order. [email or web address] Not available 03/31/2024 09:22:37 04/03/2024 04/03/2024 Foot [...] She is considering surgical intervention. Lives in [place], disabled and out of work, nondiabetic, non-smoker [...] the plan, all questions answered. Speech recognition child care coordinator software was used to create portions of this document. An attempt at proofreading has been made to minimize errors. Please call for corrections. Not available 04/07/2024 20:07:18 10/13/2024 10/13/2024 Foot [...] measures and is considering surgery. Lives in [place], disabled and out of work, nondiabetic, non-smoker [...] the plan, all questions answered. Speech recognition child care coordinator software was used to create portions of this document. An attempt at proofreading has been made to minimize errors. Please call for corrections. Not available 10/13/2024 20:34:23 Plan of Treatment Reminders Order Date Submit Date Provider Last Modified By Organization Details Last Modified Time Details Appointments None recorded. Lab None recorded. Referral None recorded. Procedures None recorded. Surgeries None recorded. Imaging CT, lower extremity, w/o contrast - CT LEFT ANKLE PHROPHECY -INBONE LEFT ANKLE ARTHRITIS 2023 024 [facility] [place], [facility] [address], [address], 11:47:17 Medication Orders None recorded. Patient TargetsNo targets recorded. Patient InstructionsNo instructions recorded. Reason for Referral None Reported. Results Created Date Observation Date Name Description Value Unit Range Abnormal Flag Note LastModifiedBy Organization Detail LastModifiedTime 05/18/20 24 05/18/2024 CT, lower extre mity, w/o contr ast No observ ation record ed. [facility] [place] [address] [address], [place], [address], 05/22/2024 16:51:19 05/18/20 24 05/18/2024 CT, lower extre mity, w/o contr ast No observ ation record ed. [facility] [address], [address], 05/18/2024 13:23:07 Result Notes None recorded. Problems Name Problem SNOMED Code Status Onset Date Resolution Date Notes Provider Name and Address Organization Details Recorded Time Pain of left ankle joint 35023744999765 103 Active 2023 KAYLIA L'HEUREUX [place], [place] - [facility] 4 15:05:14 Fracture of ankle 33770481 Active 2023 KAYLIA L'HEUREUX [place] - [facility] 4 15:21:56 Traumatic arthropath y-ankle 684620261 Active 2023 Stephen Sibley MD [address] [facility] [address], [place], [address] , [facility] - [facility] 4 16:43:18 Problem Notes None recorded. Procedures Surgical History Date Name Laterality Status Provider Name and Address Organization Details Recorded Time 61509 Therapeutic Exercise (1:1) completed Ole Carias DPT [address], [place], [address], [facility] 03/31/2024 09:21:23 4 52196 Therapeutic Exercise (1:1) completed Ole Carias DPT [address], [place], [address], [facility] 03/25/2024 15:51:30 4 14360: Manual therapy completed Ole Carias DPT [address], [place], [address], [facility] 03/25/2024 15:51:33 35862 Therapeutic Exercise (1:1) completed Ole Carias DPT [address], [place], [address], [facility] 03/18/2024 18:37:03 4 29910: Manual therapy completed Ole Carias DPT [address], [place], [address], [facility] 03/18/2024 18:39:36 88182 Therapeutic Exercise (1:1) completed Ole Carias DPT [address], [place], [address], [facility] 03/16/2024 18:28:36 41899: Manual therapy completed Ole Carias DPT [address], [place], [address], [facility] 03/13/2024 21:04:28 54767 Therapeutic Exercise (1:1) cancelled Lelia Aponte PTA [address], [place], [address], [facility] 03/10/2024 12:07:44 61711: Hot or Cold Pack cancelled Lelia Stewart, VENDING MECHANIC [address], [place], [address], [facility] 03/10/2024 12:07:43 4 68705: Manual therapy cancelled Lelia Stewart, VENDING MECHANIC [address], [place], [address], [facility] 03/10/2024 12:07:44 4 47275 Therapeutic Exercise (1:1) completed Lelia Stewart, VENDING MECHANIC [address], [place], [address], [facility] 03/06/2024 13:16:24 4 04054: Hot or Cold Pack completed Lelia Saldañay, VENDING MECHANIC [address], [place], [address], [facility] 03/09/2024 16:15:52 4 80083: Manual therapy completed Lelia Saldañay, VENDING MECHANIC [address], [place], [address], [facility] 03/06/2024 13:16:24 87664 Therapeutic Exercise (1:1) cancelled Lelia Stewart, VENDING MECHANIC [address], [place], [address], [facility] 03/05/2024 11:59:32 35304: Hot or Cold Pack cancelled Lelia Stewart, VENDING MECHANIC [address], [place], [address], [facility] 03/05/2024 11:59:32 33711: Manual therapy cancelled Lelia Stewart, VENDING MECHANIC [address], [place], [address], [facility] 03/05/2024 11:59:32 88885 Therapeutic Exercise (1:1) completed Lelia Stewart, VENDING MECHANIC [address], [place], [address], [facility] 03/04/2024 19:52:29 4 04068: Hot or Cold Pack completed Lelia Aponte PTA [address], [place], [address], [facility] 03/03/2024 12:04:34 4 97422: Manual therapy completed Lelia Aponte PTA [address], [place], [address], [facility] 03/03/2024 12:04:35 4 29778 Therapeutic Exercise (1:1) completed Ole Carias DPT [address], [place], [address], [facility] 02/27/2024 18:54:52 4 46056: Hot or Cold Pack completed Ole Carias DPT [address], [place], [address], [facility] 02/25/2024 19:32:04 4 92053: Manual therapy completed Ole Carias DPT [address], [place], [address], [facility] 02/25/2024 19:32:04 4 46008 Therapeutic Exercise (1:1) completed Ole Carias DPT [address], [place], [address], [facility] 02/19/2024 14:40:01 4 33169: Hot or Cold Pack completed Ole Carias DPT [address], [place], [address], [facility] 02/19/2024 14:40:22 4 33040: Manual therapy completed Ole Carias DPT [address], [place], [address], [facility] 02/19/2024 14:40:11 4 92036 Therapeutic Exercise (1:1) completed Ole Carias DPT [address], [place], [address], [facility] 02/17/2024 20:29:56 4 05377: Low complexity PT Eval completed Ole Carias DPT [address], [place], [address], [facility] 02/17/2024 20:30:03 4 Ankle Joint Asp & Inj, L/R Celestone 2cc completed Stephen Sibley MD [address], [place], [address], [facility] 12/26/2023 14:24:58 Imaging Results None recorded. Procedure Notes None recorded. Medical Equipment None Reported. Allergies Allergen ID Allergen Name Allergen Category Reaction Reaction Severity Criticality Documentation Date Start Date Code Code System Note Provider Name and Address Organization Details Recorded Time 984900 Zoloft medicatio n Not available Not available Not available 10/22/2023 55549 RxNorm KAYLIA L'HEUREUX [facility] 4 15:02:10 Medications Name Sig Start [...] Updated DateTime 10/13/2024 154.94 cm 23.8 kg/m2 84003.64 g Babsnate Landa [facility] 10/13/2024 15:41:45 Date Recorded Body height Body mass index (BMI) Body weight Provider Name and Address Organization Details Last Updated DateTime 04/03/2024 154.94 cm 23.8 kg/m2 48900.64 g Sabrina Gene [facility] 04/03/2024 12:36:57 Social History Question Answer Notes LastModified by [employer] Details LastModified Time Tobacco Smoking Status Never Smoker JOJO mcmullen [facility] 10/22/2023 15:04:53 What Is Your Relationship Status? Information not available 10/22/2023 Sex: Unknown Functional Status Question Answer Note LastModified by [employer] Details LastModified Time Do you use any [...] Disease N Heart Trouble N Heart Attack ([place]) N Gastrointestinal Disease N Cholesterol N Diabetes [...] SNOMED-CT Code Diagnosis ICD10 Code Diagnosis Note [id number] Harmony Inman PA-C [facility] [address] [place] [address] 10/22/2023 14:29:26 11/13/2023 14:14:19 Pain of left ankle joint 1679555304 9210885 M25.208 [id number] Stephen Sibley MD [facility] [address] [place] [address] 10/25/2023 14:22:14 12/03/2023 10:16:01 Pain of left ankle joint 5707462155 1682630 M25.572 Traumatic arthropathy-ankle 735265635 M12.762 [id number] Stephen Sibley MD [facility] [address] [place] [address] 12/26/2023 12:42:52 01/15/2024 14:21:52 Pain of left ankle joint 4854158192 2964991 M25.572 Fracture of ankle 961368 01 S82.92XA Traumatic arthropathy-ankle 891749266 M12.028 [id number] Ole Carias DPT [facility] [address] [place] [address] 02/17/2024 14:51:04 02/17/2024 16:45:49 Ankle pain 651969529 M25.652 [id number] Ole Carias DPT [facility] [address] [place] [address] 02/19/2024 13:59:23 02/19/2024 15:19:21 Ankle pain 903157272 M25.957 [id number] Ole Carias DPT [facility] [address] [place] [address] 02/27/2024 15:19:48 02/27/2024 16:40:12 Ankle pain 923354280 M25.813 [id number] Lelia Aponte VENDING MECHANIC [facility] [address] [place] [address] 03/04/2024 12:46:49 03/04/2024 13:50:17 Ankle pain 187519592 M25.342 [id number] Lelia Stewart, VENDING MECHANIC [facility] [address] [place] [address] 03/09/2024 14:43:51 03/09/2024 16:20:04 Ankle pain 759149027 M25.824 [id number] Ole Carias DPT [facility] [address] [place] [address] 03/16/2024 14:36:09 03/16/2024 15:45:11 Ankle pain 402341311 M25.105 [id number] Ole Carias DPT [facility] [address] [place] [address] 03/18/2024 14:27:22 03/18/2024 17:09:49 Ankle pain 888108826 M25.007 [id number] Ole Carias DPT [facility] [address] [place] [address] 03/25/2024 14:44:49 03/25/2024 16:15:36 Ankle pain 224067606 M25.826 [id number] Ole Carias DPT [facility] [address] [place] [address] 03/31/2024 08:16:28 03/31/2024 11:05:46 Ankle pain 215098059 M25.640 [id number] MD Deisi Persaud [address] [place] [address] 04/03/2024 12:32:28 04/23/2024 08:48:23 Pain of left ankle joint 3882396722 8578915 M25.572 Fracture of ankle 789645 01 S82.92XA Traumatic arthropathy-ankle 445047435 M12.521 [id number] Stephen Sibley MD [facility] [address] [place] [address] 10/13/2024 14:34:53 10/22/2024 09:04:42 Pain of left ankle joint 2977855710 5446320 M25.572 Fracture of ankle 314121 01 S82.92XA Traumatic arthropathy-ankle 624072798 M12.579 Health Concerns Section Related Observation LastModified by Organization Detai ls LastModified Time None Recorded Concern Status LastModified by Organization Details LastModified Time None Recorded Advance Directives Directive None Recorded Payers Insurance Date Sequence Insurance Name Policy Number Policy Hinds Covered Member ID Hinds Member ID Guarantor Name 04/08/2024 2 [facility] (MEDICAID HMO) [id number] Karie G G Wai de Sutton [id number] Karie G Wai de [place] 10/22/2024 1 [employer] (MEDICARE REPLACEMENT/AD VANTAGE - PPO) [id number] Karie G Wai [place] [id number] Karie G Wai de [place] 10/22/2024 2 [place] [facility] Karie G Wai de Sutton [id number] Karie G Wai de [place] Notes Date Note Type Note Provider Name and Address Organization Details Recorded Time 03/18/2024 text/html Patient presents today reporting 6/10 pain. Pt states her knee and ankle is sore. Ole Carias DPT [address], [place], [address], [facility] 03/18/2024 18:39:48 03/25/2024 text/html Patient presents today reporting 0/10 pain but had some increased pain yesterday due to a cold weather. Ole Carias DPT [address], [place], [address], [facility] 03/25/2024 15:54:58 03/31/2024 text/html Patient presents today reporting 3/10 pain. Pt states her ankle is sore today because of the cold weather. Pt feels PT helps and able to move her ankle better now. Ole Carias DPT [address], [place], [address], [facility] 03/31/2024 09:24:34 OBGyn Episode No OBEpisode recorded.
[2024-11-05 09:35] LABS: Basophils Percent Auto 0.9 % (0-2); Eosinophils Absolute Auto 0.1 X10*3/uL (0.0-0.4); Eosinophils Percent Auto 1.2 % (0-4); Hematocrit 36.2 % (37.0-47.0); Hemoglobin 12.1 g/dl (12.0-16.0); Imm Gran Abs Auto 0.01 X10*3/uL (0.00-0.03); Imm Gran Pct Auto 0.2 % (0.0-0.4); Lymphocytes Absolute Auto 1.5 X10*3/uL (1.2-4.9); Lymphocytes Percent Auto 35.4 % (20-40); Mean Corpuscular HGB Conc 33.4 g/dl (31.0-35.0); Mean Corpuscular Hemoglobin 29.7 pg (27.0-33.0); Mean Corpuscular Volume 88.7 fL (80.0-98.0); Mean Platelet Volume 10.2 fL (9.4-12.3); Monocytes Absolute Auto 0.3 X10*3/uL (0.1-1.2); Monocytes Percent Auto 5.9 % (2-11); Neutrophils Absolute Auto 2.4 x10*3/uL (2.0-8.3); Neutrophils Percent Auto 56.4 % (45-73); Platelet Count 270 X10*3/uL (160-400); Red Blood Count 4.08 X10*6/uL (4.20-5.50); Red Cell Distribution Width 13.6 % (11.0-16.0); White Blood Count 4.3 X10*3/uL (4.8-10.8)
[2024-11-05 09:44] LABS: Estimated Average Glucose 108 mg/dL; Hemoglobin A1c % 5.4 % (<6.0)
[2024-11-05 10:11] LABS: Anion Gap 9 (12-20); Blood Urea Nitrogen 21 mg/dL (9-16); C Reactive Protein < 0.10 mg/dL (< or = 0.50); Calcium 10.3 mg/dL (8.4-10.2); Carbon Dioxide 25 mmol/L (22-29); Chloride 114 mmol/L (96-108); Cholesterol 229 mg/dL (<200); Estimated Glomerular Filt Rate > 60; Glucose Random 89 mg/dL (60-115); HDL Cholesterol 69 mg/dL (>40); Iron 70 mcg/dL (30-160); LDL Cholesterol Calculated 140 mg/dL (<100); Percent Iron Saturation 27 % (15-50); Potassium 3.9 mmol/L (3.3-5.1); Sodium 144 mmol/L (135-145); Total Iron Binding Capacity 263 mcg/dL (228-428); Triglycerides 101 mg/dL (<150); Unsaturated Iron Binding 193 ug/dL
[2024-11-05 10:37] LABS: Ferritin 220 ng/mL (10-250); TSH reflex Free T4 1.16 uIU/mL (0.32-4.0); Vitamin D 25-OH Total 38.5 ng/mL (>30)
[2024-11-05 10:41] LABS: Folate > 20.0 ng/mL (> or = 4.0); Vitamin B12 520 pg/mL (200-900)
[2024-11-05 10:54] LABS: Insulin 7 uU/mL (2-29)
[2024-11-10 00:34] LABS: Zinc 97 mcg/dL (60-130)
[2024-11-10 02:29] LABS: Vitamin A 94 mcg/dL (38-98)
[2024-11-10 16:44] LABS: Vitamin B1 60 nmol/L (8-30)
== END 2024-11-05 08:54 | disposition home or self-care (01) ==
LOC: HO.LAB 08:53
PROVIDERS: Visit Provider Physician Assistant Surgical
DX: Z98.84 Bariatric surgery status (principal); K74.00 Hepatic fibrosis, unspecified; E78.5 Hyperlipidemia, unspecified; F41.9 Anxiety disorder, unspecified; Z13.1 Encounter for screening for diabetes mellitus
CPT/HCPCS: 36415; 80048; 80061; 82306; 82607; 82728; 82746; 83036; 83525; 83540; 84425; 84443; 84590; 84630; 85025; 86140